=== PATIENT | female | born 1955 | race Caucasian/White ===

== ENCOUNTER 2020-11-20 15:38 | Inpatient (IN) ==
--- OUTSIDE RECORDS SUMMARY | 2020-11-20 15:40 | External Medical Summary | Continuity of Care Document ---
:1955 Author Name Waldemar Vega Address Unavailable Unavailable , Care Team Providers Name Role Phone Osbaldo Pitts III, M.D.. Unavailable 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 Refills: 0 traMADol HCl - 50 MG Oral Tablet; TAKE 1 TABLET EVERY 4 HOUR S NEEDED. Refills: 0 metFORMIN HCl - 500 MG Oral Tablet; TAKE 1 TABLET TWICE NATALEE Y WITH MEALS. Refills: 0 Lisinopril 10 MG Oral Tablet; TAKE 1 TABLET DAILY. Refills: 0 Glimepiride 2 MG Oral Tablet; TAKE 1 TABLET DAILY WITH BREAK FAST. Refills: 0 FLUoxetine HCl - 20 MG Oral Capsule; TAKE 1 CAPSULE DAILY. Refills: 0 Clopidogrel Bisulfate 75 MG Oral Tablet; TAKE 1 TABLET DAILY . Refills: 0 Atorvastatin Calcium 40 MG Oral Tablet; TAKE 1 TABLET DAILY. Refills: 0 ALPRAZolam 0.25 MG Oral Tablet; TAKE 0.5 MG BY MOUTH EVERY 8 HOURS NEEDED. Refills: 0 Procedures Procedures not documented Immunizations Immunizations not documented Social History - Smoking Status Ex-smoker Ex-smoker Plan of Treatment Planned Observations Planned Goals not documented Results No Known Results Results not documented
[2020-11-20] MEDS ORDERED: SODIUM CHLORIDE 0.9% 1000ML 1,000 ML IV ONE ×2 (16:04→16:28)
[2020-11-20] MEDS ORDERED: ONDANSETRON INJ 2 MG/ML 2 ML VIAL IV STA (16:07)
--- NOTE | 2020-11-20 16:07 | Emergency Department Note ---
Impression & Plan Sepsis, Pyelonephritis, SAURAV (acute kidney injury) ED Provider Note NAME: EYAL COULTER AGE: 65 SEX: F : 1955 ARRIVES VIA: Ambulance INFORMANT: Patient ED PROVIDER(S): Wilfredo Ruiz DO CHIEF COMPLAINT: vomiting HPI: Patient is a 65-year-old female with a past medical history of hyperlipidemia, hypertension, diabetes and cerebral hemorrhage that presents to the ER for left flank pain associate with nausea and vomiting. Symptoms started Wednesday. She has left mid abdominal pain. No other exacerbating or remitting factors. Patient has been unable to keep any of his medications down. Denies any cough or runny nose. Had dysuria last week along with blood in the urine but nothing since then. No other exacerbating or remitting factors. She has been unable to keep down any food. She has fallen twice as she having trouble walking intermittently when she feels lightheaded. ROS: See above HPI for pertinent positives & negatives. A total of 10 systems reviewed and were otherwise negative. PAST MEDICAL HISTORY:See Below PAST SURGICAL HISTORY:See Below FAMILY HISTORY:See Below SOCIAL HISTORY:See Below HOME MEDICATIONS:See Below ALLERGIES:See Below VITALS:See Below PHYSICAL EXAMINATION: GENERAL: Sitting up in bed, alert, ill-appearing, disheveled EYE EXAM: normal conjunctiva. OROPHARYNX: no exudate, no erythema, lips, buccal mucosa, and tongue normal and mucous membranes are dry NECK: supple, no nuchal rigidity, no adenopathy, non-tender LUNGS: Clear to auscultation. Normal chest wall mechanics HEART: Tachycardic, S1 normal and S2 normal ABDOMEN: abdomen soft, tender in left midabdomen, normo-active bowel sounds, no masses, no rebound or guarding. BACK: Back is symmetrical on inspection and there is no deformity, no midline tenderness, no CVA tenderness. SKIN: no rashes and no bruising UPPER EXTREMITIES: upper extremities are grossly normal. LOWER EXTREMITIES: No pitting edema. NEURO EXAM: Normal sensorium, cranial nerves II-XII intact, normal speech, no weakness of arms, no weakness of legs. No drift. Finger to nose intact. Gross sensation intact. MEDICAL DECISION MAKING: Patient is a 65-year-old female who presents to the ER for vomiting and flank pain. IV was established blood work was obtained. Labs show leukocytosis of 18,000. Heart rate was fairly tachycardic in the low 100s. VBG was unremarkable. BMP with a sodium of 121 and a chloride of 84 with a creatinine of 2.5 up from baseline of 1. Glucose was elevated at 500. LFTs bilirubin was unremarkable. Lipase was normal. Patient was started on insulin drip and given a bolus. Urine was nitrite positive with epithelial cells bacteria and white cells suggestive of contamination likely infection. Covid was negative. CT abdomen pelvis shows likely a pyelonephritis. Patient was given broad-spectrum antibiotics and 2 L IV fluids was updated bedside discussed with the hospitalist for further work-up. Triage Nursing notes reviewed. Limited review of prior medical records performed Vital Signs: reviewed and remarkable for tachy Differential diagnosis: Infection, dehydration, metabolic abnormality, hypo/hyperglycemia, electrolyte disturbance, anemia, hypoxia, cardiac sources, intracerebral event, toxicologic, neurologic, as well as other pathologies. ER treatment provided: See below Diagnostics interpreted by me: ECG: Sinus tachycardia rate of 106 Normal axis No PVCs QTC [address] wave changes throughout the inferior anterior and lateral Cardiac Monitoring: An order was placed for continuous cardiac monitoring. The monitor shows a rate of 104 with sinus rhythm. Laboratory studies: As stated above and show below. Imaging studies: CT the head shows no acute pathology CT abdomen pelvis shows likely pyelonephritis X-ray of the shoulder and chest x-ray showed no acute pathology Consultation(s): Discussed with the hospitalist for further evaluation Procedures: none Critical Care: I have personally spent 45 minutes of critical care time in the direct management of this patient. This includes bedside care, interpretation of diagnostic studies, and testing, discussion with consultants, patient, and [facility] members, and other required patient management activities. This 45 minutes is in excess of all separately billable procedures. Past Med/Surg History Medical History (Updated 11/20/20 @ 20:38 by Wilfredo Ruiz DO) Anxiety and depression CVA (cerebral vascular accident) Diabetes mellitus, type II Dyslipidemia HTN (hypertension) Surgical History (Updated 11/20/20 @ 18:02 by Manyd Torres PA-C) H/O cerebral aneurysm repair 1976 Family History (Updated 11/20/20 @ 18:52 by Mandy Torres PA-C) Other Cancer Hypertension Social History (Updated 11/20/20 @ 18:53 by Mandy Torres PA-C) Smoking Status: Former smoker Tobacco Type: Cigarettes Hx Alcohol Use: Yes Alcohol type: wine Alcohol Intake Frequency: Monthly or Less Hx Substance Use: No Preferred Language: [place] Beliefs That Will Affect Care: None Current Living Situation: Alone Feels Safe at Home: Yes Safety Concerns: Feels Safe At This Time Assistive Devices: None Allergies Allergies Allergy/AdvReac Type Severity Reaction Status Date / Time Penicillins Allergy Unknown Unknown Verified 11/20/20 17:30 phenytoin Allergy Unknown Hives Verified 11/20/20 17:30 Home Meds Home Medications Medication Instructions Recorded Confirmed bupropion HCl 150 mg PO BID 11/20/20 11/20/20 clopidogrel 75 mg PO DAILY 11/20/20 11/20/20 glimepiride 6 mg PO DAILYBB 11/20/20 11/20/20 hydroxyzine pamoate 25 mg PO HS PRN 11/20/20 11/20/20 lisinopril-hydrochlorothiazide 1 tab PO DAILY 11/20/20 11/20/20 metformin 1,000 mg PO BIDM 11/20/20 11/20/20 simvastatin 40 mg PO HS 11/20/20 11/20/20 Results & Data (ED) Vital Signs Vital Signs - 24 hr 11/20/20 15:58 11/20/20 17:30 Temperature 36.9 C Temperature Source Oral Pulse Rate 107 H Pulse Rate [Right Finger] 102 H Respiratory Rate 24 16 Respiratory Effort / Characteristics Non-Labored Spontaneous Respiratory Depth Normal Respiratory Pattern Regular Blood Pressure 124/101 H Blood Pressure [Right Arm] 133/88 Blood Pressure Mean 108 Blood Pressure Mean [Right Arm] 103 Blood Pressure Position Lying Pulse Oximetry 97 96 Oxygen Delivery Method Room Air Room Air Sepsis Recent Fever Within 48 Hours No Sepsis New/Unexplained Change in Mental Status N/A Sepsis Action Taken by Nursing No Action Required Laboratory Data Result diagrams: 11/20/20 15:53 11/20/20 15:53 Lab Results 11/20/20 11/20/20 11/20/20 Range/Units 15:50 15:53 15:53 WBC 18.95 H (4.8-10.8) K/uL RBC 4.82 (4.2-5.4) M/uL Hgb 13.0 (12.0-16.0) g/dL POC Hgb (12.0-16.0) g/dl Hct 37.7 (37-47) % POC Hct (37-47) % MCV 78.2 L (80-100) fL MCH 27.0 (25-34) pg MCHC 34.5 (32-36) g/dL RDW Std Deviation 40.0 (36.4-46.3) fL RDW Coeff of Jam 14.0 (11.5-14.5) % Plt Count 249 (130-400) K/uL MPV 11.7 H (7.4-10.4) fL Immature Gran % (Auto) 0.7 % Neut % (Auto) 86.3 % Lymph % (Auto) 6.2 % [place] % (Auto) 6.6 % Eos % (Auto) 0.1 % Baso % (Auto) 0.1 % Neut # (Auto) 16.37 H (1.4-6.5) K/uL Lymph # (Auto) 1.17 L (1.2-3.4) K/uL [place] # (Auto) 1.25 H (0.11-0.59) K/uL Eos # (Auto) 0.01 (0-0.5) K/uL Baso # (Auto) 0.02 (0-0.2) K/uL Immature Gran # (Auto) 0.13 H (0.00-0.02) K/uL VBG pH (7.36-7.41) VBG pCO2 (38-50) mmHg VBG pO2 mmHg VBG HCO3 mmol/L VBG O2 Saturation % VBG Base Excess mEq/L Barometric Pressure mm/Hg POC Sodium (135-144) mmol/L Sodium 121 L (136-145) mmol/L POC Potassium (3.3-5.0) mmol/L Potassium 3.8 (3.5-5.1) mmol/L POC Chloride (101-112) mmol/L Chloride 84 L (98-107) mmol/L Carbon Dioxide 24 (21-32) mmol/L POC Total CO2 (24-31) mmol/L Anion Gap 13.0 H (3-11) POC Anion Gap (16-25) mmol/L POC BUN (7-18) mg/dl BUN 56 H (7-18) mg/dl Creatinine 2.58 H (0.6-1.2) mg/dl POC Creatinine (0.6-1.3) mg/dl Est Cr Clr Drug Dosing 23.0 ml/min Est GFR ( Amer) 22.1 Est GFR (Non-Af Amer) 19.0 BUN/Creatinine Ratio 21.9 H (10-20) Glucose 480 H* (70-99) mg/dl POC Glucose 510 H* (70-99) mg/dl POC Glucose (other) (70-99) mg/dl Calcium 9.2 (8.5-10.1) mg/dl POC Ioniz Calcium Trixie (1.12-1.32) mmol/l Phosphorus (2.5-4.9) mg/dl Magnesium (1.8-2.4) mg/dl Total Bilirubin 0.5 (0.2-1) mg/dl AST 17 (15-37) U/L ALT 11 L (12-78) U/L Alkaline Phosphatase 175 H (45-117) U/L Troponin I < 0.015 (0-0.045) ng/ml Total Protein 8.3 H (6.4-8.2) gm/dl Albumin 2.3 L (3.4-5.0) gm/dl Globulin 6.0 H (2.5-4.0) gm/dl Albumin/Globulin Ratio 0.4 L (0.9-2) Lipase 127 (73-393) U/L Beta-Hydroxybutyric Acd (0.2-2.81) mg/dl Urine Color Urine Appearance (Clear) Urine pH (4.5-7.5) Ur Specific [place] (1.000-1.030) Urine Protein (Negative) Urine Glucose (UA) (Negative) Urine Ketones (Negative) Urine Blood (Negative) Urine Nitrite (Negative) Urine Bilirubin (Negative) Urine Urobilinogen (Negative) Ur Leukocyte Esterase (Negative) Urine WBC (Auto) (0-5) /hpf Urine RBC (Auto) (0-4) /hpf U Hyaline Cast (Auto) (0-5) /lpf U Epithel Cells (Auto) (0-5) /lpf Urine Bacteria (Auto) (Negative) Urine Yeast COVID-19 Eval Order SARS-CoV-2, RNA, NAAT (NEGATIVE) 11/20/20 11/20/20 11/20/20 Range/Units 15:53 16:19 16:20 WBC (4.8-10.8) K/uL RBC (4.2-5.4) M/uL Hgb (12.0-16.0) g/dL POC Hgb (12.0-16.0) g/dl Hct (37-47) % POC Hct (37-47) % MCV (80-100) fL MCH (25-34) pg MCHC (32-36) g/dL RDW Std Deviation (36.4-46.3) fL RDW Coeff of Jam (11.5-14.5) % Plt Count (130-400) K/uL MPV (7.4-10.4) fL Immature Gran % (Auto) % Neut % (Auto) % Lymph % (Auto) % [place] % (Auto) % Eos % (Auto) % Baso % (Auto) % Neut # (Auto) (1.4-6.5) K/uL Lymph # (Auto) (1.2-3.4) K/uL [place] # (Auto) (0.11-0.59) K/uL Eos # (Auto) (0-0.5) K/uL Baso # (Auto) (0-0.2) K/uL Immature Gran # (Auto) (0.00-0.02) K/uL VBG pH 7.38 (7.36-7.41) VBG pCO2 44 (38-50) mmHg VBG pO2 27 mmHg VBG HCO3 25 mmol/L VBG O2 Saturation < 60.0 % VBG Base Excess 0 mEq/L Barometric Pressure 724.9 mm/Hg POC Sodium (135-144) mmol/L Sodium (136-145) mmol/L POC Potassium (3.3-5.0) mmol/L Potassium (3.5-5.1) mmol/L POC Chloride (101-112) mmol/L Chloride (98-107) mmol/L Carbon Dioxide (21-32) mmol/L POC Total CO2 (24-31) mmol/L Anion Gap (3-11) POC Anion Gap (16-25) mmol/L POC BUN (7-18) mg/dl BUN (7-18) mg/dl Creatinine (0.6-1.2) mg/dl POC Creatinine (0.6-1.3) mg/dl Est Cr Clr Drug Dosing ml/min Est GFR ( Amer) Est GFR (Non-Af Amer) BUN/Creatinine Ratio (10-20) Glucose (70-99) mg/dl POC Glucose (70-99) mg/dl POC Glucose (other) (70-99) mg/dl Calcium (8.5-10.1) mg/dl POC Ioniz Calcium Trixie (1.12-1.32) mmol/l Phosphorus 3.2 (2.5-4.9) mg/dl Magnesium 2.4 (1.8-2.4) mg/dl Total Bilirubin (0.2-1) mg/dl AST (15-37) U/L ALT (12-78) U/L Alkaline Phosphatase (45-117) U/L Troponin I (0-0.045) ng/ml Total Protein (6.4-8.2) gm/dl Albumin (3.4-5.0) gm/dl Globulin (2.5-4.0) gm/dl Albumin/Globulin Ratio (0.9-2) Lipase (73-393) U/L Beta-Hydroxybutyric Acd (0.2-2.81) mg/dl Urine Color Urine Appearance (Clear) Urine pH (4.5-7.5) Ur Specific [place] (1.000-1.030) Urine Protein (Negative) Urine Glucose (UA) (Negative) Urine Ketones (Negative) Urine Blood (Negative) Urine Nitrite (Negative) Urine Bilirubin (Negative) Urine Urobilinogen (Negative) Ur Leukocyte Esterase (Negative) Urine WBC (Auto) (0-5) /hpf Urine RBC (Auto) (0-4) /hpf U Hyaline Cast (Auto) (0-5) /lpf U Epithel Cells (Auto) (0-5) /lpf Urine Bacteria (Auto) (Negative) Urine Yeast COVID-19 Eval Order Covid19 IDNow [facility] SARS-CoV-2, RNA, NAAT (NEGATIVE) 11/20/20 11/20/20 11/20/20 Range/Units 16:20 16:21 17:20 WBC (4.8-10.8) K/uL RBC (4.2-5.4) M/uL Hgb (12.0-16.0) g/dL POC Hgb 13.6 (12.0-16.0) g/dl Hct (37-47) % POC Hct 40 (37-47) % MCV (80-100) fL MCH (25-34) pg MCHC (32-36) g/dL RDW Std Deviation (36.4-46.3) fL RDW Coeff of Jam (11.5-14.5) % Plt Count (130-400) K/uL MPV (7.4-10.4) fL Immature Gran % (Auto) % Neut % (Auto) % Lymph % (Auto) % [place] % (Auto) % Eos % (Auto) % Baso % (Auto) % Neut # (Auto) (1.4-6.5) K/uL Lymph # (Auto) (1.2-3.4) K/uL [place] # (Auto) (0.11-0.59) K/uL Eos # (Auto) (0-0.5) K/uL Baso # (Auto) (0-0.2) K/uL Immature Gran # (Auto) (0.00-0.02) K/uL VBG pH (7.36-7.41) VBG pCO2 (38-50) mmHg VBG pO2 mmHg VBG HCO3 mmol/L VBG O2 Saturation % VBG Base Excess mEq/L Barometric Pressure mm/Hg POC Sodium 120 L (135-144) mmol/L Sodium (136-145) mmol/L POC Potassium 3.9 (3.3-5.0) mmol/L Potassium (3.5-5.1) mmol/L POC Chloride 86 L (101-112) mmol/L Chloride (98-107) mmol/L Carbon Dioxide (21-32) mmol/L POC Total CO2 26 (24-31) mmol/L Anion Gap (3-11) POC Anion Gap 13.0 L (16-25) mmol/L POC BUN 60 H (7-18) mg/dl BUN (7-18) mg/dl Creatinine (0.6-1.2) mg/dl POC Creatinine 2.5 H (0.6-1.3) mg/dl Est Cr Clr Drug Dosing ml/min Est GFR ( Amer) Est GFR (Non-Af Amer) BUN/Creatinine Ratio (10-20) Glucose (70-99) mg/dl POC Glucose (70-99) mg/dl POC Glucose (other) 501 H* (70-99) mg/dl Calcium (8.5-10.1) mg/dl POC Ioniz Calcium Trixie 1.02 L (1.12-1.32) mmol/l Phosphorus (2.5-4.9) mg/dl Magnesium (1.8-2.4) mg/dl Total Bilirubin (0.2-1) mg/dl AST (15-37) U/L ALT (12-78) U/L Alkaline Phosphatase (45-117) U/L Troponin I (0-0.045) ng/ml Total Protein (6.4-8.2) gm/dl Albumin (3.4-5.0) gm/dl Globulin (2.5-4.0) gm/dl Albumin/Globulin Ratio (0.9-2) Lipase (73-393) U/L Beta-Hydroxybutyric Acd (0.2-2.81) mg/dl Urine Color Yellow Urine Appearance Turbid A (Clear) Urine pH 5.5 (4.5-7.5) Ur Specific [place] 1.022 (1.000-1.030) Urine Protein 3+ H (Negative) Urine Glucose (UA) 3+ H (Negative) Urine Ketones 1+ H (Negative) Urine Blood 3+ H (Negative) Urine Nitrite Positive A (Negative) Urine Bilirubin Negative (Negative) Urine Urobilinogen Negative (Negative) Ur Leukocyte Esterase 2+ H (Negative) Urine WBC (Auto) >30 H (0-5) /hpf Urine RBC (Auto) 10-30 H (0-4) /hpf U Hyaline Cast (Auto) 1-5 (0-5) /lpf U Epithel Cells (Auto) >30 H (0-5) /lpf Urine Bacteria (Auto) 4+ H (Negative) Urine Yeast Not Reportable COVID-19 Eval Order SARS-CoV-2, RNA, NAAT NEGATIVE (NEGATIVE) 11/20/20 Range/Units 17:28 WBC (4.8-10.8) K/uL RBC (4.2-5.4) M/uL Hgb (12.0-16.0) g/dL POC Hgb (12.0-16.0) g/dl Hct (37-47) % POC Hct (37-47) % MCV (80-100) fL MCH (25-34) pg MCHC (32-36) g/dL RDW Std Deviation (36.4-46.3) fL RDW Coeff of Jam (11.5-14.5) % Plt Count (130-400) K/uL MPV (7.4-10.4) fL Immature Gran % (Auto) % Neut % (Auto) % Lymph % (Auto) % [place] % (Auto) % Eos % (Auto) % Baso % (Auto) % Neut # (Auto) (1.4-6.5) K/uL Lymph # (Auto) (1.2-3.4) K/uL [place] # (Auto) (0.11-0.59) K/uL Eos # (Auto) (0-0.5) K/uL Baso # (Auto) (0-0.2) K/uL Immature Gran # (Auto) (0.00-0.02) K/uL VBG pH (7.36-7.41) VBG pCO2 (38-50) mmHg VBG pO2 mmHg VBG HCO3 mmol/L VBG O2 Saturation % VBG Base Excess mEq/L Barometric Pressure mm/Hg POC Sodium (135-144) mmol/L Sodium (136-145) mmol/L POC Potassium (3.3-5.0) mmol/L Potassium (3.5-5.1) mmol/L POC Chloride (101-112) mmol/L Chloride (98-107) mmol/L Carbon Dioxide (21-32) mmol/L POC Total CO2 (24-31) mmol/L Anion Gap (3-11) POC Anion Gap (16-25) mmol/L POC BUN (7-18) mg/dl BUN (7-18) mg/dl Creatinine (0.6-1.2) mg/dl POC Creatinine (0.6-1.3) mg/dl Est Cr Clr Drug Dosing ml/min Est GFR ( Amer) Est GFR (Non-Af Amer) BUN/Creatinine Ratio (10-20) Glucose (70-99) mg/dl POC Glucose 452 H* (70-99) mg/dl POC Glucose (other) (70-99) mg/dl Calcium (8.5-10.1) mg/dl POC Ioniz Calcium Trixie (1.12-1.32) mmol/l Phosphorus (2.5-4.9) mg/dl Magnesium (1.8-2.4) mg/dl Total Bilirubin (0.2-1) mg/dl AST (15-37) U/L ALT (12-78) U/L Alkaline Phosphatase (45-117) U/L Troponin I (0-0.045) ng/ml Total Protein (6.4-8.2) gm/dl Albumin (3.4-5.0) gm/dl Globulin (2.5-4.0) gm/dl Albumin/Globulin Ratio (0.9-2) Lipase (73-393) U/L Beta-Hydroxybutyric Acd (0.2-2.81) mg/dl Urine Color Urine Appearance (Clear) Urine pH (4.5-7.5) Ur Specific [place] (1.000-1.030) Urine Protein (Negative) Urine Glucose (UA) (Negative) Urine Ketones (Negative) Urine Blood (Negative) Urine Nitrite (Negative) Urine Bilirubin (Negative) Urine Urobilinogen (Negative) Ur Leukocyte Esterase (Negative) Urine WBC (Auto) (0-5) /hpf Urine RBC (Auto) (0-4) /hpf U Hyaline Cast (Auto) (0-5) /lpf U Epithel Cells (Auto) (0-5) /lpf Urine Bacteria (Auto) (Negative) Urine Yeast COVID-19 Eval Order SARS-CoV-2, RNA, NAAT (NEGATIVE) Administered Medications Insulin Human Regular 250 (units/ Sodium Chloride) 250 mls @ 3.3 mls/hr IV .Q24H [facility]; Protocol Stop: 12/20/20 17:14 Last Titration: 11/20/20 19:48 Dose: 4 units/hr, 4 mls/hr Documented by: [id number] Cosigned by: [id number] Admin: 11/20/20 18:38 Dose: 3.3 units/hr, 3.3 mls/hr Documented by: [id number] Cosigned by: [id number] Discontinued Medications Sodium Chloride (Nss 1000ml) 1,000 mls @ 999 mls/hr IV .Q1H1M ONE Stop: 11/20/20 17:04 Last Infusion: 11/20/20 17:23 Dose: 0 mls/hr Documented by: [id number] Admin: 11/20/20 16:27 Dose: 999 mls/hr Documented by: [id number] Potassium Chloride (K Shahram / Wtr) 10 meq in 100 mls @ 100 mls/hr IV Q1H DAVID Stop: 11/20/20 18:29 Last Admin: 11/20/20 18:46 Dose: 100 mls/hr Documented by: [id number] Infusion: 11/20/20 18:09 Dose: 0 mls/hr Documented by: [id number] Admin: 11/20/20 17:02 Dose: 100 mls/hr Documented by: [id number] Sodium Chloride (Nss 1000ml) 1,000 mls @ 999 mls/hr IV .Q1H1M ONE Stop: 11/20/20 17:28 Last Infusion: 11/20/20 19:15 Dose: 0 mls/hr Documented by: [id number] Admin: 11/20/20 18:09 Dose: 999 mls/hr Documented by: [id number] Cefepime HCl (Maxipime) 2,000 mg in 20 mls @ 5 mls/min IV NOW STA; Protocol Stop: 11/20/20 17:18 Last Admin: 11/20/20 18:37 Dose: 5 mls/min Documented by: [id number] Insulin Human Regular (Novolin-R Bolus From Bag) 3.5 units IV ONE ONE Stop: 11/20/20 17:46 Last Admin: 11/20/20 18:40 Dose: 3.5 units Documented by: [id number] Cosigned by: [id number] Miscellaneous (Insulin Protocol Goal Range ) 1 ea N/A ONE ONE Stop: 11/20/20 17:16 Last Admin: 11/20/20 18:46 Dose: Not Given Documented by: [id number] Ondansetron HCl (Ondansetron Inj 2 Mg/Ml 2 Ml Vial) 4 mg IV NOW STA Stop: 11/20/20 16:08 Last Admin: 11/20/20 16:27 Dose: 4 mg Documented by: [id number] Discharge Plan Visit Data Chief Complaint: Vomiting Stated Complaint: VOMITING, WEAKNESS, HYPERGLYCEMIA ED Provider: Wilfredo Ruiz Discharge Problem: Sepsis, Pyelonephritis, SAURAV (acute kidney injury) Patient Disposition: Admitted As Inpatient Discharge Instructions Interventions: ED Discharge Assessment Last Done: 11/20/20 19:17 Discharge Problem: Sepsis Qualifiers: Sepsis type: sepsis due to unspecified organism Sepsis acute organ dysfunction status: unspecified Qualified Code(s): A41.9 - Sepsis, unspecified organism
[2020-11-20 16:14] LABS: Basophils # (auto) 0.02 K/uL (0-0.2); Basophils % (auto) 0.1 %; Eosinophils # (auto) 0.01 K/uL (0-0.5); Eosinophils % (auto) 0.1 %; Hematocrit (blood only) 37.7 % (37-47); Immature Granulocytes # (auto) 0.13 K/uL (0.00-0.02); Immature Granulocytes % (auto) 0.7 %; Lymphocytes # (auto) 1.17 K/uL (1.2-3.4); Lymphocytes % (auto) 6.2 %; Mean Corpuscular Hgb Conc 34.5 g/dL (32-36); Mean Corpuscular Volume 78.2 fL (80-100); Mean Platelet Volume 11.7 fL (7.4-10.4); Monocytes # (auto) 1.25 K/uL (0.11-0.59); Monocytes % (auto) 6.6 %; Neutrophils # (auto) 16.37 K/uL (1.4-6.5); Neutrophils % (auto) 86.3 %; Platelet Count 249 K/uL (130-400); Red Blood Count 4.82 M/uL (4.2-5.4); White Blood Count 18.95 K/uL (4.8-10.8)
--- NOTE | 2020-11-20 16:22 | Electrocardiogram Report ---
Test Reason : Blood Pressure : / mmHG Vent. Rate : 106 BPM Atrial Rate : 106 BPM P-R Int : 164 ms QRS Dur : 078 ms QT Int : 320 ms P-R-T Axes : 071 003 047 degrees QTc Int : 425 ms Sinus tachycardia Otherwise normal ECG When compared with ECG of 06-MAY-2016 12:08, Criteria for Septal infarct are no longer Present Nonspecific T wave abnormality no longer evident in Inferior leads Confirmed by Mitchell Alarcon ([id number]) on 11/20/2020 4:21:54 PM Referred By: REFERRED SELF Confirmed By:Mitchell Alarcon
--- NOTE | 2020-11-20 16:29 | XRay Report ---
SINGLE VIEW CHEST CLINICAL HISTORY: Atypical chest pain. FINDINGS: An AP, portable, upright chest radiograph is compared to study dated 05/06/2016. The cardiom ediastinal silhouette is unremarkable. There is bibasilar scarring/atelectasis. No airspace consolida tion or large pleural effusion is identified. No pneumothorax is seen. The skeletal structures are os teopenic. The bony thorax is grossly intact. IMPRESSION: No acute cardiopulmonary abnormality. ACT 112: Negative or not required by law. Electronically signed by: Carl Costello M.D. 11/20/2020 4:27 PM
--- NOTE | 2020-11-20 16:30 | XRay Report ---
LEFT SHOULDER 3 VIEWS CLINICAL HISTORY: Left shoulder pain. FINDINGS: 3 views of the left shoulder are obtained. No prior studies are available for comparison at the time of dictation. The skeletal structures are osteopenic. There is no radiographic evidence of fracture or dislocation. The glenohumeral and acromioclavicular joints are maintained. There is evide nce of calcific tendinopathy. The overlying soft tissues are otherwise normal in appearance. The left lung parenchyma is clear as visualized. IMPRESSION: 1. No acute bony abnormality is identified. 2. Calcific tendinopathy. Electronically signed by: Carl Costello M.D. 11/20/2020 4:28 PM
[2020-11-20 16:31] LABS: Base Excess VBG 0 mEq/L; HCO3 VBG 25 mmol/L; PCO2 VBG 44 mmHg (38-50); PO2 VBG 27 mmHg; pH VBG 7.38 (7.36-7.41)
[2020-11-20 16:36] LABS: iSTAT Creatinine 2.5 mg/dl (0.6-1.3); iSTAT Hemoglobin 13.6 g/dl (12.0-16.0); iSTAT Ionized Calcium 1.02 mmol/l (1.12-1.32); iSTAT Potassium 3.9 mmol/L (3.3-5.0)
[2020-11-20 16:52] LABS: Alanine Aminotransferase 11 U/L (12-78); Albumin Globulin Ratio 0.4 (0.9-2); Albumin Level 2.3 gm/dl (3.4-5.0); Alkaline Phosphatase 175 U/L (45-117); BUN Creatinine Ratio 21.9 (10-20); Bilirubin,Total 0.5 mg/dl (0.2-1); Blood Urea Nitrogen 56 mg/dl (7-18); Calcium 9.2 mg/dl (8.5-10.1); Carbon Dioxide 24 mmol/L (21-32); Chloride 84 mmol/L (98-107); Est GFR (African American) 22.1; Glucose 480 mg/dl (70-99); Lipase 127 U/L (73-393); Sodium 121 mmol/L (136-145); Total Protein 8.3 gm/dl (6.4-8.2); Troponin I < 0.015 ng/ml (0-0.045)
--- NOTE | 2020-11-20 16:55 | CT Scan Report ---
CT SCAN OF THE BRAIN WITHOUT IV CONTRAST CLINICAL HISTORY: Fall. COMPARISON STUDY: CT of the brain dated 05/06/2016. TECHNIQUE: Unenhanced axial CT scan of the brain is performed from the vertex to the skull base. A d ose lowering technique was utilized adhering to the principles of ALARA. The examination is degraded by streak artifact from aneurysm coils. 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 There is ex vacuo dilatation of the right lateral ventricle. There is no hemorrhage, mass effect, or evidence of acute territorial ischemia by CT criteria. Hamilton-white matter differentiation is preserved. No extra-axial fluid collection is seen. Ventricles, sulci, cisterns: Normal in configuration. Intracranial vasculature: There is atherosclerotic calcification of the cavernous carotid arteries. A neurysm coils are noted in the right aspect of the suprasellar region. Calvarium: The skeletal structures are osteopenic. There is postoperative change along the right conv exity. No depressed calvarial fracture is identified. Sinuses and mastoids: The visualized paranasal sinuses are clear. The mastoid air cells are well pneu matized. Orbits: The bony orbits are grossly intact. IMPRESSION: 1. There is no hemorrhage, mass effect, or evidence of acute territorial ischemia by CT criteria. 2. Chronic and postoperative changes as above. ACT 112: Negative or not required by law. Electronically signed by: Carl Costello M.D. 11/20/2020 4:53 PM
[2020-11-20 16:56] LABS: Oxygen Saturation VBG < 60.0 %
[2020-11-20] MEDS: POTASSIUM CHLORIDE / WTR 10 MEQ/100 ML PLCT IV SCH ×2 (17:02→18:46)
--- NOTE | 2020-11-20 17:02 | CT Scan Report ---
CT OF THE ABDOMEN AND PELVIS WITHOUT CONTRAST CLINICAL HISTORY: Left-sided abdominal pain. COMPARISON STUDY: No previous studies for comparison. TECHNIQUE: Axial images of the abdomen and pelvis were obtained without IV contrast. Images were revi ewed in the axial, sagittal, and coronal planes. Automated exposure control was utilized for the cain dy. A dose lowering technique was utilized adhering to the principles of ALARA. FINDINGS: Lung bases are unremarkable. No pneumatosis, free air or portal venous gas is present. Ther e is a sebaceous cyst of the right lower back. No renal, ureteral or bladder calculi are present. The re is no hydronephrosis or hydroureter. There is asymmetric mild left perinephric infiltration. The l eft kidney may be enlarged. There is possible wall thickening of the left ureter. No renal fluid leno ection is identified on this unenhanced examination. Evaluation of the abdomen and pelvis is suboptim al on this unenhanced examination. A 2.1 cm low-attenuation left adrenal nodule favors an adenoma. Th e liver, spleen, right adrenal gland and pancreas are unremarkable. There is no biliary or pancreatic ductal dilatation. There is no evidence for a bowel obstruction. Left colon diverticulosis is noted without evidence for acute diverticulitis. Left periureteral infiltration is present. There is mild r ight perinephric infiltration. No acute fracture or suspicious lesion is identified within visualized skeletal structures. IMPRESSION: 1. Asymmetric left perinephric and periureteral infiltration with possible urothelial thickening. The findings favor an infectious process such as left pyelonephritis/pyelitis. A recently passed calculu s could appear similar although is considered less likely. 2. No bowel obstruction. 3. Left colon diverticulosis without evidence for acute diverticulitis. ACT 112: Negative or not required by law. Electronically signed by: Aguila Butler M.D. 11/20/2020 5:00 PM
[2020-11-20 17:13] LABS: Aspartate Aminotransferase 17 U/L (15-37); Potassium 3.8 mmol/L (3.5-5.1)
[2020-11-20] MEDS ORDERED: INSULIN PROTOCOL GOAL RANGE ONE (17:15)
[2020-11-20] MEDS ORDERED: INSULIN REGULAR 250 UNITS in SODIUM CHLORIDE 0.9% 247.5 ML IV SCH ×2 (17:15→20:35)
[2020-11-20] MEDS ORDERED: CEFEPIME 2,000 MG/20 ML VIAL IV STA (17:15)
[2020-11-20] MEDS ORDERED: SEVERE STRESS LEVEL ONE (17:15)
[2020-11-20 17:36] LABS: Appearance Urine Turbid (Clear); Bacteria Urine Automated 4+ (Negative); Bilirubin Urine Negative (Negative); Blood Urine 3+ (Negative); Color Urine Yellow; Epithelial Cell Urine Auto >30 /lpf (0-5); Glucose Urine UA 3+ (Negative); Ketones Urine 1+ (Negative); Leukocyte Esterase Urine 2+ (Negative); Nitrite Urine Positive (Negative); Protein Urine 3+ (Negative); Specific Gravity Urine 1.022 (1.000-1.030); Urobilinogen Urine Negative (Negative); WBC Urine Automated >30 /hpf (0-5); pH Urine 5.5 (4.5-7.5)
[2020-11-20] MEDS ORDERED: NovoLIN-R BOLUS FROM BAG IV ONE (17:45)
[2020-11-20 18:57] LABS: Magnesium 2.4 mg/dl (1.8-2.4); Phosphorus 3.2 mg/dl (2.5-4.9)
--- NOTE | 2020-11-20 18:57 | History & Physical Report ---
Date of Service November 20, 2020 Assessment & Plan (1) Sepsis: (2) Pyelonephritis: Possible developing Sepsis Pt is 65y/o F with PMH DM II, HTN, HLD, CVA, anxiety, depression presented to ER with C/O dysuria, hematuria x 4-5 days and nausea & vomiting x 3 days with left flank pain. Afebrile, tachycardic in ER 107, WBC: 18.9, UA consistent with infection CT abdomen/pelvis: 1. Asymmetric left perinephric and periureteral infiltration with possible urothelial thickening. The findings favor an infectious process such as left pyelonephritis/pyelitis. A recently passed calculus could appear similar although is considered less likely. 2. No bowel obstruction. 3. Left colon diverticulosis without evidence for acute diverticulitis. Blood culture, urine culture pending In ER given cefepime, 2L NSS Continue cefepime, renal dosed Pending lactate Clear liquid diet for now IVF AM labs (3) Stress hyperglycemia: Glucose 510. Normal pH. Anion gap:13, + ketones urine, beta hydroxybutyric acid unavailable secondary to hemolysis Patient not taking oral diabetes medicines for several days secondary to vomiting In ER received insulin R3 0.5 units IV, insulin drip started. Potassium total 20 MEQ IV, 2 L NSS Continue with IV insulin, glycemic pharmacist on board to assist in glycemic management BMP in a.m. A1c in a.m. (last A1c 7.8 in 06/2019) Hold home oral meds (4) Diabetes mellitus, type II: (5) SAURAV (acute kidney injury): BUN: 56, creatinine: 2.5, BUN/creatinine ratio: 22. Baseline creatinine 0.9 with GFR>60 Hold oral diabetes medication Hold lisinopril/HCTZ IVF Monitor renal functions, avoid other nephrotoxic agents and possible If no improvement consider nephrology consult (6) Fall: Generalized weakness Patient with reported generalized weakness and unsteadiness. Reports fall. Likely secondary to underlying infection, hyperglycemia Left shoulder x-ray no acute fracture. No acute findings on CT head PT OT eval (7) Hyponatremia: Corrected Na: 128 for glucose of 510 Received 2L NSS in ER Monitor BMP (8) HTN (hypertension): In ER initial was 124/101 down to 133/88 Hold lisinopril/HCTZ secondary to SAURAV Monitor BP, may need to add additional BP agent (9) CVA (cerebral vascular accident): Continue Plavix, simvastatin (10) Anxiety and depression: Hold bupropion for now secondary to SAURAV. Decrease dose Vistaril secondary to SAURAV DVT Prophylaxis -SCDs DNR/DNI as per discussion with pt Follows with Dr Pimentel for routine care Pt was seen and care coordinated with Dr Ventura. See addendum History of Present Illness Chief Complaint: N/V Primary Care Provider: Dr Pimentel Pt is 65y/o F with PMH DM II, HTN, HLD, CVA, anxiety, depression presented to ER with complaint of nausea vomiting x 3 days. Patient states 4 to 5 days ago started with dysuria and hematuria. 3 days ago started with nausea and vom iting. Reports unable to retain fluids/food or her medications past couple of days. Complains of left flank pain and left lower quadrant pain. Also complains of chills. Denies any known fever. Patient states tried taking vinegar water to treat urinary symptoms without relief. She states past couple days has been feeling off balance and generalized weakness and reports that she fell. Complains of discomfort to left shoulder. Denies any other injury. Denies diaphoresis, N/V/D/C, JONES, syncope, vision changes, neck pain, CP, SOB, orthopnea, palpitations, cough, sore throat, choking, otalgia, rhinorrhea, paresthesias, extremity edema, rashes. Allergies Allergy/AdvReac Type Severity Reaction Status Date / Time Penicillins Allergy Unknown Unknown Verified 11/20/20 17:30 phenytoin Allergy Unknown Hives Verified 11/20/20 17:30 Home Medications Medication Instructions Recorded Confirmed Type bupropion HCl 150 mg PO BID 11/20/20 11/20/20 History clopidogrel 75 mg PO DAILY 11/20/20 11/20/20 History glimepiride 6 mg PO DAILYBB 11/20/20 11/20/20 History hydroxyzine pamoate 25 mg PO HS PRN 11/20/20 11/20/20 History lisinopril-hydrochlorothiazide 1 tab PO DAILY 11/20/20 11/20/20 History metformin 1,000 mg PO BIDM 11/20/20 11/20/20 History simvastatin 40 mg PO HS 11/20/20 11/20/20 History Past Med/Surg History Medical History (Updated 11/20/20 @ 22:40 by Alma Ventura, DO) Anxiety and depression CVA (cerebral vascular accident) Diabetes mellitus, type II Dyslipidemia HTN (hypertension) Surgical History (Updated 11/20/20 @ 18:02 by Mandy Torres PA-C) H/O cerebral aneurysm repair 1976 Family History (Updated 11/20/20 @ 18:52 by Mandy Torres PA-C) Other Cancer Hypertension Social History (Updated 11/20/20 @ 18:53 by Mandy Torres PA-C) Smoking Status: Former smoker Tobacco Type: Cigarettes Hx Alcohol Use: Yes Alcohol type: wine Alcohol Intake Frequency: Monthly or Less Hx Substance Use: No Preferred Language: Tajik Beliefs That Will Affect Care: None Current Living Situation: Alone Feels Safe at Home: Yes Safety Concerns: Feels Safe At This Time Assistive Devices: None Review of Systems Review of Systems: All systems reviewed & are unremarkable except as noted in HPI & below Physical Exam Physical Exam: General: no distress, obese Head: normocephalic, atraumatic Eyes: hard of hearing, PERRL, EOM's intact, conjunctiva non-injected, anicteric ENT: normal inspection external ears, nose, mucous membranes dry Neck: supple, trachea midline, non-tender to palpation Lungs: clear, no respiratory distress, no wheezing/rhonchi/rales CV: tachycardia at 110, regular rhythm, no murmur, no pretibial edema Abd: normal BS, soft, + tenderness to palpation left flank and Left CVA Ext: no cyanosis or erythema, no calf tenderness; left anterior shoulder with tenderness to palpation with active ROM; distal pulses palpable Neuro: A&O x 3, no focal deficits noted, somewhat flat affect Skin: warm, dry Results & Data Results & Data ([facility]) Vital Signs (Past 12 Hours) Vital Signs Temp Pulse Pulse Resp BP BP Pulse Ox 11/20/20 18:41 109 H 24 137/99 11/20/20 17:30 102 H 16 133/88 96 11/20/20 15:58 36.9 C 107 H 24 124/101 H 97 Laboratory Results Short CBC 11/20/20 11/20/20 11/20/20 Range/Units 15:50 15:53 15:53 WBC 18.95 H (4.8-10.8) K/uL RBC 4.82 (4.2-5.4) M/uL Hgb 13.0 (12.0-16.0) g/dL POC Hgb (12.0-16.0) g/dl Hct 37.7 (37-47) % POC Hct (37-47) % MCV 78.2 L (80-100) fL MCH 27.0 (25-34) pg MCHC 34.5 (32-36) g/dL RDW Std Deviation 40.0 (36.4-46.3) fL RDW Coeff of Jam 14.0 (11.5-14.5) % Plt Count 249 (130-400) K/uL MPV 11.7 H (7.4-10.4) fL Immature Gran % (Auto) 0.7 % Neut % (Auto) 86.3 % Lymph % (Auto) 6.2 % Ross % (Auto) 6.6 % Eos % (Auto) 0.1 % Baso % (Auto) 0.1 % Neut # (Auto) 16.37 H (1.4-6.5) K/uL Lymph # (Auto) 1.17 L (1.2-3.4) K/uL Ross # (Auto) 1.25 H (0.11-0.59) K/uL Eos # (Auto) 0.01 (0-0.5) K/uL Baso # (Auto) 0.02 (0-0.2) K/uL Immature Gran # (Auto) 0.13 H (0.00-0.02) K/uL VBG pH (7.36-7.41) VBG pCO2 (38-50) mmHg VBG pO2 mmHg VBG HCO3 mmol/L VBG O2 Saturation % VBG Base Excess mEq/L Barometric Pressure mm/Hg POC Sodium (135-144) mmol/L Sodium 121 L (136-145) mmol/L POC Potassium (3.3-5.0) mmol/L Potassium 3.8 (3.5-5.1) mmol/L POC Chloride (101-112) mmol/L Chloride 84 L (98-107) mmol/L Carbon Dioxide 24 (21-32) mmol/L POC Total CO2 (24-31) mmol/L Anion Gap 13.0 H (3-11) POC Anion Gap (16-25) mmol/L POC BUN (7-18) mg/dl BUN 56 H (7-18) mg/dl Creatinine 2.58 H (0.6-1.2) mg/dl POC Creatinine (0.6-1.3) mg/dl Est Cr Clr Drug Dosing 23.0 ml/min Est GFR ( Amer) 22.1 Est GFR (Non-Af Amer) 19.0 BUN/Creatinine Ratio 21.9 H (10-20) Glucose 480 H* (70-99) mg/dl POC Glucose 510 H* (70-99) mg/dl POC Glucose (other) (70-99) mg/dl Calcium 9.2 (8.5-10.1) mg/dl POC Ioniz Calcium Trixie (1.12-1.32) mmol/l Total Bilirubin 0.5 (0.2-1) mg/dl AST 17 (15-37) U/L ALT 11 L (12-78) U/L Alkaline Phosphatase 175 H (45-117) U/L Troponin I < 0.015 (0-0.045) ng/ml Total Protein 8.3 H (6.4-8.2) gm/dl Albumin 2.3 L (3.4-5.0) gm/dl Globulin 6.0 H (2.5-4.0) gm/dl Albumin/Globulin Ratio 0.4 L (0.9-2) Lipase 127 (73-393) U/L Beta-Hydroxybutyric Acd (0.2-2.81) mg/dl Urine Color Urine Appearance (Clear) Urine pH (4.5-7.5) Ur Specific [place] (1.000-1.030) Urine Protein (Negative) Urine Glucose (UA) (Negative) Urine Ketones (Negative) Urine Blood (Negative) Urine Nitrite (Negative) Urine Bilirubin (Negative) Urine Urobilinogen (Negative) Ur Leukocyte Esterase (Negative) Urine WBC (Auto) (0-5) /hpf Urine RBC (Auto) (0-4) /hpf U Hyaline Cast (Auto) (0-5) /lpf U Epithel Cells (Auto) (0-5) /lpf Urine Bacteria (Auto) (Negative) Urine Yeast COVID-19 Eval Order SARS-CoV-2, RNA, NAAT (NEGATIVE) 11/20/20 11/20/20 11/20/20 Range/Units 16:19 16:20 16:20 WBC (4.8-10.8) K/uL RBC (4.2-5.4) M/uL Hgb (12.0-16.0) g/dL POC Hgb (12.0-16.0) g/dl Hct (37-47) % POC Hct (37-47) % MCV (80-100) fL MCH (25-34) pg MCHC (32-36) g/dL RDW Std Deviation (36.4-46.3) fL RDW Coeff of Jam (11.5-14.5) % Plt Count (130-400) K/uL MPV (7.4-10.4) fL Immature Gran % (Auto) % Neut % (Auto) % Lymph % (Auto) % Ross % (Auto) % Eos % (Auto) % Baso % (Auto) % Neut # (Auto) (1.4-6.5) K/uL Lymph # (Auto) (1.2-3.4) K/uL Ross # (Auto) (0.11-0.59) K/uL Eos # (Auto) (0-0.5) K/uL Baso # (Auto) (0-0.2) K/uL Immature Gran # (Auto) (0.00-0.02) K/uL VBG pH 7.38 (7.36-7.41) VBG pCO2 44 (38-50) mmHg VBG pO2 27 mmHg VBG HCO3 25 mmol/L VBG O2 Saturation < 60.0 % VBG Base Excess 0 mEq/L Barometric Pressure 724.9 mm/Hg POC Sodium (135-144) mmol/L Sodium (136-145) mmol/L POC Potassium (3.3-5.0) mmol/L Potassium (3.5-5.1) mmol/L POC Chloride (101-112) mmol/L Chloride (98-107) mmol/L Carbon Dioxide (21-32) mmol/L POC Total CO2 (24-31) mmol/L Anion Gap (3-11) POC Anion Gap (16-25) mmol/L POC BUN (7-18) mg/dl BUN (7-18) mg/dl Creatinine (0.6-1.2) mg/dl POC Creatinine (0.6-1.3) mg/dl Est Cr Clr Drug Dosing ml/min Est GFR ( Amer) Est GFR (Non-Af Amer) BUN/Creatinine Ratio (10-20) Glucose (70-99) mg/dl POC Glucose (70-99) mg/dl POC Glucose (other) (70-99) mg/dl Calcium (8.5-10.1) mg/dl POC Ioniz Calcium Trixie (1.12-1.32) mmol/l Total Bilirubin (0.2-1) mg/dl AST (15-37) U/L ALT (12-78) U/L Alkaline Phosphatase (45-117) U/L Troponin I (0-0.045) ng/ml Total Protein (6.4-8.2) gm/dl Albumin (3.4-5.0) gm/dl Globulin (2.5-4.0) gm/dl Albumin/Globulin Ratio (0.9-2) Lipase (73-393) U/L Beta-Hydroxybutyric Acd (0.2-2.81) mg/dl Urine Color Urine Appearance (Clear) Urine pH (4.5-7.5) Ur Specific [place] (1.000-1.030) Urine Protein (Negative) Urine Glucose (UA) (Negative) Urine Ketones (Negative) Urine Blood (Negative) Urine Nitrite (Negative) Urine Bilirubin (Negative) Urine Urobilinogen (Negative) Ur Leukocyte Esterase (Negative) Urine WBC (Auto) (0-5) /hpf Urine RBC (Auto) (0-4) /hpf U Hyaline Cast (Auto) (0-5) /lpf U Epithel Cells (Auto) (0-5) /lpf Urine Bacteria (Auto) (Negative) Urine Yeast COVID-19 Eval Order Covid19 IDNow [facility] SARS-CoV-2, RNA, NAAT NEGATIVE (NEGATIVE) 11/20/20 11/20/20 11/20/20 Range/Units 16:21 17:20 17:28 WBC (4.8-10.8) K/uL RBC (4.2-5.4) M/uL Hgb (12.0-16.0) g/dL POC Hgb 13.6 (12.0-16.0) g/dl Hct (37-47) % POC Hct 40 (37-47) % MCV (80-100) fL MCH (25-34) pg MCHC (32-36) g/dL RDW Std Deviation (36.4-46.3) fL RDW Coeff of Jam (11.5-14.5) % Plt Count (130-400) K/uL MPV (7.4-10.4) fL Immature Gran % (Auto) % Neut % (Auto) % Lymph % (Auto) % Ross % (Auto) % Eos % (Auto) % Baso % (Auto) % Neut # (Auto) (1.4-6.5) K/uL Lymph # (Auto) (1.2-3.4) K/uL Ross # (Auto) (0.11-0.59) K/uL Eos # (Auto) (0-0.5) K/uL Baso # (Auto) (0-0.2) K/uL Immature Gran # (Auto) (0.00-0.02) K/uL VBG pH (7.36-7.41) VBG pCO2 (38-50) mmHg VBG pO2 mmHg VBG HCO3 mmol/L VBG O2 Saturation % VBG Base Excess mEq/L Barometric Pressure mm/Hg POC Sodium 120 L (135-144) mmol/L Sodium (136-145) mmol/L POC Potassium 3.9 (3.3-5.0) mmol/L Potassium (3.5-5.1) mmol/L POC Chloride 86 L (101-112) mmol/L Chloride (98-107) mmol/L Carbon Dioxide (21-32) mmol/L POC Total CO2 26 (24-31) mmol/L Anion Gap (3-11) POC Anion Gap 13.0 L (16-25) mmol/L POC BUN 60 H (7-18) mg/dl BUN (7-18) mg/dl Creatinine (0.6-1.2) mg/dl POC Creatinine 2.5 H (0.6-1.3) mg/dl Est Cr Clr Drug Dosing ml/min Est GFR ( Amer) Est GFR (Non-Af Amer) BUN/Creatinine Ratio (10-20) Glucose (70-99) mg/dl POC Glucose 452 H* (70-99) mg/dl POC Glucose (other) 501 H* (70-99) mg/dl Calcium (8.5-10.1) mg/dl POC Ioniz Calcium Trixie 1.02 L (1.12-1.32) mmol/l Total Bilirubin (0.2-1) mg/dl AST (15-37) U/L ALT (12-78) U/L Alkaline Phosphatase (45-117) U/L Troponin I (0-0.045) ng/ml Total Protein (6.4-8.2) gm/dl Albumin (3.4-5.0) gm/dl Globulin (2.5-4.0) gm/dl Albumin/Globulin Ratio (0.9-2) Lipase (73-393) U/L Beta-Hydroxybutyric Acd (0.2-2.81) mg/dl Urine Color Yellow Urine Appearance Turbid A (Clear) Urine pH 5.5 (4.5-7.5) Ur Specific [place] 1.022 (1.000-1.030) Urine Protein 3+ H (Negative) Urine Glucose (UA) 3+ H (Negative) Urine Ketones 1+ H (Negative) Urine Blood 3+ H (Negative) Urine Nitrite Positive A (Negative) Urine Bilirubin Negative (Negative) Urine Urobilinogen Negative (Negative) Ur Leukocyte Esterase 2+ H (Negative) Urine WBC (Auto) >30 H (0-5) /hpf Urine RBC (Auto) 10-30 H (0-4) /hpf U Hyaline Cast (Auto) 1-5 (0-5) /lpf U Epithel Cells (Auto) >30 H (0-5) /lpf Urine Bacteria (Auto) 4+ H (Negative) Urine Yeast Not Reportable COVID-19 Eval Order SARS-CoV-2, RNA, NAAT (NEGATIVE) BMP 11/20/20 15:53 Sodium 121 L Potassium 3.8 Chloride 84 L Carbon Dioxide 24 BUN 56 H Creatinine 2.58 H Glucose 480 H* Calcium 9.2 Cardiac Enzymes 11/20/20 Range/Units 15:53 Troponin I < 0.015 (0-0.045) ng/ml Liver Function 11/20/20 Range/Units 15:53 Total Bilirubin 0.5 (0.2-1) mg/dl AST 17 (15-37) U/L ALT 11 L (12-78) U/L Alkaline Phosphatase 175 H (45-117) U/L Albumin 2.3 L (3.4-5.0) gm/dl Urine 11/20/20 Range/Units 17:20 Urine Color Yellow Urine Appearance Turbid A (Clear) Urine pH 5.5 (4.5-7.5) Ur Specific [place] 1.022 (1.000-1.030) Urine Protein 3+ H (Negative) Urine Glucose (UA) 3+ H (Negative) Diagnostic Findings CT ABD/PELVIS: IMPRESSION: 1. Asymmetric left perinephric and periureteral infiltration with possible urothelial thickening. The findings favor an infectious process such as left pyelonephritis/pyelitis. A recently passed calculus could appear similar although is considered less likely. 2. No bowel obstruction. 3. Left colon diverticulosis without evidence for acute diverticulitis. CT HEAD: IMPRESSION: 1. There is no hemorrhage, mass effect, or evidence of acute territorial ischemia by CT criteria. 2. Chronic and postoperative changes as above. CXR: IMPRESSION: No acute cardiopulmonary abnormality. LEFT SHOULDER XRAY: IMPRESSION: 1. No acute bony abnormality is identified. 2. Calcific tendinopathy. Code Status & VTE Plan VTE Prophylaxis Plan VTE Prophylaxis will be ordered: Yes Supervising Physician Co-Signing Physician Notes I have seen and examined the patient and have discussed the case with the provider above. I agree with the assessment and plan as stated. The patient is a 65 yo diabetic female who presents with sepsis and weakness secondary to acute left sided pyelonephritis. Symptoms began for her around Wednesday (approximately 4 days ago) including vomiting, confusion and weakness. She is having some difficulty recalling details of events and timelines for me tonight stating that she has been somewhat confused over the past couple of days. She did report "peeing blood" at one point. She reported having her first COVID vaccine today which was brought to her living community by [facility] pharmacists, and then states she went back to her apartment to rest afterward. At some point she felt so weak she fell onto her floor and couldn't get up again. She reports chills that were ongoing prior to the vaccine and she has them now. This doesn't appear to be a vaccine reaction. She currently reports feeling better since admission after IVF hydration and starting antibiotics. Insulin has brought her blood sugar more into the normal range. She is not acidotic and doesn't have DKA. She appears to have stress hyperglycemia from critical illness with diabetic medication noncompliance also contributing as she has been vomiting at home and not able to keep anything down for a couple of days. She should be able to transition quickly to basal bolus insulin therapy and off the insulin drip overnight, and hopefully start eating again in the morning. Exam reveals a slightly confused but oriented patient who is obese and in NAD. She is cooperative with exam. Skin is warm and dry. Cardiac exam reveals a regular rhythm with slightly tachycardic rate and no murmurs, gallops or rubs. She has no edema and extremities are warm and well perfused. Lungs are clear to auscultation throughout without increased respiratory effort. Abdomen is soft , protuberant, nondistended and nontender. There is L CVA tenderness present. All imaging reviewed and clinical picture consistent with sepsis 2/2 acute pyelonephritis. Agree with plan to continue IVF hydration in setting of persistent lactic acidosis with repeat lactate pending, continue broad spectrum antibiotics pending culture results and clinical improvement. Add CK to rule out nontraumatic rhabdo. Although we are giving IVF, we may increase the rate if this is elevated. Hyponatremia is likely related to dehydration from sepsis and poor PO intake. Goal will be to hydrate and resuscitate her without overcorrecting sodium beyond a corrected Na of 135. Cont to monitor closely in PCU. Discussed the case with the identity management consultant. Heparin added for DVT prophylaxis. DO Lorenzo (1) Sepsis Sepsis acute organ dysfunction status: unspecified Sepsis type: sepsis due to unspecified organism Qualified Code(s): A41.9 - Sepsis, unspecified organism
[2020-11-20] MEDS ORDERED: hydrOXYzine HCl 10 MG TAB PO PRN (20:35)
[2020-11-20] MEDS ORDERED: HHS GOAL RANGE 250-350 mg/dl ONE (20:35)
[2020-11-20] MEDS ORDERED: ONDANSETRON INJ 2 MG/ML 2 ML VIAL IV PRN (20:35)
[2020-11-20] MEDS ORDERED: PHARMACY GLYCEMIC MGMT CONSULT PRN (20:58)
[2020-11-20] MEDS ORDERED: INSULIN ASPART 100 UNITS/ML 3 ML PEN SC SCH ×2 (21:00)
[2020-11-20] MEDS: NSS + 20MEQ KCL 20 MEQ/1,000 ML BAG IV SCH (21:17)
[2020-11-20] MEDS ORDERED: DEXTROSE 50% 50 ML SYRINGE IV PRN (23:00)
[2020-11-20] MEDS ORDERED: GLUCAGON FOR INJ 1 MG VIAL SQ PRN (23:00)
[2020-11-20] MEDS ORDERED: GLUCOSE 40% GEL 15 GM TUBE PO PRN (23:00)
[2020-11-20] MEDS ORDERED: CARBOHYDRATES FOR HYPOGLYCEMIA PO PRN (23:00)
[2020-11-20] MEDS ORDERED: GLUCOSE 10 TABS/TUBE PO PRN (23:00)
[2020-11-20] MEDS: HEPARIN SOD 5,000 UNIT/0.5 ML VIAL SQ SCH (23:17)
[2020-11-20] MEDS: SIMVASTATIN 40 MG TAB PO SCH (23:17)
[2020-11-20 23:23] LABS: BUN Creatinine Ratio 23.9 (10-20); Calcium 8.4 mg/dl (8.5-10.1); Creatinine Clr Calc Pharmacy 28.2 ml/min; Est GFR (Non-African American) 24.2; Potassium 3.8 mmol/L (3.5-5.1)
[2020-11-21 02:54] LABS: Hematocrit (blood only) 33.2 % (37-47); Hemoglobin 11.4 g/dL (12.0-16.0); Mean Corpuscular Hemoglobin 27.1 pg (25-34); Mean Corpuscular Hgb Conc 34.3 g/dL (32-36); Mean Platelet Volume 11.2 fL (7.4-10.4); Nucleated RBC # (auto) 0.03 K/uL (0-0); Nucleated RBC % (auto) 0.2 %; Platelet Count 216 K/uL (130-400); RDW Coefficient of Variation 13.9 % (11.5-14.5); RDW Standard Deviation 39.7 fL (36.4-46.3); White Blood Count 18.31 K/uL (4.8-10.8)
[2020-11-21 03:12] LABS: BUN Creatinine Ratio 25.1 (10-20); Calcium 8.5 mg/dl (8.5-10.1); Creatinine Clr Calc Pharmacy 28.1 ml/min; Est GFR (African American) 27.8; Potassium 3.3 mmol/L (3.5-5.1)
[2020-11-21 05:06] LABS: Estimated Average Glucose 258 mg/dl; Hemoglobin A1C 10.6 % (4.5-5.6)
[2020-11-21] MEDS: NSS + 20MEQ KCL 20 MEQ/1,000 ML BAG IV SCH (06:14)
[2020-11-21] MEDS: HEPARIN SOD 5,000 UNIT/0.5 ML VIAL SQ SCH ×3 (06:20→21:24)
[2020-11-21] MEDS ORDERED: INSULIN GLARGINE SOLOSTAR 100 UNITS/ML 3 ML PEN SC STA (07:22)
[2020-11-21] MEDS: INSULIN ASPART 100 UNITS/ML 3 ML PEN SC SCH ×4 (07:50→21:24)
[2020-11-21] MEDS: CLOPIDOGREL BISULFATE 75 MG TAB PO SCH (07:53)
--- NOTE | 2020-11-21 08:08 | Hospitalist Progress Note ---
Date of Service November 21, 2020 Assessment & Plan (1) Sepsis: (2) Pyelonephritis: Gram negative bacteremia Pt is 65y/o F with PMH DM II, HTN, HLD, CVA, anxiety, depression presented to ER with C/O dysuria, hematuria x 4-5 days and nausea & vomiting x 3 days with left flank pain. Afebrile, tachycardic in ER 107, WBC: 18.9, UA consistent with infection CT abdomen/pelvis: 1. Asymmetric left perinephric and periureteral infiltration with possible urothelial thickening. The findings favor an infectious process such as left pyelonephritis/pyelitis. A recently passed calculus could appear similar although is considered less likely. 2. No bowel obstruction. 3. Left colon diverticulosis without evidence for acute diverticulitis. Blood culture (11/20/2020) x2 - positive for Gram negat. bacilli Urine culture - positive for E. coli In ER given cefepime, 2L NSS Continue cefepime Clear liquid diet for now IVF Repeat blood cultx AM labs (3) Stress hyperglycemia: Glucose 510. Normal pH. Anion gap:13, + ketones urine, beta hydroxybutyric acid unavailable secondary to hemolysis Patient not taking oral diabetes medicines for several days secondary to vomiting In ER received insulin and IV insulin drip started. Potassium total 20 MEQ IV, 2 L NSS Continued with IV insulin, glycemic pharmacist on board to assist in glycemic management last A1c 7.8 in 06/2019, current A1c above 10%, health educator consulted Hold home oral meds (4) Diabetes mellitus, type II: (5) SAURAV (acute kidney injury): BUN: 56, creatinine: 2.5, BUN/creatinine ratio: 22. Baseline creatinine 0.9 with GFR>60 Hold oral diabetes medication Hold lisinopril/HCTZ IVF Monitor renal functions, avoid other nephrotoxic agents and possible If no improvement consider nephrology consult (6) Fall: Generalized weakness Patient with reported generalized weakness and unsteadiness. Reports fall. Likely secondary to underlying infection, hyperglycemia Left shoulder x-ray no acute fracture. No acute findings on CT head PT OT eval (7) Hyponatremia: Pseudohyponatremia in the setting of elevated blood glucose Na: 120, glucose of 501, Corrected Na: 128 Received 2L NSS in ER Na this AM (11/21/2020) 128 Monitor BMP (8) HTN (hypertension): In ER initial was 124/101 down to 133/88 Hold lisinopril/HCTZ secondary to SAURAV Monitor BP Current BP 112/80 (9) CVA (cerebral vascular accident): Continue Plavix, simvastatin (10) Anxiety and depression: Hold bupropion for now secondary to SAURAV. Decrease dose Vistaril secondary to SAURAV DVT Prophylaxis -SCDs DNR/DNI as per discussion with pt Follows with Dr Pimentel for routine care Admission and Anticipated Discharge Date Admission Date: November 20, 2020 Subjective Pt seen in follow up of gram negative bacteremia, pyelonephritis, uncontrolled DM type 2, hyponatremia Pt feels very fatigued Left flank pain improved/ resolved, nausea/ vom. improved/ resolved as well Currently on IV insulin Review of Systems Review of Systems: All systems reviewed & are unremarkable except as noted in HPI & below Constitutional: + chills and + fatigue; no fever Respiratory: no cough and no dyspnea Cardiovascular: no chest pain and no palpitations Gastrointestinal: + nausea (resolved) and + vomiting (resolved); no abdominal pain Genitourinary: + flank pain (resolved/improved) Physical Exam Physical Exam: General: obese female, +ill-appearing, fatigued Head: normocephalic, atraumatic Eyes: PERRL, EOM's intact, conjunctiva non-injected, anicteric ENT: normal inspection external ears, nose, mucous membranes dry Neck: supple, trachea midline, non-tender to palpation Lungs: clear, no respiratory distress, no wheezing/rhonchi/rales CV: RRR no murmur, no pretibial edema Abd: normal BS, soft, - Left CVA (improved/resolved) Ext: no calf tenderness; left anterior shoulder with tenderness to palpation with active ROM; distal pulses palpable Neuro: A&O x 3, no focal deficits noted, somewhat flat affect Skin: warm, dry Results & Data Results & Data ([facility]) Vital Signs (Past 12 Hours) Vital Signs Temp Pulse Pulse Resp BP Pulse Ox 11/21/20 07:59 36.8 C 98 H 22 134/90 96 11/21/20 07:12 101 H 11/21/20 04:00 37.1 C 96 H 19 126/83 93 11/20/20 23:31 37.1 C 107 H 20 134/84 94 11/20/20 20:31 37.4 C 103 H 18 136/83 95 Laboratory Results 11/21/20 11/21/20 11/21/20 Range/Units 07:01 06:09 03:59 WBC (4.8-10.8) K/uL RBC (4.2-5.4) M/uL Hgb (12.0-16.0) g/dL POC Hgb (12.0-16.0) g/dl Hct (37-47) % POC Hct (37-47) % MCV (80-100) fL MCH (25-34) pg MCHC (32-36) g/dL RDW Std Deviation (36.4-46.3) fL RDW Coeff of Jam (11.5-14.5) % Plt Count (130-400) K/uL MPV (7.4-10.4) fL Immature Gran % (Auto) % Neut % (Auto) % Lymph % (Auto) % Treasure % (Auto) % Eos % (Auto) % Baso % (Auto) % Neut # (Auto) (1.4-6.5) K/uL Lymph # (Auto) (1.2-3.4) K/uL Treasure # (Auto) (0.11-0.59) K/uL Eos # (Auto) (0-0.5) K/uL Baso # (Auto) (0-0.2) K/uL Immature Gran # (Auto) (0.00-0.02) K/uL Absolute Nucleated RBC (0-0) K/uL Nucleated RBC % (auto) % VBG pH (7.36-7.41) VBG pCO2 (38-50) mmHg VBG pO2 mmHg VBG HCO3 mmol/L VBG O2 Saturation % VBG Base Excess mEq/L Barometric Pressure mm/Hg POC Sodium (135-144) mmol/L Sodium (136-145) mmol/L POC Potassium (3.3-5.0) mmol/L Potassium (3.5-5.1) mmol/L POC Chloride (101-112) mmol/L Chloride (98-107) mmol/L Carbon Dioxide (21-32) mmol/L POC Total CO2 (24-31) mmol/L Anion Gap (3-11) POC Anion Gap (16-25) mmol/L POC BUN (7-18) mg/dl BUN (7-18) mg/dl Creatinine (0.6-1.2) mg/dl POC Creatinine (0.6-1.3) mg/dl Est Cr Clr Drug Dosing ml/min Est GFR ( Amer) Est GFR (Non-Af Amer) BUN/Creatinine Ratio (10-20) Glucose (70-99) mg/dl POC Glucose 128 H 133 H 188 H (70-99) mg/dl POC Glucose (other) (70-99) mg/dl Estimat Average Glucose mg/dl Hemoglobin A1c (4.5-5.6) % Lactate (0.4-2.0) mmol/L Calcium (8.5-10.1) mg/dl POC Ioniz Calcium Trixie (1.12-1.32) mmol/l Phosphorus (2.5-4.9) mg/dl Magnesium (1.8-2.4) mg/dl Total Bilirubin (0.2-1) mg/dl AST (15-37) U/L ALT (12-78) U/L Alkaline Phosphatase (45-117) U/L Total Creatine Kinase (26-192) U/L Troponin I (0-0.045) ng/ml Total Protein (6.4-8.2) gm/dl Albumin (3.4-5.0) gm/dl Globulin (2.5-4.0) gm/dl Albumin/Globulin Ratio (0.9-2) Lipase (73-393) U/L Beta-Hydroxybutyric Acd (0.2-2.81) mg/dl Urine Color Urine Appearance (Clear) Urine pH (4.5-7.5) Ur Specific [place] (1.000-1.030) Urine Protein (Negative) Urine Glucose (UA) (Negative) Urine Ketones (Negative) Urine Blood (Negative) Urine Nitrite (Negative) Urine Bilirubin (Negative) Urine Urobilinogen (Negative) Ur Leukocyte Esterase (Negative) Urine WBC (Auto) (0-5) /hpf Urine RBC (Auto) (0-4) /hpf U Hyaline Cast (Auto) (0-5) /lpf U Epithel Cells (Auto) (0-5) /lpf Urine Bacteria (Auto) (Negative) Urine Yeast COVID-19 Eval Order SARS-CoV-2, RNA, NAAT (NEGATIVE) 11/21/20 11/21/20 11/21/20 Range/Units 02:30 02:30 02:30 WBC (4.8-10.8) K/uL RBC (4.2-5.4) M/uL Hgb (12.0-16.0) g/dL POC Hgb (12.0-16.0) g/dl Hct (37-47) % POC Hct (37-47) % MCV (80-100) fL MCH (25-34) pg MCHC (32-36) g/dL RDW Std Deviation (36.4-46.3) fL RDW Coeff of Jam (11.5-14.5) % Plt Count (130-400) K/uL MPV (7.4-10.4) fL Immature Gran % (Auto) % Neut % (Auto) % Lymph % (Auto) % Treasure % (Auto) % Eos % (Auto) % Baso % (Auto) % Neut # (Auto) (1.4-6.5) K/uL Lymph # (Auto) (1.2-3.4) K/uL Treasure # (Auto) (0.11-0.59) K/uL Eos # (Auto) (0-0.5) K/uL Baso # (Auto) (0-0.2) K/uL Immature Gran # (Auto) (0.00-0.02) K/uL Absolute Nucleated RBC (0-0) K/uL Nucleated RBC % (auto) % VBG pH (7.36-7.41) VBG pCO2 (38-50) mmHg VBG pO2 mmHg VBG HCO3 mmol/L VBG O2 Saturation % VBG Base Excess mEq/L Barometric Pressure mm/Hg POC Sodium (135-144) mmol/L Sodium 128 L (136-145) mmol/L POC Potassium (3.3-5.0) mmol/L Potassium 3.3 L (3.5-5.1) mmol/L POC Chloride (101-112) mmol/L Chloride 95 L (98-107) mmol/L Carbon Dioxide 24 (21-32) mmol/L POC Total CO2 (24-31) mmol/L Anion Gap 9.0 (3-11) POC Anion Gap (16-25) mmol/L POC BUN (7-18) mg/dl BUN 54 H (7-18) mg/dl Creatinine 2.13 H (0.6-1.2) mg/dl POC Creatinine (0.6-1.3) mg/dl Est Cr Clr Drug Dosing 28.1 ml/min Est GFR ( Amer) 27.8 Est GFR (Non-Af Amer) 24.0 BUN/Creatinine Ratio 25.1 H (10-20) Glucose 228 H (70-99) mg/dl POC Glucose (70-99) mg/dl POC Glucose (other) (70-99) mg/dl Estimat Average Glucose 258 mg/dl Hemoglobin A1c 10.6 H (4.5-5.6) % Lactate 1.5 (0.4-2.0) mmol/L Calcium 8.5 (8.5-10.1) mg/dl POC Ioniz Calcium Trixie (1.12-1.32) mmol/l Phosphorus (2.5-4.9) mg/dl Magnesium (1.8-2.4) mg/dl Total Bilirubin (0.2-1) mg/dl AST (15-37) U/L ALT (12-78) U/L Alkaline Phosphatase (45-117) U/L Total Creatine Kinase (26-192) U/L Troponin I (0-0.045) ng/ml Total Protein (6.4-8.2) gm/dl Albumin (3.4-5.0) gm/dl Globulin (2.5-4.0) gm/dl Albumin/Globulin Ratio (0.9-2) Lipase (73-393) U/L Beta-Hydroxybutyric Acd (0.2-2.81) mg/dl Urine Color Urine Appearance (Clear) Urine pH (4.5-7.5) Ur Specific [place] (1.000-1.030) Urine Protein (Negative) Urine Glucose (UA) (Negative) Urine Ketones (Negative) Urine Blood (Negative) Urine Nitrite (Negative) Urine Bilirubin (Negative) Urine Urobilinogen (Negative) Ur Leukocyte Esterase (Negative) Urine WBC (Auto) (0-5) /hpf Urine RBC (Auto) (0-4) /hpf U Hyaline Cast (Auto) (0-5) /lpf U Epithel Cells (Auto) (0-5) /lpf Urine Bacteria (Auto) (Negative) Urine Yeast COVID-19 Eval Order SARS-CoV-2, RNA, NAAT (NEGATIVE) 11/21/20 11/21/20 11/21/20 Range/Units 02:30 02:01 00:58 WBC 18.31 H (4.8-10.8) K/uL RBC 4.20 (4.2-5.4) M/uL Hgb 11.4 L (12.0-16.0) g/dL POC Hgb (12.0-16.0) g/dl Hct 33.2 L (37-47) % POC Hct (37-47) % MCV 79.0 L (80-100) fL MCH 27.1 (25-34) pg MCHC 34.3 (32-36) g/dL RDW Std Deviation 39.7 (36.4-46.3) fL RDW Coeff of Jam 13.9 (11.5-14.5) % Plt Count 216 (130-400) K/uL MPV 11.2 H (7.4-10.4) fL Immature Gran % (Auto) % Neut % (Auto) % Lymph % (Auto) % Treasure % (Auto) % Eos % (Auto) % Baso % (Auto) % Neut # (Auto) (1.4-6.5) K/uL Lymph # (Auto) (1.2-3.4) K/uL Treasure # (Auto) (0.11-0.59) K/uL Eos # (Auto) (0-0.5) K/uL Baso # (Auto) (0-0.2) K/uL Immature Gran # (Auto) (0.00-0.02) K/uL Absolute Nucleated RBC 0.03 H (0-0) K/uL Nucleated RBC % (auto) 0.2 % VBG pH (7.36-7.41) VBG pCO2 (38-50) mmHg VBG pO2 mmHg VBG HCO3 mmol/L VBG O2 Saturation % VBG Base Excess mEq/L Barometric Pressure mm/Hg POC Sodium (135-144) mmol/L Sodium (136-145) mmol/L POC Potassium (3.3-5.0) mmol/L Potassium (3.5-5.1) mmol/L POC Chloride (101-112) mmol/L Chloride (98-107) mmol/L Carbon Dioxide (21-32) mmol/L POC Total CO2 (24-31) mmol/L Anion Gap (3-11) POC Anion Gap (16-25) mmol/L POC BUN (7-18) mg/dl BUN (7-18) mg/dl Creatinine (0.6-1.2) mg/dl POC Creatinine (0.6-1.3) mg/dl Est Cr Clr Drug Dosing ml/min Est GFR ( Amer) Est GFR (Non-Af Amer) BUN/Creatinine Ratio (10-20) Glucose (70-99) mg/dl POC Glucose 259 H 273 H (70-99) mg/dl POC Glucose (other) (70-99) mg/dl Estimat Average Glucose mg/dl Hemoglobin A1c (4.5-5.6) % Lactate (0.4-2.0) mmol/L Calcium (8.5-10.1) mg/dl POC Ioniz Calcium Trixie (1.12-1.32) mmol/l Phosphorus (2.5-4.9) mg/dl Magnesium (1.8-2.4) mg/dl Total Bilirubin (0.2-1) mg/dl AST (15-37) U/L ALT (12-78) U/L Alkaline Phosphatase (45-117) U/L Total Creatine Kinase (26-192) U/L Troponin I (0-0.045) ng/ml Total Protein (6.4-8.2) gm/dl Albumin (3.4-5.0) gm/dl Globulin (2.5-4.0) gm/dl Albumin/Globulin Ratio (0.9-2) Lipase (73-393) U/L Beta-Hydroxybutyric Acd (0.2-2.81) mg/dl Urine Color Urine Appearance (Clear) Urine pH (4.5-7.5) Ur Specific [place] (1.000-1.030) Urine Protein (Negative) Urine Glucose (UA) (Negative) Urine Ketones (Negative) Urine Blood (Negative) Urine Nitrite (Negative) Urine Bilirubin (Negative) Urine Urobilinogen (Negative) Ur Leukocyte Esterase (Negative) Urine WBC (Auto) (0-5) /hpf Urine RBC (Auto) (0-4) /hpf U Hyaline Cast (Auto) (0-5) /lpf U Epithel Cells (Auto) (0-5) /lpf Urine Bacteria (Auto) (Negative) Urine Yeast COVID-19 Eval Order SARS-CoV-2, RNA, NAAT (NEGATIVE) 11/20/20 11/20/20 11/20/20 Range/Units 23:59 23:06 22:31 WBC (4.8-10.8) K/uL RBC (4.2-5.4) M/uL Hgb (12.0-16.0) g/dL POC Hgb (12.0-16.0) g/dl Hct (37-47) % POC Hct (37-47) % MCV (80-100) fL MCH (25-34) pg MCHC (32-36) g/dL RDW Std Deviation (36.4-46.3) fL RDW Coeff of Jam (11.5-14.5) % Plt Count (130-400) K/uL MPV (7.4-10.4) fL Immature Gran % (Auto) % Neut % (Auto) % Lymph % (Auto) % Treasure % (Auto) % Eos % (Auto) % Baso % (Auto) % Neut # (Auto) (1.4-6.5) K/uL Lymph # (Auto) (1.2-3.4) K/uL [place] # (Auto) (0.11-0.59) K/uL Eos # (Auto) (0-0.5) K/uL Baso # (Auto) (0-0.2) K/uL Immature Gran # (Auto) (0.00-0.02) K/uL Absolute Nucleated RBC (0-0) K/uL Nucleated RBC % (auto) % VBG pH (7.36-7.41) VBG pCO2 (38-50) mmHg VBG pO2 mmHg VBG HCO3 mmol/L VBG O2 Saturation % VBG Base Excess mEq/L Barometric Pressure mm/Hg POC Sodium (135-144) mmol/L Sodium 127 L (136-145) mmol/L POC Potassium (3.3-5.0) mmol/L Potassium 3.8 (3.5-5.1) mmol/L POC Chloride (101-112) mmol/L Chloride 92 L (98-107) mmol/L Carbon Dioxide 25 (21-32) mmol/L POC Total CO2 (24-31) mmol/L Anion Gap 10.0 (3-11) POC Anion Gap (16-25) mmol/L POC BUN (7-18) mg/dl BUN 51 H (7-18) mg/dl Creatinine 2.12 H D (0.6-1.2) mg/dl POC Creatinine (0.6-1.3) mg/dl Est Cr Clr Drug Dosing 28.2 ml/min Est GFR ( Amer) 28.0 Est GFR (Non-Af Amer) 24.2 BUN/Creatinine Ratio 23.9 H (10-20) Glucose 289 H (70-99) mg/dl POC Glucose 319 H* 313 H* (70-99) mg/dl POC Glucose (other) (70-99) mg/dl Estimat Average Glucose mg/dl Hemoglobin A1c (4.5-5.6) % Lactate (0.4-2.0) mmol/L Calcium 8.4 L (8.5-10.1) mg/dl POC Ioniz Calcium Trixie (1.12-1.32) mmol/l Phosphorus (2.5-4.9) mg/dl Magnesium (1.8-2.4) mg/dl Total Bilirubin (0.2-1) mg/dl AST (15-37) U/L ALT (12-78) U/L Alkaline Phosphatase (45-117) U/L Total Creatine Kinase (26-192) U/L Troponin I (0-0.045) ng/ml Total Protein (6.4-8.2) gm/dl Albumin (3.4-5.0) gm/dl Globulin (2.5-4.0) gm/dl Albumin/Globulin Ratio (0.9-2) Lipase (73-393) U/L Beta-Hydroxybutyric Acd (0.2-2.81) mg/dl Urine Color Urine Appearance (Clear) Urine pH (4.5-7.5) Ur Specific [place] (1.000-1.030) Urine Protein (Negative) Urine Glucose (UA) (Negative) Urine Ketones (Negative) Urine Blood (Negative) Urine Nitrite (Negative) Urine Bilirubin (Negative) Urine Urobilinogen (Negative) Ur Leukocyte Esterase (Negative) Urine WBC (Auto) (0-5) /hpf Urine RBC (Auto) (0-4) /hpf U Hyaline Cast (Auto) (0-5) /lpf U Epithel Cells (Auto) (0-5) /lpf Urine Bacteria (Auto) (Negative) Urine Yeast COVID-19 Eval Order SARS-CoV-2, RNA, NAAT (NEGATIVE) 11/20/20 11/20/20 11/20/20 Range/Units 21:32 21:04 20:30 WBC (4.8-10.8) K/uL RBC (4.2-5.4) M/uL Hgb (12.0-16.0) g/dL POC Hgb (12.0-16.0) g/dl Hct (37-47) % POC Hct (37-47) % MCV (80-100) fL MCH (25-34) pg MCHC (32-36) g/dL RDW Std Deviation (36.4-46.3) fL RDW Coeff of Jam (11.5-14.5) % Plt Count (130-400) K/uL MPV (7.4-10.4) fL Immature Gran % (Auto) % Neut % (Auto) % Lymph % (Auto) % Treasure % (Auto) % Eos % (Auto) % Baso % (Auto) % Neut # (Auto) (1.4-6.5) K/uL Lymph # (Auto) (1.2-3.4) K/uL [place] # (Auto) (0.11-0.59) K/uL Eos # (Auto) (0-0.5) K/uL Baso # (Auto) (0-0.2) K/uL Immature Gran # (Auto) (0.00-0.02) K/uL Absolute Nucleated RBC (0-0) K/uL Nucleated RBC % (auto) % VBG pH (7.36-7.41) VBG pCO2 (38-50) mmHg VBG pO2 mmHg VBG HCO3 mmol/L VBG O2 Saturation % VBG Base Excess mEq/L Barometric Pressure mm/Hg POC Sodium (135-144) mmol/L Sodium (136-145) mmol/L POC Potassium (3.3-5.0) mmol/L Potassium (3.5-5.1) mmol/L POC Chloride (101-112) mmol/L Chloride (98-107) mmol/L Carbon Dioxide (21-32) mmol/L POC Total CO2 (24-31) mmol/L Anion Gap (3-11) POC Anion Gap (16-25) mmol/L POC BUN (7-18) mg/dl BUN (7-18) mg/dl Creatinine (0.6-1.2) mg/dl POC Creatinine (0.6-1.3) mg/dl Est Cr Clr Drug Dosing ml/min Est GFR ( Amer) Est GFR (Non-Af Amer) BUN/Creatinine Ratio (10-20) Glucose (70-99) mg/dl POC Glucose 286 H 382 H* (70-99) mg/dl POC Glucose (other) (70-99) mg/dl Estimat Average Glucose mg/dl Hemoglobin A1c (4.5-5.6) % Lactate 2.6 H* (0.4-2.0) mmol/L Calcium (8.5-10.1) mg/dl POC Ioniz Calcium Trixie (1.12-1.32) mmol/l Phosphorus (2.5-4.9) mg/dl Magnesium (1.8-2.4) mg/dl Total Bilirubin (0.2-1) mg/dl AST (15-37) U/L ALT (12-78) U/L Alkaline Phosphatase (45-117) U/L Total Creatine Kinase (26-192) U/L Troponin I (0-0.045) ng/ml Total Protein (6.4-8.2) gm/dl Albumin (3.4-5.0) gm/dl Globulin (2.5-4.0) gm/dl Albumin/Globulin Ratio (0.9-2) Lipase (73-393) U/L Beta-Hydroxybutyric Acd (0.2-2.81) mg/dl Urine Color Urine Appearance (Clear) Urine pH (4.5-7.5) Ur Specific [place] (1.000-1.030) Urine Protein (Negative) Urine Glucose (UA) (Negative) Urine Ketones (Negative) Urine Blood (Negative) Urine Nitrite (Negative) Urine Bilirubin (Negative) Urine Urobilinogen (Negative) Ur Leukocyte Esterase (Negative) Urine WBC (Auto) (0-5) /hpf Urine RBC (Auto) (0-4) /hpf U Hyaline Cast (Auto) (0-5) /lpf U Epithel Cells (Auto) (0-5) /lpf Urine Bacteria (Auto) (Negative) Urine Yeast COVID-19 Eval Order SARS-CoV-2, RNA, NAAT (NEGATIVE) 11/20/20 11/20/20 11/20/20 Range/Units 19:41 17:28 17:20 WBC (4.8-10.8) K/uL RBC (4.2-5.4) M/uL Hgb (12.0-16.0) g/dL POC Hgb (12.0-16.0) g/dl Hct (37-47) % POC Hct (37-47) % MCV (80-100) fL MCH (25-34) pg MCHC (32-36) g/dL RDW Std Deviation (36.4-46.3) fL RDW Coeff of Jam (11.5-14.5) % Plt Count (130-400) K/uL MPV (7.4-10.4) fL Immature Gran % (Auto) % Neut % (Auto) % Lymph % (Auto) % [place] % (Auto) % Eos % (Auto) % Baso % (Auto) % Neut # (Auto) (1.4-6.5) K/uL Lymph # (Auto) (1.2-3.4) K/uL [place] # (Auto) (0.11-0.59) K/uL Eos # (Auto) (0-0.5) K/uL Baso # (Auto) (0-0.2) K/uL Immature Gran # (Auto) (0.00-0.02) K/uL Absolute Nucleated RBC (0-0) K/uL Nucleated RBC % (auto) % VBG pH (7.36-7.41) VBG pCO2 (38-50) mmHg VBG pO2 mmHg VBG HCO3 mmol/L VBG O2 Saturation % VBG Base Excess mEq/L Barometric Pressure mm/Hg POC Sodium (135-144) mmol/L Sodium (136-145) mmol/L POC Potassium (3.3-5.0) mmol/L Potassium (3.5-5.1) mmol/L POC Chloride (101-112) mmol/L Chloride (98-107) mmol/L Carbon Dioxide (21-32) mmol/L POC Total CO2 (24-31) mmol/L Anion Gap (3-11) POC Anion Gap (16-25) mmol/L POC BUN (7-18) mg/dl BUN (7-18) mg/dl Creatinine (0.6-1.2) mg/dl POC Creatinine (0.6-1.3) mg/dl Est Cr Clr Drug Dosing ml/min Est GFR ( Amer) Est GFR (Non-Af Amer) BUN/Creatinine Ratio (10-20) Glucose (70-99) mg/dl POC Glucose 413 H* 452 H* (70-99) mg/dl POC Glucose (other) (70-99) mg/dl Estimat Average Glucose mg/dl Hemoglobin A1c (4.5-5.6) % Lactate (0.4-2.0) mmol/L Calcium (8.5-10.1) mg/dl POC Ioniz Calcium [place]rixie (1.12-1.32) mmol/l Phosphorus (2.5-4.9) mg/dl Magnesium (1.8-2.4) mg/dl Total Bilirubin (0.2-1) mg/dl AST (15-37) U/L ALT (12-78) U/L Alkaline Phosphatase (45-117) U/L Total Creatine Kinase (26-192) U/L Troponin I (0-0.045) ng/ml Total Protein (6.4-8.2) gm/dl Albumin (3.4-5.0) gm/dl Globulin (2.5-4.0) gm/dl Albumin/Globulin Ratio (0.9-2) Lipase (73-393) U/L Beta-Hydroxybutyric Acd (0.2-2.81) mg/dl Urine Color Yellow Urine Appearance Turbid A (Clear) Urine pH 5.5 (4.5-7.5) Ur Specific [place] 1.022 (1.000-1.030) Urine Protein 3+ H (Negative) Urine Glucose (UA) 3+ H (Negative) Urine Ketones 1+ H (Negative) Urine Blood 3+ H (Negative) Urine Nitrite Positive A (Negative) Urine Bilirubin Negative (Negative) Urine Urobilinogen Negative (Negative) Ur Leukocyte Esterase 2+ H (Negative) Urine WBC (Auto) >30 H (0-5) /hpf Urine RBC (Auto) 10-30 H (0-4) /hpf U Hyaline Cast (Auto) 1-5 (0-5) /lpf U Epithel Cells (Auto) >30 H (0-5) /lpf Urine Bacteria (Auto) 4+ H (Negative) Urine Yeast Not Reportable COVID-19 Eval Order SARS-CoV-2, RNA, NAAT (NEGATIVE) 11/20/20 11/20/20 11/20/20 Range/Units 16:21 16:20 16:20 WBC (4.8-10.8) K/uL RBC (4.2-5.4) M/uL Hgb (12.0-16.0) g/dL POC Hgb 13.6 (12.0-16.0) g/dl Hct (37-47) % POC Hct 40 (37-47) % MCV (80-100) fL MCH (25-34) pg MCHC (32-36) g/dL RDW Std Deviation (36.4-46.3) fL RDW Coeff of Jam (11.5-14.5) % Plt Count (130-400) K/uL MPV (7.4-10.4) fL Immature Gran % (Auto) % Neut % (Auto) % Lymph % (Auto) % Treasure % (Auto) % Eos % (Auto) % Baso % (Auto) % Neut # (Auto) (1.4-6.5) K/uL Lymph # (Auto) (1.2-3.4) K/uL Treasure # (Auto) (0.11-0.59) K/uL Eos # (Auto) (0-0.5) K/uL Baso # (Auto) (0-0.2) K/uL Immature Gran # (Auto) (0.00-0.02) K/uL Absolute Nucleated RBC (0-0) K/uL Nucleated RBC % (auto) % VBG pH (7.36-7.41) VBG pCO2 (38-50) mmHg VBG pO2 mmHg VBG HCO3 mmol/L VBG O2 Saturation % VBG Base Excess mEq/L Barometric Pressure mm/Hg POC Sodium 120 L (135-144) mmol/L Sodium (136-145) mmol/L POC Potassium 3.9 (3.3-5.0) mmol/L Potassium (3.5-5.1) mmol/L POC Chloride 86 L (101-112) mmol/L Chloride (98-107) mmol/L Carbon Dioxide (21-32) mmol/L POC Total CO2 26 (24-31) mmol/L Anion Gap (3-11) POC Anion Gap 13.0 L (16-25) mmol/L POC BUN 60 H (7-18) mg/dl BUN (7-18) mg/dl Creatinine (0.6-1.2) mg/dl POC Creatinine 2.5 H (0.6-1.3) mg/dl Est Cr Clr Drug Dosing ml/min Est GFR ( Amer) Est GFR (Non-Af Amer) BUN/Creatinine Ratio (10-20) Glucose (70-99) mg/dl POC Glucose (70-99) mg/dl POC Glucose (other) 501 H* (70-99) mg/dl Estimat Average Glucose mg/dl Hemoglobin A1c (4.5-5.6) % Lactate (0.4-2.0) mmol/L Calcium (8.5-10.1) mg/dl POC Ioniz Calcium Trixie 1.02 L (1.12-1.32) mmol/l Phosphorus (2.5-4.9) mg/dl Magnesium (1.8-2.4) mg/dl Total Bilirubin (0.2-1) mg/dl AST (15-37) U/L ALT (12-78) U/L Alkaline Phosphatase (45-117) U/L Total Creatine Kinase (26-192) U/L Troponin I (0-0.045) ng/ml Total Protein (6.4-8.2) gm/dl Albumin (3.4-5.0) gm/dl Globulin (2.5-4.0) gm/dl Albumin/Globulin Ratio (0.9-2) Lipase (73-393) U/L Beta-Hydroxybutyric Acd (0.2-2.81) mg/dl Urine Color Urine Appearance (Clear) Urine pH (4.5-7.5) Ur Specific [place] (1.000-1.030) Urine Protein (Negative) Urine Glucose (UA) (Negative) Urine Ketones (Negative) Urine Blood (Negative) Urine Nitrite (Negative) Urine Bilirubin (Negative) Urine Urobilinogen (Negative) Ur Leukocyte Esterase (Negative) Urine WBC (Auto) (0-5) /hpf Urine RBC (Auto) (0-4) /hpf U Hyaline Cast (Auto) (0-5) /lpf U Epithel Cells (Auto) (0-5) /lpf Urine Bacteria (Auto) (Negative) Urine Yeast COVID-19 Eval Order Covid19 [facility], 1928–1983 SARS-CoV-2, RNA, NAAT NEGATIVE (NEGATIVE) 11/20/20 11/20/20 11/20/20 Range/Units 16:19 15:53 15:53 WBC (4.8-10.8) K/uL RBC (4.2-5.4) M/uL Hgb (12.0-16.0) g/dL POC Hgb (12.0-16.0) g/dl Hct (37-47) % POC Hct (37-47) % MCV (80-100) fL MCH (25-34) pg MCHC (32-36) g/dL RDW Std Deviation (36.4-46.3) fL RDW Coeff of Jam (11.5-14.5) % Plt Count (130-400) K/uL MPV (7.4-10.4) fL Immature Gran % (Auto) % Neut % (Auto) % Lymph % (Auto) % Treasure % (Auto) % Eos % (Auto) % Baso % (Auto) % Neut # (Auto) (1.4-6.5) K/uL Lymph # (Auto) (1.2-3.4) K/uL Treasure # (Auto) (0.11-0.59) K/uL Eos # (Auto) (0-0.5) K/uL Baso # (Auto) (0-0.2) K/uL Immature Gran # (Auto) (0.00-0.02) K/uL Absolute Nucleated RBC (0-0) K/uL Nucleated RBC % (auto) % VBG pH 7.38 (7.36-7.41) VBG pCO2 44 (38-50) mmHg VBG pO2 27 mmHg VBG HCO3 25 mmol/L VBG O2 Saturation < 60.0 % VBG Base Excess 0 mEq/L Barometric Pressure 724.9 mm/Hg POC Sodium (135-144) mmol/L Sodium 121 L (136-145) mmol/L POC Potassium (3.3-5.0) mmol/L Potassium 3.8 (3.5-5.1) mmol/L POC Chloride (101-112) mmol/L Chloride 84 L (98-107) mmol/L Carbon Dioxide 24 (21-32) mmol/L POC Total CO2 (24-31) mmol/L Anion Gap 13.0 H (3-11) POC Anion Gap (16-25) mmol/L POC BUN (7-18) mg/dl BUN 56 H (7-18) mg/dl Creatinine 2.58 H (0.6-1.2) mg/dl POC Creatinine (0.6-1.3) mg/dl Est Cr Clr Drug Dosing 23.0 ml/min Est GFR ( Amer) 22.1 Est GFR (Non-Af Amer) 19.0 BUN/Creatinine Ratio 21.9 H (10-20) Glucose 480 H* (70-99) mg/dl POC Glucose (70-99) mg/dl POC Glucose (other) (70-99) mg/dl Estimat Average Glucose mg/dl Hemoglobin A1c (4.5-5.6) % Lactate (0.4-2.0) mmol/L Calcium 9.2 (8.5-10.1) mg/dl POC Ioniz Calcium Trixie (1.12-1.32) mmol/l Phosphorus 3.2 (2.5-4.9) mg/dl Magnesium 2.4 (1.8-2.4) mg/dl Total Bilirubin 0.5 (0.2-1) mg/dl AST 17 (15-37) U/L ALT 11 L (12-78) U/L Alkaline Phosphatase 175 H (45-117) U/L Total Creatine Kinase 160 (26-192) U/L Troponin I < 0.015 (0-0.045) ng/ml Total Protein 8.3 H (6.4-8.2) gm/dl Albumin 2.3 L (3.4-5.0) gm/dl Globulin 6.0 H (2.5-4.0) gm/dl Albumin/Globulin Ratio 0.4 L (0.9-2) Lipase 127 (73-393) U/L Beta-Hydroxybutyric Acd (0.2-2.81) mg/dl Urine Color Urine Appearance (Clear) Urine pH (4.5-7.5) Ur Specific [place] (1.000-1.030) Urine Protein (Negative) Urine Glucose (UA) (Negative) Urine Ketones (Negative) Urine Blood (Negative) Urine Nitrite (Negative) Urine Bilirubin (Negative) Urine Urobilinogen (Negative) Ur Leukocyte Esterase (Negative) Urine WBC (Auto) (0-5) /hpf Urine RBC (Auto) (0-4) /hpf U Hyaline Cast (Auto) (0-5) /lpf U Epithel Cells (Auto) (0-5) /lpf Urine Bacteria (Auto) (Negative) Urine Yeast COVID-19 Eval Order SARS-CoV-2, RNA, NAAT (NEGATIVE) 11/20/20 11/20/20 Range/Units 15:53 15:50 WBC 18.95 H (4.8-10.8) K/uL RBC 4.82 (4.2-5.4) M/uL Hgb 13.0 (12.0-16.0) g/dL POC Hgb (12.0-16.0) g/dl Hct 37.7 (37-47) % POC Hct (37-47) % MCV 78.2 L (80-100) fL MCH 27.0 (25-34) pg MCHC 34.5 (32-36) g/dL RDW Std Deviation 40.0 (36.4-46.3) fL RDW Coeff of Jam 14.0 (11.5-14.5) % Plt Count 249 (130-400) K/uL MPV 11.7 H (7.4-10.4) fL Immature Gran % (Auto) 0.7 % Neut % (Auto) 86.3 % Lymph % (Auto) 6.2 % [place] % (Auto) 6.6 % Eos % (Auto) 0.1 % Baso % (Auto) 0.1 % Neut # (Auto) 16.37 H (1.4-6.5) K/uL Lymph # (Auto) 1.17 L (1.2-3.4) K/uL [place] # (Auto) 1.25 H (0.11-0.59) K/uL Eos # (Auto) 0.01 (0-0.5) K/uL Baso # (Auto) 0.02 (0-0.2) K/uL Immature Gran # (Auto) 0.13 H (0.00-0.02) K/uL Absolute Nucleated RBC (0-0) K/uL Nucleated RBC % (auto) % VBG pH (7.36-7.41) VBG pCO2 (38-50) mmHg VBG pO2 mmHg VBG HCO3 mmol/L VBG O2 Saturation % VBG Base Excess mEq/L Barometric Pressure mm/Hg POC Sodium (135-144) mmol/L Sodium (136-145) mmol/L POC Potassium (3.3-5.0) mmol/L Potassium (3.5-5.1) mmol/L POC Chloride (101-112) mmol/L Chloride (98-107) mmol/L Carbon Dioxide (21-32) mmol/L POC Total CO2 (24-31) mmol/L Anion Gap (3-11) POC Anion Gap (16-25) mmol/L POC BUN (7-18) mg/dl BUN (7-18) mg/dl Creatinine (0.6-1.2) mg/dl POC Creatinine (0.6-1.3) mg/dl Est Cr Clr Drug Dosing ml/min Est GFR ( Amer) Est GFR (Non-Af Amer) BUN/Creatinine Ratio (10-20) Glucose (70-99) mg/dl POC Glucose 510 H* (70-99) mg/dl POC Glucose (other) (70-99) mg/dl Estimat Average Glucose mg/dl Hemoglobin A1c (4.5-5.6) % Lactate (0.4-2.0) mmol/L Calcium (8.5-10.1) mg/dl POC Ioniz Calcium [place] (1.12-1.32) mmol/l Phosphorus (2.5-4.9) mg/dl Magnesium (1.8-2.4) mg/dl Total Bilirubin (0.2-1) mg/dl AST (15-37) U/L ALT (12-78) U/L Alkaline Phosphatase (45-117) U/L Total Creatine Kinase (26-192) U/L Troponin I (0-0.045) ng/ml Total Protein (6.4-8.2) gm/dl Albumin (3.4-5.0) gm/dl Globulin (2.5-4.0) gm/dl Albumin/Globulin Ratio (0.9-2) Lipase (73-393) U/L Beta-Hydroxybutyric Acd (0.2-2.81) mg/dl Urine Color Urine Appearance (Clear) Urine pH (4.5-7.5) Ur Specific [place] (1.000-1.030) Urine Protein (Negative) Urine Glucose (UA) (Negative) Urine Ketones (Negative) Urine Blood (Negative) Urine Nitrite (Negative) Urine Bilirubin (Negative) Urine Urobilinogen (Negative) Ur Leukocyte Esterase (Negative) Urine WBC (Auto) (0-5) /hpf Urine RBC (Auto) (0-4) /hpf U Hyaline Cast (Auto) (0-5) /lpf U Epithel Cells (Auto) (0-5) /lpf Urine Bacteria (Auto) (Negative) Urine Yeast COVID-19 Eval Order SARS-CoV-2, RNA, NAAT (NEGATIVE) Medications Administered Current Inpatient Medications Acetaminophen (Acetaminophen 325 Mg Tab) 650 mg PO Q4H PRN PRN Reason: Pain or Fever Stop: 12/20/20 20:34 Clopidogrel Bisulfate (Clopidogrel Bisulfate 75 Mg Tab) 75 mg PO DAILY DAVID Stop: 12/21/20 08:59 Last Admin: 11/21/20 07:53 Dose: 75 mg Documented by: Dextrose (Dextrose 50% 50 Ml Syringe) 25 - 50 ml IV UD PRN; Protocol PRN Reason: Hypoglycemia Protocol Stop: 12/20/20 22:59 Glucagon (Glucagon For Inj 1 Mg Vial) 1 mg SQ UD PRN; Protocol PRN Reason: Hypoglycemia Protocol Stop: 12/20/20 22:59 Glucose (Glucose 40% Gel 15 Gm Tube) 15 - 30 gm PO UD PRN; Protocol PRN Reason: Hypoglycemia Protocol Stop: 12/20/20 22:59 Glucose (Glucose 10 Tabs/Tube) 4 - 8 tabs PO UD PRN; Protocol PRN Reason: Hypoglycemia Protocol Stop: 12/20/20 22:59 Heparin Sodium (Porcine) (Heparin Sod 5,000 Unit/0.5 Ml Vial) 5,000 units SQ Q8 DAVID Stop: 12/20/20 22:44 Last Admin: 11/21/20 06:20 Dose: Not Given Documented by: Hydroxyzine HCl (Hydroxyzine Hcl 10 Mg Tab) 10 mg PO HS PRN PRN Reason: anxiety or itching Stop: 12/20/20 20:34 Insulin Human Regular 250 (units/ Sodium Chloride) 250 mls @ 1.5 mls/hr IV .Q24H DAVID; Protocol Stop: 11/21/20 09:00 Last Titration: 11/21/20 07:06 Dose: 1.5 units/hr, 1.5 mls/hr Documented by: Cefepime HCl 1,000 mg/ Syringe 11.3 mls @ 5.5 mls/min IV Q24H DAVID; Protocol Stop: 12/01/20 17:59 Potassium Chloride/Sodium Chloride (Normal Saline W/20 Meq Kcl) 20 meq in 1,000 mls @ 125 mls/hr IV .Q8H DAVID Stop: 11/21/20 12:59 Last Admin: 11/21/20 06:14 Dose: 125 mls/hr Documented by: Insulin Aspart (Insulin Aspart 100 Units/Ml 3 Ml Pen) 0 units SC ACHS DAVID Stop: 12/21/20 07:29 Last Admin: 11/21/20 07:50 Dose: 4 units Documented by: Miscellaneous (Carbohydrates For Hypoglycemia ) 15 - 30 gm PO UD PRN PRN Reason: Hypoglycemia Treatment Stop: 12/20/20 22:59 Miscellaneous Information (Pharmacy Glycemic Mgmt Consult) 1 ea N/A UD PRN PRN Reason: Consult Stop: 12/20/20 20:57 Ondansetron HCl (Ondansetron Inj 2 Mg/Ml 2 Ml Vial) 4 mg IV Q6H PRN PRN Reason: Nausea Stop: 12/20/20 20:34 Simvastatin (Simvastatin 40 Mg Tab) 40 mg PO HS DAVID Stop: 12/20/20 20:59 Last Admin: 11/20/20 23:17 Dose: 40 mg Documented by: (1) Sepsis Sepsis acute organ dysfunction status: unspecified Sepsis type: sepsis due to unspecified organism Qualified Code(s): A41.9 - Sepsis, unspecified organism
[2020-11-21] MEDS: POTASSIUM CHLORIDE / WTR 10 MEQ/100 ML PLCT IV SCH ×2 (09:02→11:07)
[2020-11-21] MEDS: ACETAMINOPHEN 325 MG TAB PO PRN ×3 (09:24→21:47)
--- NOTE | 2020-11-21 10:10 | Pharmacy Report ---
Pharmacy Glycemic Short Note 2 - Date of Service November 21, 2020 - Glycemic Short BSG Results (Last 24 hours): 11/20/20 11/20/20 11/20/20 15:50 15:53 16:21 Glucose 480 H* POC Glucose 510 H* POC Glucose (other) 501 H* 11/20/20 11/20/20 11/20/20 17:28 19:41 20:30 Glucose POC Glucose 452 H* 413 H* 382 H* POC Glucose (other) 11/20/20 11/20/20 11/20/20 21:32 22:31 23:06 Glucose 289 H POC Glucose 286 H 313 H* POC Glucose (other) 11/20/20 11/21/20 11/21/20 23:59 00:58 02:01 Glucose POC Glucose 319 H* 273 H 259 H POC Glucose (other) 11/21/20 11/21/20 11/21/20 02:30 03:59 06:09 Glucose 228 H POC Glucose 188 H 133 H POC Glucose (other) 11/21/20 07:01 Glucose POC Glucose 128 H POC Glucose (other) OUTPATIENT ANTIDIABETIC REGIMEN: * Glimepiride 6 mg PO daily * Metformin 1000 mg PO BIDM * A1c = 10.6% (11/21/20) RISK FACTORS FOR INSULIN RESISTANCE: * Infection: Gram Negative Bacteremia secondary to Pyelonephritis on Cefepime * Diet: Clear Liquids ASSESSMENT: * 65 yo F admitted secondary to Pyelonephritis. History of Type 2 Diabetes Mellitus on Glimepiride and Metformin at home. Previous A1c was 7.8% in June 2019 according to H&P. A1c this morning up to 10.6%. Patient reports not taking home oral medications for several days secondary to nausea and vomiting. Pharmacy was consulted last evening for Glycemic Management Assistance. * BSG upon admission was 510 mg/dL. She had a normal pH with anion gap of 13 and ketonuria. Beta hydroxybutyric acid was unavailable secondary to hemolysis. She was given a 3.5 unit IV insulin bolus followed by starting an insulin drip at 3.3 units/hr with a goal range of 150-250 mg/dL. * BSGs were as follows on drip: [phone] mg/dL * Insulin drip initially increased to 4 units/hr but stayed mostly steady at 2.4 units/hr overnight * Estimating patient's daily insulin requirements to be ~ 50-60 units/day based on drip rates over the final 8 hours * Gave a full weight and stress of 2 dose of Lantus this AM and transitioned patient off the insulin drip. Novolog was started based on a weight and stress of 3. * Given patient's SAURAV, clear liquid diet ordered, and being insulin-naive, I erred on the side of caution with initial loading dose of Lantus as well as Novolog parameters. May require tightening throughout the day. PLAN FOR INPATIENT GLYCEMIC CONTROL: * Hold outpatient oral diabetes medications * Stop Insulin drip 2 hours after Lantus dose was given this morning * Basal insulin * Lantus 30 units SQ x 1 * Lantus 20-30 units SQ BID (see eMAR for further details) * Bolus insulin * NovoLog per scale ACHS or Q6hrs while NPO * Goal Range: Low 110 mg/dL - High 140 mg/dL * Correction Factor: 20 mg/dL/unit * Nutritional / Prandial insulin per carb ratio of 1 unit per 6 grams CHO consumed PLAN FOR DISCHARGE: * HbA1c = 10.6% which demonstrates poor outpatient control of Type 2 Diabetes Mellitus. Given patient's age and comorbidities, I would recommend a goal HbA1c of < 7.5%. * Patient will require insulin upon discharge from hospital. Doses to be determined.
[2020-11-21 14:27] LABS: BUN Creatinine Ratio 22.5 (10-20); Calcium 8.4 mg/dl (8.5-10.1); Est GFR (African American) 26.5; Est GFR (Non-African American) 22.8; Magnesium 2.2 mg/dl (1.8-2.4); Potassium 3.6 mmol/L (3.5-5.1)
[2020-11-21 14:45] LABS: Phosphorus 1.4 mg/dl (2.5-4.9)
[2020-11-21] MEDS ORDERED: SODIUM PHOSPHATE 3 MMOL/1 ML INFUSION IV STA (14:59)
[2020-11-21] MEDS: SODIUM CHLORIDE 0.9% 1000ML 1,000 ML IV SCH (15:26)
[2020-11-21] MEDS ORDERED: SODIUM PHOSPHATE 9 MMOL in SODIUM CHLORIDE 0.9% 250 ML IV ONE (15:30)
[2020-11-21] MEDS ORDERED: POTASSIUM CHLORIDE CRTAB 20 MEQ TABCR PO ONE (15:30)
[2020-11-21] MEDS ORDERED: CEFEPIME 1,000 MG in SYRINGE 0 ML IV SCH (18:00)
[2020-11-21] MEDS ORDERED: CEFEPIME 2,000 MG in SYRINGE 0 ML IV SCH (18:00)
[2020-11-21] MEDS ORDERED: INSULIN GLARGINE SOLOSTAR 100 UNITS/ML 3 ML PEN SC SCH (21:00)
[2020-11-21] MEDS: SIMVASTATIN 40 MG TAB PO SCH (21:23)
[2020-11-22] MEDS: INSULIN ASPART 100 UNITS/ML 3 ML PEN SC SCH ×6 (00:14→20:19)
[2020-11-22] MEDS: SODIUM CHLORIDE 0.9% 1000ML 1,000 ML IV SCH ×2 (04:13→17:24)
[2020-11-22] MEDS: HEPARIN SOD 5,000 UNIT/0.5 ML VIAL SQ SCH ×3 (05:04→20:36)
--- NOTE | 2020-11-22 07:30 | Hospitalist Progress Note ---
Date of Service November 22, 2020 Assessment & Plan (1) Sepsis: (2) Pyelonephritis: Gram negative bacteremia Pt is 65y/o F with PMH DM II, HTN, HLD, CVA, anxiety, depression presented to ER with C/O dysuria, hematuria x 4-5 days and nausea & vomiting x 3 days with left flank pain. Afebrile, tachycardic in ER 107, WBC: 18.9, UA consistent with infection CT abdomen/pelvis: 1. Asymmetric left perinephric and periureteral infiltration with possible urothelial thickening. The findings favor an infectious process such as left pyelonephritis/pyelitis. A recently passed calculus could appear similar although is considered less likely. 2. No bowel obstruction. 3. Left colon diverticulosis without evidence for acute diverticulitis. Blood culture (11/20/2020) x2 - positive for Gram negat. bacilli Urine culture - positive for E. coli (marin-sensitive) In ER given cefepime, 2L NSS Continue cefepime Clear liquid diet on admission, will advance now IVF Repeat blood cultx Monitor labs (3) Stress hyperglycemia: Glucose 510. Normal pH. Anion gap:13, + ketones urine, beta hydroxybutyric acid unavailable secondary to hemolysis Patient not taking oral diabetes medicines for several days secondary to vomiting In ER received insulin and IV insulin drip started. 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 Baseline creatinine 0.9 with GFR>60 Hold oral diabetes medication Hold lisinopril/HCTZ IVF Monitor renal functions, avoid other nephrotoxic agents and possible Nephrology consulted (6) Fall: Generalized weakness Patient with reported generalized weakness and unsteadiness. Reports fall. Likely secondary to underlying infection, hyperglycemia Left shoulder x-ray no acute fracture. No acute findings on CT head PT OT eval (7) Hyponatremia: Pseudohyponatremia in the setting of elevated blood glucose Na: 120, glucose of 501, Corrected Na: 128 Received 2L NSS in ER Na AM (11/21/2020) 128, now improved 132 - secondary to hypovolemia, improving w/ IV NS Monitor BMP (8) HTN (hypertension): In ER initial was 124/101 down to 133/88 Hold lisinopril/HCTZ secondary to SAURAV Monitor BP Current BP 112/80 (9) CVA (cerebral vascular accident): Continue Plavix, simvastatin (10) Anxiety and depression: Hold bupropion for now secondary to SAURAV. Decrease dose Vistaril secondary to SAURAV DVT Prophylaxis -SCDs DNR/DNI as per discussion with pt Follows with Dr Pimentel for routine care Admission and Anticipated Discharge Date Admission Date: November 20, 2020 Subjective Pt seen in follow up of gram negative bacteremia, pyelonephritis, uncontrolled DM type 2, hyponatremia Pt feels fatigued but better than yesterday Left flank pain improved but still somewhat bothersome, nausea/ vom. improved will advance diet She is OFF IV insulin, recommend insulin on DC, pt hesitant - also mentions insurance issues - will discuss w/ CM Review of Systems Review of Systems: All systems reviewed & are unremarkable except as noted in HPI & below Constitutional: + chills and + fatigue; no fever Respiratory: no cough and no dyspnea Cardiovascular: no chest pain and no palpitations Gastrointestinal: no abdominal pain, no nausea and no vomiting Genitourinary: + flank pain Physical Exam Physical Exam: General: obese female, +ill-appearing, fatigued Head: normocephalic, atraumatic Eyes: PERRL, EOM's intact, conjunctiva non-injected, anicteric ENT: normal inspection external ears, nose, mucous membranes dry Neck: supple, trachea midline, non-tender to palpation Lungs: clear, no respiratory distress, no wheezing/rhonchi/rales CV: RRR no murmur, no pretibial edema Abd: normal BS, soft, + Left CVA (improved) Ext: no calf tenderness; no LE edema, moves extremities Neuro: A&O x 3, no focal deficits noted, somewhat flat affect Skin: warm, dry Results & Data Results & Data ([facility]) Vital Signs (Past 12 Hours) Vital Signs Temp Pulse Pulse Resp BP BP Pulse Ox 11/22/20 07:13 36.6 C 92 H 20 146/94 H 92 11/22/20 02:50 36.6 C 88 20 141/78 H 98 11/22/20 00:49 88 11/22/20 00:30 36.4 C L 83 17 115/74 94 11/21/20 19:54 37.4 C 92 H 20 140/83 97 Laboratory Results 11/22/20 11/22/20 11/22/20 Range/Units 11:41 10:55 09:07 WBC 21.93 H RBC 3.95 L Hgb 10.8 L Hct 31.3 L MCV 79.2 L MCH 27.3 MCHC 34.5 RDW Std Deviation 41.1 RDW Coeff of Jam 14.2 Plt Count 232 MPV 10.8 H Absolute Nucleated RBC Nucleated RBC % (auto) Platelet Estimate Sodium 132 L (136-145) mmol/L Potassium 3.4 L (3.5-5.1) mmol/L Chloride 104 (98-107) mmol/L Carbon Dioxide 21 (21-32) mmol/L Anion Gap 8.0 (3-11) BUN 42 H (7-18) mg/dl Creatinine 1.77 H D (0.6-1.2) mg/dl Est Cr Clr Drug Dosing 34.0 ml/min Est GFR ( Amer) 34.8 Est GFR (Non-Af Amer) 30.0 BUN/Creatinine Ratio 23.9 H (10-20) Glucose 207 H (70-99) mg/dl POC Glucose 187 H (70-99) mg/dl Calcium 8.5 (8.5-10.1) mg/dl Phosphorus 1.7 L (2.5-4.9) mg/dl Magnesium 2.0 (1.8-2.4) mg/dl 11/22/20 11/22/20 11/22/20 Range/Units 07:37 05:40 04:12 WBC Cancelled RBC Cancelled Hgb Cancelled Hct Cancelled MCV Cancelled MCH Cancelled MCHC Cancelled RDW Std Deviation Cancelled RDW Coeff of Jam Cancelled Plt Count Cancelled MPV Cancelled Absolute Nucleated RBC Cancelled Nucleated RBC % (auto) Cancelled Platelet Estimate Cancelled Sodium (136-145) mmol/L Potassium (3.5-5.1) mmol/L Chloride (98-107) mmol/L Carbon Dioxide (21-32) mmol/L Anion Gap (3-11) BUN (7-18) mg/dl Creatinine (0.6-1.2) mg/dl Est Cr Clr Drug Dosing ml/min Est GFR ( Amer) Est GFR (Non-Af Amer) BUN/Creatinine Ratio (10-20) Glucose (70-99) mg/dl POC Glucose 132 H 137 H (70-99) mg/dl Calcium (8.5-10.1) mg/dl Phosphorus (2.5-4.9) mg/dl Magnesium (1.8-2.4) mg/dl 11/22/20 11/21/20 11/21/20 Range/Units 00:09 20:52 16:18 WBC RBC Hgb Hct MCV MCH MCHC RDW Std Deviation RDW Coeff of Jam Plt Count MPV Absolute Nucleated RBC Nucleated RBC % (auto) Platelet Estimate Sodium (136-145) mmol/L Potassium (3.5-5.1) mmol/L Chloride (98-107) mmol/L Carbon Dioxide (21-32) mmol/L Anion Gap (3-11) BUN (7-18) mg/dl Creatinine (0.6-1.2) mg/dl Est Cr Clr Drug Dosing ml/min Est GFR ( Amer) Est GFR (Non-Af Amer) BUN/Creatinine Ratio (10-20) Glucose (70-99) mg/dl POC Glucose 130 H 138 H 170 H (70-99) mg/dl Calcium (8.5-10.1) mg/dl Phosphorus (2.5-4.9) mg/dl Magnesium (1.8-2.4) mg/dl 11/21/20 Range/Units 13:42 WBC RBC Hgb Hct MCV MCH MCHC RDW Std Deviation RDW Coeff of Jam Plt Count MPV Absolute Nucleated RBC Nucleated RBC % (auto) Platelet Estimate Sodium 129 L (136-145) mmol/L Potassium 3.6 (3.5-5.1) mmol/L Chloride 98 (98-107) mmol/L Carbon Dioxide 21 (21-32) mmol/L Anion Gap 10.0 (3-11) BUN 50 H (7-18) mg/dl Creatinine 2.22 H (0.6-1.2) mg/dl Est Cr Clr Drug Dosing 27.0 ml/min Est GFR ( Amer) 26.5 Est GFR (Non-Af Amer) 22.8 BUN/Creatinine Ratio 22.5 H (10-20) Glucose 200 H (70-99) mg/dl POC Glucose (70-99) mg/dl Calcium 8.4 L (8.5-10.1) mg/dl Phosphorus 1.4 L* D (2.5-4.9) mg/dl Magnesium 2.2 (1.8-2.4) mg/dl Medications Administered Current Inpatient Medications Acetaminophen (Acetaminophen 325 Mg Tab) 650 mg PO Q4H PRN PRN Reason: Pain or Fever Stop: 12/20/20 20:34 Last Admin: 11/22/20 07:37 Dose: 650 mg Documented by: Clopidogrel Bisulfate (Clopidogrel Bisulfate 75 Mg Tab) 75 mg PO DAILY [facility] Stop: 12/21/20 08:59 Last Admin: 11/22/20 08:32 Dose: 75 mg Documented by: Dextrose (Dextrose 50% 50 Ml Syringe) 25 - 50 ml IV UD PRN; Protocol PRN Reason: Hypoglycemia Protocol Stop: 12/20/20 22:59 Glucagon (Glucagon For Inj 1 Mg Vial) 1 mg SQ UD PRN; Protocol PRN Reason: Hypoglycemia Protocol Stop: 12/20/20 22:59 Glucose (Glucose 40% Gel 15 Gm Tube) 15 - 30 gm PO UD PRN; Protocol PRN Reason: Hypoglycemia Protocol Stop: 12/20/20 22:59 Glucose (Glucose 10 Tabs/Tube) 4 - 8 tabs PO UD PRN; Protocol PRN Reason: Hypoglycemia Protocol Stop: 12/20/20 22:59 Heparin Sodium (Porcine) (Heparin Sod 5,000 Unit/0.5 Ml Vial) 5,000 units SQ Q8 DAVID Stop: 12/20/20 22:44 Last Admin: 11/22/20 05:04 Dose: 5,000 units Documented by: Hydroxyzine HCl (Hydroxyzine Hcl 10 Mg Tab) 10 mg PO HS PRN PRN Reason: anxiety or itching Stop: 12/20/20 20:34 Cefepime HCl 2,000 mg/ Syringe 20 mls @ 5 mls/min IV Q24H DAVID; Protocol Stop: 12/01/20 17:59 Last Admin: 11/21/20 17:37 Dose: 5 mls/min Documented by: Sodium Chloride (Nss 1000ml) 1,000 mls @ 80 mls/hr IV .[id number] [facility] Stop: 12/21/20 14:59 Last Admin: 11/22/20 04:13 Dose: 80 mls/hr Documented by: Insulin Aspart (Insulin Aspart 100 Units/Ml 3 Ml Pen) 0 units SC ACHS DAVID Stop: 12/21/20 07:29 Last Admin: 11/22/20 08:26 Dose: 4 units Documented by: Insulin Human NPH (Insulin Human Nph) 20 units SC QDB [facility]; Protocol Stop: 12/22/20 08:29 Last Admin: 11/22/20 08:28 Dose: 20 units Documented by: Lidocaine (Lidocaine 5% 1 Patch) 1 patch TD QAM [facility] Stop: 12/22/20 09:29 Last Admin: 11/22/20 10:05 Dose: 1 patch Documented by: Miscellaneous (Carbohydrates For Hypoglycemia ) 15 - 30 gm PO UD PRN PRN Reason: Hypoglycemia Treatment Stop: 12/20/20 22:59 Miscellaneous (Remove Lidoderm Patch) 1 ea N/A DAILY@2100 [facility] Stop: 12/22/20 20:59 Miscellaneous Information (Pharmacy Glycemic Mgmt Consult) 1 ea N/A UD PRN PRN Reason: Consult Stop: 12/20/20 20:57 Ondansetron HCl (Ondansetron Inj 2 Mg/Ml 2 Ml Vial) 4 mg IV Q6H PRN PRN Reason: Nausea Stop: 12/20/20 20:34 Potassium Chloride (Potassium Chloride Crtab 20 Meq Tabcr) 20 meq PO NOW STA Stop: 11/22/20 11:45 Saccharomyces Boulardii (Saccharomyces Boulardii 250 Mg Cap) 250 mg PO DAILY [facility] Stop: 12/22/20 09:29 Last Admin: 11/22/20 10:08 Dose: 250 mg Documented by: Simvastatin (Simvastatin 40 Mg Tab) 40 mg PO HS [facility] Stop: 12/20/20 20:59 Last Admin: 11/21/20 21:23 Dose: 40 mg Documented by: Sodium Phosphate (Sodium Phosphate 3 Mmol/1 Ml Infusion) 9 mmol IV NOW STA Stop: 11/22/20 11:44 (1) Sepsis Sepsis acute organ dysfunction status: unspecified Sepsis type: sepsis due to unspecified organism Qualified Code(s): A41.9 - Sepsis, unspecified organism
[2020-11-22] MEDS: ACETAMINOPHEN 325 MG TAB PO PRN ×2 (07:37→22:41)
[2020-11-22] MEDS: INSULIN HUMAN NPH SC SCH (08:28)
[2020-11-22] MEDS: CLOPIDOGREL BISULFATE 75 MG TAB PO SCH (08:32)
[2020-11-22 09:20] LABS: Hematocrit (blood only) 31.3 % (37-47); Hemoglobin 10.8 g/dL (12.0-16.0); Mean Corpuscular Hemoglobin 27.3 pg (25-34); Mean Corpuscular Hgb Conc 34.5 g/dL (32-36); Mean Corpuscular Volume 79.2 fL (80-100); Mean Platelet Volume 10.8 fL (7.4-10.4); Platelet Count 232 K/uL (130-400); RDW Coefficient of Variation 14.2 % (11.5-14.5); RDW Standard Deviation 41.1 fL (36.4-46.3); Red Blood Count 3.95 M/uL (4.2-5.4); White Blood Count 21.93 K/uL (4.8-10.8)
--- NOTE | 2020-11-22 09:21 | Pharmacy Report ---
Pharmacy Glycemic Short Note 2 - Date of Service November 22, 2020 - Glycemic Short BSG Results (Last 24 hours): OUTPATIENT ANTIDIABETIC REGIMEN: * Glimepiride 6 mg PO daily * Metformin 1000 mg PO BIDM * A1c = 10.6% (11/21/20) RISK FACTORS FOR INSULIN RESISTANCE: * Infection: Gram Negative Bacteremia secondary to Pyelonephritis on Cefepime * Diet: Clear Liquids ASSESSMENT: 11/22: * Kelly received a total of 49 units of insulin yesterday * 30 units basal + 19 units bolus * BSGs were [phone] mg/dL * Fasting BSG this AM was 132 mg/dL - controlled * Unsure of exact basal requirements at this time. 30 units seemed to be adequate yesterday. * Patient does not have health insurance so if she is to be discharged on insulin, it will have to be OTC Relion/Novolin from [facility]. Therefore, will transition patient to NPH insulin today rather than Lantus in hopes of zeroing in on discharge doses. * Postprandial BSGs trended downward yesterday * Therefore, loosened CF and CR this morning. 11/21: * 65 yo F admitted secondary to Pyelonephritis. History of Type 2 Diabetes Mellitus on Glimepiride and Metformin at home. Previous A1c was 7.8% in June 2019 according to H&P. A1c this morning up to 10.6%. Patient reports not taking home oral medications for several days secondary to nausea and vomiting. Pharmacy was consulted last evening for Glycemic Management Assistance. * BSG upon admission was 510 mg/dL. She had a normal pH with anion gap of 13 and ketonuria. Beta hydroxybutyric acid was unavailable secondary to hemolysis. She was given a 3.5 unit IV insulin bolus followed by starting an insulin drip at 3.3 units/hr with a goal range of 150-250 mg/dL. * BSGs were as follows on drip: [phone] mg/dL * Insulin drip initially increased to 4 units/hr but stayed mostly steady at 2.4 units/hr overnight * Estimating patient's daily insulin requirements to be ~ 50-60 units/day based on drip rates over the final 8 hours * Gave a full weight and stress of 2 dose of Lantus this AM and transitioned patient off the insulin drip. Novolog was started based on a weight and stress of 3. * Given patient's SAURAV, clear liquid diet ordered, and being insulin-naive, I erred on the side of caution with initial loading dose of Lantus as well as Novolog parameters. May require tightening throughout the day. PLAN FOR INPATIENT GLYCEMIC CONTROL: * Hold outpatient oral diabetes medications * Basal insulin - transition to NPH * NPH 20 units SQ with breakfast * NPH 10 units SQ with dinner * Bolus insulin - loosened * NovoLog per scale ACHS or Q6hrs while NPO * Goal Range: Low 110 mg/dL - High 140 mg/dL * Correction Factor: 25 mg/dL/unit * Nutritional / Prandial insulin per carb ratio of 1 unit per 8 grams CHO consumed PLAN FOR DISCHARGE: * HbA1c = 10.6% which demonstrates poor outpatient control of Type 2 Diabetes Mellitus. Given patient's age and comorbidities, I would recommend a goal HbA1c of < 7.5%. * Patient will likely require insulin upon discharge from hospital unless she has not been taking oral medications as an outpatient. She does not have healthcare insurance, and therefore, will require OTC Relion/Novolin insulin at discharge. Made decision to transition patient from Lantus to NPH today in hopes of determining an accurate dose prior to discharge. * Doses TBD at this time
[2020-11-22] MEDS: LIDOCAINE 5% 1 PATCH TD SCH (10:05)
[2020-11-22] MEDS: SACCHAROMYCES BOULARDII 250 MG CAP PO SCH (10:08)
--- NOTE | 2020-11-22 11:13 | Consultation Report ---
DATE OF CONSULTATION: 11/22/2020 REASON FOR CONSULT: Acute renal failure and hyponatremia. HISTORY OF PRESENT ILLNESS: The patient was admitted 2 days ago with nausea, vomiting, dysuria and hematuria for 3 days. She was not able to eat and drink for many days prior to hospitalization. She was also complaining of left flank pain and left lower quadrant pain. She was found to have urinary tract infection as well as bacteremia with Gram-negative bacteria. CT scan showed possible left pyelonephritis. She is getting IV fluid as well as IV antibiotics and with that serum sodium has improved from 121 on admission to 129 yesterday. Today's labs are still pending. The patient is making urine. The patient does not recall having kidney failure or anything related with kidney prior to hospitalization. She was on lisinopril and hydrochlorothiazide prior to admission, which is currently on hold. REVIEW OF SYSTEMS: At this time, the patient feels better. She feels more hungry and overall has more energy. PAST MEDICAL AND SURGICAL HISTORY: Includes anxiety and depression, history of stroke few years ago, type 2 diabetes, dyslipidemia, hypertension, history of cerebral aneurysm repair in 1975. FAMILY HISTORY: Negative for renal disease or dialysis. SOCIAL HISTORY: Former smoker, no alcohol. She lives in her home by herself. REVIEW OF SYSTEMS: Positive for nausea, vomiting, poor appetite, left flank pain and left lower quadrant abdominal pain prior to hospitalization, prior to that everything else was normal. Total systems reviewed 12 and otherwise negative. ALLERGY LIST: Reviewed and is as per the reconciliation list. HOME MEDICATIONS: Include bupropion, Plavix, glimepiride, hydroxyzine, lisinopril, hydrochlorothiazide, metformin, simvastatin. PHYSICAL EXAMINATION: GENERAL: Middle-aged white female who is obese. She is awake, alert, oriented x3. HEENT: Mucous membrane moist. NECK: Supple. No jugular venous distention. VITAL SIGNS: Blood pressure is 146/94, pulse rate 91, temperature 36.6, 92% on room air. Mucous membranes moist. NECK: Supple. CHEST: Bilateral decreased breath sounds, but very poor inspiratory effort. CARDIOVASCULAR: S1 and S2, regular. ABDOMEN: Soft, nontender, obese, some tenderness in the left lower quadrant and left flank. EXTREMITIES: Shows no edema. LABORATORY TESTS: Was reviewed. On admission, she had a serum sodium of 121, creatinine was 2.58, yesterday it was down to 2.22. Today's lab is pending at this time. Phosphorus was low at 1.4 yesterday and it appears she did give the phosphorous supplement. ASSESSMENT AND PLAN: A 65-year-old female with previously normal kidney function, admitted with sepsis, bacteremia with gram-negative bacteria, most likely of urinary source with urinary tract infection as well as left pyelonephritis. I have been consulted for acute renal failure and hyponatremia. 1. Acute renal failure, this is secondary to acute tubular necrosis and not a case of simple volume depletion. Urinary findings as well as clinical setting of sepsis with bacteremia is pointing towards acute tubular necrosis. However, she is making urine in increasing amount and creatinine is not very high at this time and I expect the creatinine to trend downwards in the coming days. No further workup is needed. She already had a CT scan done which did not show any hydronephrosis, but showed possible left-sided pyelonephritis. 2. Hyponatremia. This was secondary to volume depletion and it is improving quite nicely with the use of normal saline. Today's lab is pending and I will be reviewing the labs later today and making adjustment as needed.
[2020-11-22 11:34] LABS: BUN Creatinine Ratio 23.9 (10-20); Calcium 8.5 mg/dl (8.5-10.1); Est GFR (African American) 34.8; Potassium 3.4 mmol/L (3.5-5.1)
[2020-11-22 11:35] LABS: Phosphorus 1.7 mg/dl (2.5-4.9)
[2020-11-22] MEDS ORDERED: SODIUM PHOSPHATE 3 MMOL/1 ML INFUSION IV STA (11:43)
[2020-11-22] MEDS ORDERED: POTASSIUM CHLORIDE CRTAB 20 MEQ TABCR PO ONE (12:30)
[2020-11-22] MEDS ORDERED: SODIUM PHOSPHATE 9 MMOL in SODIUM CHLORIDE 0.9% 250 ML IV ONE (12:30)
[2020-11-22] MEDS: CEFEPIME 2,000 MG in SYRINGE 0 ML IV SCH (15:14)
[2020-11-22] MEDS ORDERED: INSULIN HUMAN NPH SC SCH (16:30)
[2020-11-22] MEDS: hydrOXYzine HCl 25 MG TAB PO PRN (17:16)
[2020-11-22] MEDS: SIMVASTATIN 40 MG TAB PO SCH (20:36)
[2020-11-23] MEDS: CEFEPIME 2,000 MG in SYRINGE 0 ML IV SCH (02:09)
[2020-11-23] MEDS: HEPARIN SOD 5,000 UNIT/0.5 ML VIAL SQ SCH ×3 (06:02→20:24)
[2020-11-23 06:56] LABS: Hematocrit (blood only) 32.4 % (37-47); Hemoglobin 11.2 g/dL (12.0-16.0); Mean Corpuscular Hemoglobin 27.3 pg (25-34); Mean Corpuscular Hgb Conc 34.6 g/dL (32-36); Mean Platelet Volume 10.5 fL (7.4-10.4); Platelet Count 282 K/uL (130-400); RDW Coefficient of Variation 14.6 % (11.5-14.5); RDW Standard Deviation 42.3 fL (36.4-46.3); White Blood Count 20.38 K/uL (4.8-10.8)
--- NOTE | 2020-11-23 07:35 | Hospitalist Progress Note ---
Date of Service November 23, 2020 Assessment & Plan (1) Sepsis: (2) Pyelonephritis: Gram negative bacteremia Pt is 65y/o F with PMH DM II, HTN, HLD, CVA, anxiety, depression presented to ER with C/O dysuria, hematuria x 4-5 days and nausea & vomiting x 3 days with left flank pain. Afebrile, tachycardic in ER 107, WBC: 18.9, UA consistent with infection CT abdomen/pelvis: 1. Asymmetric left perinephric and periureteral infiltration with possible urothelial thickening. The findings favor an infectious process such as left pyelonephritis/pyelitis. A recently passed calculus could appear similar although is considered less likely. 2. No bowel obstruction. 3. Left colon diverticulosis without evidence for acute diverticulitis. In ER given cefepime, 2L NSS Continued cefepime IVF Blood culture (11/20/2020) x2 - positive for Gram negat. bacilli - E.coli - will switch Abx to Cipro Urine culture - positive for E. coli (marin-sensitive) Repeat blood cultx - NGTD Monitor labs (3) Stress hyperglycemia: Glucose 510. Normal pH. Anion gap:13, + ketones urine, beta hydroxybutyric acid unavailable secondary to hemolysis Patient not taking oral diabetes medicines for several days secondary to vomiting In ER received insulin and IV insulin drip started. Potassium total 20 MEQ IV, 2 L NSS Continued with IV insulin, glycemic pharmacist on board to assist in glycemic management Pt OFF IV insulin last A1c 7.8 in 06/2019, current A1c above 10%, community educator consulted Hold home oral meds while inpt Would benefit from insulin on DC (4) Diabetes mellitus, type II: (5) SAURAV (acute kidney injury): BUN: 56, creatinine: 2.5, BUN/creatinine ratio: 22. Baseline creatinine 0.9 with GFR>60 Hold oral diabetes medication Hold lisinopril/HCTZ IVF Monitor renal functions, avoid other nephrotoxic agents and possible Nephrology consulted Cr improved (6) Fall: Generalized weakness Patient with reported generalized weakness and unsteadiness. Reports fall. Likely secondary to underlying infection, hyperglycemia Left shoulder x-ray no acute fracture. No acute findings on CT head PT OT eval (7) Hyponatremia: Pseudohyponatremia in the setting of elevated blood glucose Na: 120, glucose of 501, Corrected Na: 128 Received 2L NSS in ER Na AM (11/21/2020) 128, now improved 132 - secondary to hypovolemia, improving w/ IV NS Monitor BMP Na normalized now (8) HTN (hypertension): In ER initial was 124/101 down to 133/88 Hold lisinopril/HCTZ secondary to SAURAV Monitor BP (9) CVA (cerebral vascular accident): Continue Plavix, simvastatin (10) Anxiety and depression: Hold bupropion for now secondary to SAURAV. Decrease dose Vistaril secondary to SAURAV DVT Prophylaxis -SCDs DNR/DNI as per discussion with pt Follows with Dr Pimentel for routine care Admission and Anticipated Discharge Date Admission Date: November 20, 2020 Subjective Pt seen in follow up of gram negative bacteremia, pyelonephritis, uncontrolled DM type 2, hyponatremia, SAURAV Pt feels fatigued but improved Left flank pain improved but still somewhat bothersome No fever, nausea or vomiting Pt feels now that she ok w/ insulin on DC Review of Systems Review of Systems: All systems reviewed & are unremarkable except as noted in HPI & below Constitutional: + fatigue; no fever and no chills Respiratory: no cough and no dyspnea Cardiovascular: no chest pain and no palpitations Gastrointestinal: no abdominal pain, no nausea and no vomiting Genitourinary: + flank pain (improved) Physical Exam Physical Exam: General: obese female, +ill-appearing, fatigued Head: normocephalic, atraumatic Eyes: PERRL, EOM's intact, conjunctiva non-injected, anicteric ENT: normal inspection external ears, nose, mucous membranes dry Neck: supple, trachea midline, non-tender to palpation Lungs: clear, no respiratory distress, no wheezing/rhonchi/rales CV: RRR no murmur, no pretibial edema Abd: normal BS, soft, + Left CVA (improved) Ext: no calf tenderness; no LE edema, moves extremities Neuro: A&O x 3, no focal deficits noted, somewhat flat affect Skin: warm, dry Results & Data Results & Data ([facility]) Vital Signs (Past 12 Hours) Vital Signs Temp Pulse Pulse Resp BP BP Pulse Ox 11/23/20 07:23 36.7 C 92 H 9 L 170/95 H 91 11/23/20 05:08 36.5 C 84 18 135/85 96 11/23/20 01:00 91 H 11/23/20 00:22 37 C 92 H 20 121/73 96 Laboratory Results 11/23/20 11/23/20 11/23/20 Range/Units 07:26 07:25 06:34 WBC 20.38 H (4.8-10.8) K/uL RBC 4.10 L (4.2-5.4) M/uL Hgb 11.2 L (12.0-16.0) g/dL Hct 32.4 L (37-47) % MCV 79.0 L (80-100) fL MCH 27.3 (25-34) pg MCHC 34.6 (32-36) g/dL RDW Std Deviation 42.3 (36.4-46.3) fL RDW Coeff of Jam 14.6 H (11.5-14.5) % Plt Count 282 (130-400) K/uL MPV 10.5 H (7.4-10.4) fL Sodium (136-145) mmol/L Potassium (3.5-5.1) mmol/L Chloride (98-107) mmol/L Carbon Dioxide (21-32) mmol/L Anion Gap (3-11) BUN (7-18) mg/dl Creatinine (0.6-1.2) mg/dl Est Cr Clr Drug Dosing ml/min Est GFR ( Amer) Est GFR (Non-Af Amer) BUN/Creatinine Ratio (10-20) Glucose (70-99) mg/dl POC Glucose 77 68 L* (70-99) mg/dl Calcium (8.5-10.1) mg/dl Phosphorus (2.5-4.9) mg/dl Magnesium (1.8-2.4) mg/dl 11/23/20 11/23/20 11/22/20 Range/Units 06:34 01:31 20:12 WBC (4.8-10.8) K/uL RBC (4.2-5.4) M/uL Hgb (12.0-16.0) g/dL Hct (37-47) % MCV (80-100) fL MCH (25-34) pg MCHC (32-36) g/dL RDW Std Deviation (36.4-46.3) fL RDW Coeff of Jam (11.5-14.5) % Plt Count (130-400) K/uL MPV (7.4-10.4) fL Sodium 140 D (136-145) mmol/L Potassium 3.3 L (3.5-5.1) mmol/L Chloride 110 H (98-107) mmol/L Carbon Dioxide 21 (21-32) mmol/L Anion Gap 9.0 (3-11) BUN 35 H (7-18) mg/dl Creatinine 1.60 H (0.6-1.2) mg/dl Est Cr Clr Drug Dosing 37.7 ml/min Est GFR ( Amer) 39.3 Est GFR (Non-Af Amer) 33.9 BUN/Creatinine Ratio 21.7 H (10-20) Glucose 74 (70-99) mg/dl POC Glucose 74 120 H (70-99) mg/dl Calcium 8.6 (8.5-10.1) mg/dl Phosphorus 1.9 L (2.5-4.9) mg/dl Magnesium 1.9 (1.8-2.4) mg/dl 11/22/20 11/22/20 11/22/20 Range/Units 16:19 11:41 10:55 WBC (4.8-10.8) K/uL RBC (4.2-5.4) M/uL Hgb (12.0-16.0) g/dL Hct (37-47) % MCV (80-100) fL MCH (25-34) pg MCHC (32-36) g/dL RDW Std Deviation (36.4-46.3) fL RDW Coeff of Jam (11.5-14.5) % Plt Count (130-400) K/uL MPV (7.4-10.4) fL Sodium 132 L (136-145) mmol/L Potassium 3.4 L (3.5-5.1) mmol/L Chloride 104 (98-107) mmol/L Carbon Dioxide 21 (21-32) mmol/L Anion Gap 8.0 (3-11) BUN 42 H (7-18) mg/dl Creatinine 1.77 H D (0.6-1.2) mg/dl Est Cr Clr Drug Dosing 34.0 ml/min Est GFR ( Amer) 34.8 Est GFR (Non-Af Amer) 30.0 BUN/Creatinine Ratio 23.9 H (10-20) Glucose 207 H (70-99) mg/dl POC Glucose 119 H 187 H (70-99) mg/dl Calcium 8.5 (8.5-10.1) mg/dl Phosphorus 1.7 L (2.5-4.9) mg/dl Magnesium 2.0 (1.8-2.4) mg/dl 11/22/20 Range/Units 09:07 WBC 21.93 H (4.8-10.8) K/uL RBC 3.95 L (4.2-5.4) M/uL Hgb 10.8 L (12.0-16.0) g/dL Hct 31.3 L (37-47) % MCV 79.2 L (80-100) fL MCH 27.3 (25-34) pg MCHC 34.5 (32-36) g/dL RDW Std Deviation 41.1 (36.4-46.3) fL RDW Coeff of Jam 14.2 (11.5-14.5) % Plt Count 232 (130-400) K/uL MPV 10.8 H (7.4-10.4) fL Sodium (136-145) mmol/L Potassium (3.5-5.1) mmol/L Chloride (98-107) mmol/L Carbon Dioxide (21-32) mmol/L Anion Gap (3-11) BUN (7-18) mg/dl Creatinine (0.6-1.2) mg/dl Est Cr Clr Drug Dosing ml/min Est GFR ( Amer) Est GFR (Non-Af Amer) BUN/Creatinine Ratio (10-20) Glucose (70-99) mg/dl POC Glucose (70-99) mg/dl Calcium (8.5-10.1) mg/dl Phosphorus (2.5-4.9) mg/dl Magnesium (1.8-2.4) mg/dl Medications Administered Current Inpatient Medications Acetaminophen (Acetaminophen 325 Mg Tab) 650 mg PO Q4H PRN PRN Reason: Pain or Fever Stop: 12/20/20 20:34 Last Admin: 11/22/20 22:41 Dose: 650 mg Documented by: Clopidogrel Bisulfate (Clopidogrel Bisulfate 75 Mg Tab) 75 mg PO DAILY [facility] Stop: 12/21/20 08:59 Last Admin: 11/23/20 07:52 Dose: 75 mg Documented by: Dextrose (Dextrose 50% 50 Ml Syringe) 25 - 50 ml IV UD PRN; Protocol PRN Reason: Hypoglycemia Protocol Stop: 12/20/20 22:59 Glucagon (Glucagon For Inj 1 Mg Vial) 1 mg SQ UD PRN; Protocol PRN Reason: Hypoglycemia Protocol Stop: 12/20/20 22:59 Glucose (Glucose 40% Gel 15 Gm Tube) 15 - 30 gm PO UD PRN; Protocol PRN Reason: Hypoglycemia Protocol Stop: 12/20/20 22:59 Glucose (Glucose 10 Tabs/Tube) 4 - 8 tabs PO UD PRN; Protocol PRN Reason: Hypoglycemia Protocol Stop: 12/20/20 22:59 Heparin Sodium (Porcine) (Heparin Sod 5,000 Unit/0.5 Ml Vial) 5,000 units SQ Q8 [facility] Stop: 12/20/20 22:44 Last Admin: 11/23/20 06:02 Dose: 5,000 units Documented by: Hydroxyzine HCl (Hydroxyzine Hcl 25 Mg Tab) 25 mg PO HS PRN PRN Reason: Anxiety or Itching Stop: 12/22/20 16:55 Last Admin: 11/22/20 17:16 Dose: 25 mg Documented by: Ciprofloxacin (Cipro / D5w) 400 mg in 200 mls @ 100 mls/hr IV Q12H [facility]; Protocol Stop: 12/07/20 08:59 Insulin Aspart (Insulin Aspart 100 Units/Ml 3 Ml Pen) 0 units SC ACHS [facility]; Protocol Stop: 12/21/20 07:29 Last Admin: 11/23/20 07:49 Dose: Not Given Documented by: Insulin Glargine (Insulin Glargine Solostar 100 Units/Ml 3 Ml Pen) 20 units SC DAILY [facility] Stop: 12/23/20 08:59 Lidocaine (Lidocaine 5% 1 Patch) 1 patch TD QAM [facility] Stop: 12/22/20 09:29 Last Admin: 11/23/20 07:50 Dose: 1 patch Documented by: Miscellaneous (Carbohydrates For Hypoglycemia ) 15 - 30 gm PO UD PRN PRN Reason: Hypoglycemia Treatment Stop: 12/20/20 22:59 Miscellaneous (Remove Lidoderm Patch) 1 ea N/A DAILY@2100 [facility] Stop: 12/22/20 20:59 Last Admin: 11/22/20 20:36 Dose: 1 ea Documented by: Miscellaneous Information (Pharmacy Glycemic Mgmt Consult) 1 ea N/A UD PRN PRN Reason: Consult Stop: 12/20/20 20:57 Ondansetron HCl (Ondansetron Inj 2 Mg/Ml 2 Ml Vial) 4 mg IV Q6H PRN PRN Reason: Nausea Stop: 12/20/20 20:34 Last Admin: 11/22/20 17:24 Dose: 4 mg Documented by: Potassium Chloride (Potassium Chloride Crtab 20 Meq Tabcr) 40 meq PO NOW STA Stop: 11/23/20 08:18 Saccharomyces Boulardii (Saccharomyces Boulardii 250 Mg Cap) 250 mg PO DAILY [facility] Stop: 12/22/20 09:29 Last Admin: 11/23/20 07:47 Dose: 250 mg Documented by: Simvastatin (Simvastatin 40 Mg Tab) 40 mg PO HS [facility] Stop: 12/20/20 20:59 Last Admin: 11/22/20 20:36 Dose: 40 mg Documented by: (1) Sepsis Sepsis acute organ dysfunction status: unspecified Sepsis type: sepsis due to unspecified organism Qualified Code(s): A41.9 - Sepsis, unspecified organism
[2020-11-23 07:38] LABS: BUN Creatinine Ratio 21.7 (10-20); Calcium 8.6 mg/dl (8.5-10.1); Creatinine Clr Calc Pharmacy 37.7 ml/min; Est GFR (African American) 39.3; Est GFR (Non-African American) 33.9; Magnesium 1.9 mg/dl (1.8-2.4); Phosphorus 1.9 mg/dl (2.5-4.9); Potassium 3.3 mmol/L (3.5-5.1)
[2020-11-23] MEDS: SACCHAROMYCES BOULARDII 250 MG CAP PO SCH (07:47)
[2020-11-23] MEDS: INSULIN ASPART 100 UNITS/ML 3 ML PEN SC SCH ×4 (07:49→20:49)
[2020-11-23] MEDS: LIDOCAINE 5% 1 PATCH TD SCH (07:50)
[2020-11-23] MEDS: CLOPIDOGREL BISULFATE 75 MG TAB PO SCH (07:52)
[2020-11-23] MEDS ORDERED: POTASSIUM CHLORIDE CRTAB 20 MEQ TABCR PO STA (08:17)
[2020-11-23] MEDS: CIPROFLOXACIN / D5W 400 MG/200 ML BAG IV SCH ×3 (08:54→20:24)
[2020-11-23] MEDS: INSULIN GLARGINE SOLOSTAR 100 UNITS/ML 3 ML PEN SC SCH (08:55)
[2020-11-23] MEDS ORDERED: POTASSIUM CHLORIDE CRTAB 20 MEQ TABCR PO ONE (09:00)
--- NOTE | 2020-11-23 10:06 | Nephrology Progress Note ---
Date of Service November 23, 2020 Assessment & Plan (1) SAURAV (acute kidney injury): Patient with acute kidney injury due to ischemic ATN in setting of pyelonephritis and bacteremia. Creatinine is downtrending to 1.6 today from 1.77 yesterday. She has hypokalemia but other electrolytes are stable. -Potassium chloride 40 mEq once today -High potassium diet -Daily BMP -Avoid nephrotoxins (2) Pyelonephritis: Patient is receiving ciprofloxacin. Renally dose antibiotics for current GFR. (3) HTN (hypertension): Blood pressure has been fluctuating. No need to aggressively lower blood pressure in setting of acute infection. Will consider BP meds if systolic is consistently above 170 Admission and Anticipated Discharge Date Admission Date: November 20, 2020 Subjective Patient seen in follow-up of gram-negative bacteremia and pyonephritis. She still has left flank pain. No shortness of breath. She is eating better. Blood pressure is on the high side today Review of Systems Review of Systems: All systems reviewed & are unremarkable except as noted in HPI & below Physical Exam Physical Exam: General exam: Appears comfortable, no acute distress HEENT: Pupils are equal and reactive to light Neck: No JVD, neck is supple trachea is midline Respiratory system: Clear breath sounds bilaterally. Gastrointestinal: Abdomen is soft, non distended, non tender, bowel sounds are present CVS: Regular rate and rhythm. No murmurs, rubs or gallops Musculoskeletal: No joint or muscle tenderness Extremities: Non tender, no edema, peripheral pulses are present Neuro: Oriented, no tremors, no focal neurological deficits Skin: No rashes Results & Data ([facility]) Vital Signs (Past 12 Hours) Vital Signs Temp Pulse Pulse Resp BP BP Pulse Ox 11/23/20 07:23 36.7 C 92 H 9 L 170/95 H 91 11/23/20 05:08 36.5 C 84 18 135/85 96 11/23/20 01:00 91 H 11/23/20 00:22 37 C 92 H 20 121/73 96 Laboratory Results 11/23/20 06:34 11/22/20 11/23/20 11/23/20 10:55 06:34 06:34 WBC 20.38 H RBC 4.10 L MCV 79.0 L MCH 27.3 MCHC 34.6 RDW Std Deviation 42.3 RDW Coeff of Jam 14.6 H Plt Count 282 MPV 10.5 H Phosphorus 1.7 L 1.9 L
--- NOTE | 2020-11-23 10:18 | Pharmacy Report ---
Glycemic Control Progress Note - Date of Service November 23, 2020 - Scope Glycemic Pharmacist consulted for glycemic control to write orders per [facility] inpatient glycemic control protocol. - Objective Accuchecks BSG(last 24 hours):: 11/22/20 11/22/20 11/22/20 10:55 11:41 16:19 Glucose 207 H POC Glucose 187 H 119 H 11/22/20 11/23/20 11/23/20 20:12 01:31 06:34 Glucose 74 POC Glucose 120 H 74 11/23/20 11/23/20 07:25 07:26 Glucose POC Glucose 68 L* 77 HbA1c:: Hemoglobin A1c 10.6 % (4.5-5.6) H 11/21/20 02:30 - Recent Pertinent Medications The patient is currently receiving: * Basal insulin: NPH 20 units in the morning and 10 units in the evening * Correctional Insulin: Novolog Correction per scale ACHS Goal Range: Low 110 mg/dL - High 140 mg/dL Correction Factor: 25 mg/dL/unit * Prandial insulin: Per carb ratio of 1 unit per 8 grams CHO consumed - Outpatient Anti-Diabetic Meds Amaryl 6 mg daily metformin 1 gm BIDM - Assessment & Plan ASSESSMENT: * See progress note from 11/21/20 for more background info, in short: * Pt receiving SQ basal bolus insulin regimen for hyperglycemia secondary to baseline DM (outpatient regimen on hold). Patient with bacteremia now receiving ciprofloxacin. * Patient is currently receiving an average of 45 units of insulin per day * 30 units of basal insulin * 15 units of prandial/correctional insulin * BSGs ranging 119 - 187 mg/dl over the past 24hrs * Changes needed to insulin regimen: * AM Fasting BSG = 77 mg/dl. This is below goal range for patient based on inpatient targets and co-morbidities. Per in service educator, patient's cheapest insulin option would be Lantus. Change back to this today. Since 30 units of basal insulin is too aggressive, reduce dose by 33% to Lantus 20 units daily. This may require further dose reductions. * Post-prandial BSGs are in range therefore no changes needed to CF/CR. * Total daily dose = ~35 units. Reduced insulin appropriately. PLAN FOR INPATIENT GLYCEMIC CONTROL: * Decreasing Lantus to 20 units SQ daily * Continuing correction factor of 25 mg/dl/unit * Continuing carb ratio of 1 unit per 8 grams CHO consumed * Continuing goal range of Low 110 mg/dL - High 140 mg/dL RECOMMENDATIONS FOR DISCHARGE: * Recommended goal HbA1C for patient with above comorbidities is <7.5% * Lantus 20 units SQ daily * Metformin 1 gm PO BIDM * d/c Amaryl with initiation of Lantus Thank you.
[2020-11-23] MEDS ORDERED: POTASSIUM CHLORIDE / WTR 10 MEQ/100 ML PLCT IV ONE (13:00)
[2020-11-23] MEDS: SIMVASTATIN 40 MG TAB PO SCH (20:23)
[2020-11-23] MEDS: hydrOXYzine HCl 25 MG TAB PO PRN (21:05)
[2020-11-24 01:45] LABS: Hematocrit (blood only) 31.7 % (37-47); Hemoglobin 10.5 g/dL (12.0-16.0); Mean Corpuscular Hemoglobin 26.4 pg (25-34); Mean Corpuscular Hgb Conc 33.1 g/dL (32-36); Mean Corpuscular Volume 79.6 fL (80-100); Mean Platelet Volume 10.2 fL (7.4-10.4); Platelet Count 344 K/uL (130-400); RDW Coefficient of Variation 14.6 % (11.5-14.5); RDW Standard Deviation 42.5 fL (36.4-46.3); Red Blood Count 3.98 M/uL (4.2-5.4); White Blood Count 20.77 K/uL (4.8-10.8)
[2020-11-24 02:09] LABS: BUN Creatinine Ratio 19.5 (10-20); Calcium 8.1 mg/dl (8.5-10.1); Creatinine Clr Calc Pharmacy 39.7 ml/min; Est GFR (African American) 41.9; Est GFR (Non-African American) 36.1; Magnesium 1.7 mg/dl (1.8-2.4); Potassium 3.4 mmol/L (3.5-5.1)
[2020-11-24 02:10] LABS: Phosphorus 1.6 mg/dl (2.5-4.9)
[2020-11-24] MEDS: ACETAMINOPHEN 325 MG TAB PO PRN ×2 (02:34→16:32)
[2020-11-24] MEDS: HEPARIN SOD 5,000 UNIT/0.5 ML VIAL SQ SCH ×3 (06:15→20:49)
[2020-11-24] MEDS: INSULIN HUMAN NPH SC SCH (07:18)
[2020-11-24] MEDS ORDERED: POTASSIUM PHOS 3 MMOL/1 ML INFUSION IV STA (07:49)
--- NOTE | 2020-11-24 07:53 | Hospitalist Progress Note ---
Date of Service November 24, 2020 Assessment & Plan (1) Sepsis: (2) Pyelonephritis: Gram negative bacteremia Pt is a 65y/o F with PMH DM II, HTN, HLD, CVA, anxiety, depression presented to ER with C/O dysuria, hematuria x 4-5 days and nausea & vomiting x 3 days with left flank pain. Afebrile, tachycardic in ER 107, WBC: 18.9, UA consistent with infection CT abdomen/pelvis: 1. Asymmetric left perinephric and periureteral infiltration with possible urothelial thickening. The findings favor an infectious process such as left pyelonephritis/pyelitis. A recently passed calculus could appear similar although is considered less likely. 2. No bowel obstruction. 3. Left colon diverticulosis without evidence for acute diverticulitis. In ER given cefepime, 2L NSS Continued cefepime initially IVF Blood culture (11/20/2020) x2 - E.coli - switched Abx to Cipro Urine culture - positive for E. coli (marin-sensitive) Repeat blood cultx - NGTD Monitor labs (3) Stress hyperglycemia: Glucose 510. Normal pH. Anion gap:13, + ketones urine, beta hydroxybutyric acid unavailable secondary to hemolysis Patient not taking oral diabetes medicines for several days secondary to vomiting In ER received insulin and IV insulin drip started. Potassium total 20 MEQ IV, 2 L NSS Continued with IV insulin, glycemic pharmacist on board to assist in glycemic management Pt OFF IV insulin last A1c 7.8 in 06/2019, current A1c above 10%, consumer educator consulted Hold home oral meds while inpt Would benefit from insulin on DC (4) Diabetes mellitus, type II: (5) SAURAV (acute kidney injury): BUN: 56, creatinine: 2.5, BUN/creatinine ratio: 22. Baseline creatinine 0.9 with GFR>60 Hold oral diabetes medication Hold lisinopril/HCTZ IVF Monitor renal functions, avoid other nephrotoxic agents Nephrology consulted Cr improved, now 1.5 (6) Fall: Generalized weakness Patient with reported generalized weakness and unsteadiness. Reports fall. Likely secondary to underlying infection, hyperglycemia Left shoulder x-ray no acute fracture. No acute findings on CT head PT OT eval (7) Hyponatremia: Pseudohyponatremia in the setting of elevated blood glucose Na: 120, glucose of 501, Corrected Na: 128 Received 2L NSS in ER Na AM (11/21/2020) 128, now improved 132 - secondary to hypovolemia, improving w/ IV NS Monitor BMP Na normalized, currently 139 (8) HTN (hypertension): In ER initial was 124/101 down to 133/88 Hold lisinopril/HCTZ secondary to SAURAV Monitor BP (9) CVA (cerebral vascular accident): Continue Plavix, simvastatin (10) Anxiety and depression: Hold bupropion for now secondary to SAURAV. Decrease dose Vistaril secondary to SAURAV DVT Prophylaxis -SCDs DNR/DNI as per discussion with pt Follows with Dr Pimentel for routine care Admission and Anticipated Discharge Date Admission Date: November 20, 2020 Subjective Pt seen in follow up of gram negative bacteremia, pyelonephritis, uncontrolled DM type 2, hyponatremia, SAURAV Pt feels fatigued but improved Left flank pain improved but still somewhat bothersome No fever, nausea or vomiting Pt feels now that she ok w/ insulin on DC Review of Systems Review of Systems: All systems reviewed & are unremarkable except as noted in HPI & below Constitutional: + chills and + fatigue; no fever Respiratory: no cough and no dyspnea Cardiovascular: no chest pain and no palpitations Gastrointestinal: no abdominal pain, no nausea and no vomiting Genitourinary: + flank pain (improved) Physical Exam Physical Exam: General: obese female, +ill-appearing, fatigued Head: normocephalic, atraumatic Eyes: PERRL, EOM's intact, conjunctiva non-injected, anicteric ENT: normal inspection external ears, nose Neck: supple, trachea midline, non-tender to palpation Lungs: CTAB, no respiratory distress, no wheezing/rhonchi/rales CV: RRR no murmur, no pretibial edema Abd: normal BS, soft, + Left CVA (improved) Ext: no calf tenderness; no LE edema, moves extremities Neuro: A&O x 3, no focal deficits noted, somewhat flat affect Skin: warm, dry Results & Data Results & Data ([facility]) Vital Signs (Past 12 Hours) Vital Signs Temp Pulse Pulse Resp BP Pulse Ox 11/24/20 02:41 36.5 C 85 18 164/80 H 97 11/24/20 00:00 85 11/23/20 23:26 37.4 C 88 18 154/82 H 97 Laboratory Results 11/24/20 11/24/20 11/24/20 Range/Units 07:15 01:34 01:34 WBC 20.77 H (4.8-10.8) K/uL RBC 3.98 L (4.2-5.4) M/uL Hgb 10.5 L (12.0-16.0) g/dL Hct 31.7 L (37-47) % MCV 79.6 L (80-100) fL MCH 26.4 (25-34) pg MCHC 33.1 (32-36) g/dL RDW Std Deviation 42.5 (36.4-46.3) fL RDW Coeff of Jam 14.6 H (11.5-14.5) % Plt Count 344 (130-400) K/uL MPV 10.2 (7.4-10.4) fL Sodium 139 (136-145) mmol/L Potassium 3.4 L (3.5-5.1) mmol/L Chloride 110 H (98-107) mmol/L Carbon Dioxide 24 (21-32) mmol/L Anion Gap 5.0 (3-11) BUN 30 H (7-18) mg/dl Creatinine 1.52 H (0.6-1.2) mg/dl Est Cr Clr Drug Dosing 39.7 ml/min Est GFR ( Amer) 41.9 Est GFR (Non-Af Amer) 36.1 BUN/Creatinine Ratio 19.5 (10-20) Glucose 125 H (70-99) mg/dl POC Glucose 144 H (70-99) mg/dl Calcium 8.1 L (8.5-10.1) mg/dl Phosphorus 1.6 L (2.5-4.9) mg/dl Magnesium 1.7 L (1.8-2.4) mg/dl 11/23/20 11/23/20 11/23/20 Range/Units 20:22 16:35 11:19 WBC (4.8-10.8) K/uL RBC (4.2-5.4) M/uL Hgb (12.0-16.0) g/dL Hct (37-47) % MCV (80-100) fL MCH (25-34) pg MCHC (32-36) g/dL RDW Std Deviation (36.4-46.3) fL RDW Coeff of Jam (11.5-14.5) % Plt Count (130-400) K/uL MPV (7.4-10.4) fL Sodium (136-145) mmol/L Potassium (3.5-5.1) mmol/L Chloride (98-107) mmol/L Carbon Dioxide (21-32) mmol/L Anion Gap (3-11) BUN (7-18) mg/dl Creatinine (0.6-1.2) mg/dl Est Cr Clr Drug Dosing ml/min Est GFR ( Amer) Est GFR (Non-Af Amer) BUN/Creatinine Ratio (10-20) Glucose (70-99) mg/dl POC Glucose 126 H 125 H 126 H (70-99) mg/dl Calcium (8.5-10.1) mg/dl Phosphorus (2.5-4.9) mg/dl Magnesium (1.8-2.4) mg/dl 11/23/20 11/23/20 Range/Units 07:26 07:25 WBC (4.8-10.8) K/uL RBC (4.2-5.4) M/uL Hgb (12.0-16.0) g/dL Hct (37-47) % MCV (80-100) fL MCH (25-34) pg MCHC (32-36) g/dL RDW Std Deviation (36.4-46.3) fL RDW Coeff of Jam (11.5-14.5) % Plt Count (130-400) K/uL MPV (7.4-10.4) fL Sodium (136-145) mmol/L Potassium (3.5-5.1) mmol/L Chloride (98-107) mmol/L Carbon Dioxide (21-32) mmol/L Anion Gap (3-11) BUN (7-18) mg/dl Creatinine (0.6-1.2) mg/dl Est Cr Clr Drug Dosing ml/min Est GFR ( Amer) Est GFR (Non-Af Amer) BUN/Creatinine Ratio (10-20) Glucose (70-99) mg/dl POC Glucose 77 68 L* (70-99) mg/dl Calcium (8.5-10.1) mg/dl Phosphorus (2.5-4.9) mg/dl Magnesium (1.8-2.4) mg/dl Medications Administered Current Inpatient Medications Acetaminophen (Acetaminophen 325 Mg Tab) 650 mg PO Q4H PRN PRN Reason: Pain or Fever Stop: 12/20/20 20:34 Last Admin: 11/24/20 02:34 Dose: 650 mg Documented by: Clopidogrel Bisulfate (Clopidogrel Bisulfate 75 Mg Tab) 75 mg PO DAILY [facility]ID Stop: 12/21/20 08:59 Last Admin: 11/23/20 07:52 Dose: 75 mg Documented by: Dextrose (Dextrose 50% 50 Ml Syringe) 25 - 50 ml IV UD PRN; Protocol PRN Reason: Hypoglycemia Protocol Stop: 12/20/20 22:59 Glucagon (Glucagon For Inj 1 Mg Vial) 1 mg SQ UD PRN; Protocol PRN Reason: Hypoglycemia Protocol Stop: 12/20/20 22:59 Glucose (Glucose 40% Gel 15 Gm Tube) 15 - 30 gm PO UD PRN; Protocol PRN Reason: Hypoglycemia Protocol Stop: 12/20/20 22:59 Glucose (Glucose 10 Tabs/Tube) 4 - 8 tabs PO UD PRN; Protocol PRN Reason: Hypoglycemia Protocol Stop: 12/20/20 22:59 Heparin Sodium (Porcine) (Heparin Sod 5,000 Unit/0.5 Ml Vial) 5,000 units SQ Q8 DAVID Stop: 12/20/20 22:44 Last Admin: 11/24/20 06:15 Dose: 5,000 units Documented by: Hydroxyzine HCl (Hydroxyzine Hcl 25 Mg Tab) 25 mg PO HS PRN PRN Reason: Anxiety or Itching Stop: 12/22/20 16:55 Last Admin: 11/23/20 21:05 Dose: 25 mg Documented by: Ciprofloxacin (Cipro / D5w) 400 mg in 200 mls @ 100 mls/hr IV Q12H DAVID; Protocol Stop: 12/07/20 08:59 Last Infusion: 11/23/20 22:24 Dose: Infused Documented by: Magnesium Sulfate/Dextrose (Magnesium Sulfate / D5w) 1 gm in 100 mls @ 50 mls/hr IV ONE ONE Stop: 11/24/20 10:14 Insulin Aspart (Insulin Aspart 100 Units/Ml 3 Ml Pen) 0 units SC ACHS [facility]; Protocol Stop: 12/21/20 07:29 Last Admin: 11/23/20 20:49 Dose: Not Given Documented by: Insulin Glargine (Insulin Glargine Solostar 100 Units/Ml 3 Ml Pen) 20 units SC DAILY [facility] Stop: 12/23/20 08:59 Last Admin: 11/23/20 08:55 Dose: 20 units Documented by: Lidocaine (Lidocaine 5% 1 Patch) 1 patch TD QAM DAVID Stop: 12/22/20 09:29 Last Admin: 11/23/20 07:50 Dose: 1 patch Documented by: Miscellaneous (Carbohydrates For Hypoglycemia ) 15 - 30 gm PO UD PRN PRN Reason: Hypoglycemia Treatment Stop: 12/20/20 22:59 Miscellaneous (Remove Lidoderm Patch) 1 ea N/A DAILY@2100 [facility] Stop: 12/22/20 20:59 Last Admin: 11/23/20 20:25 Dose: 1 ea Documented by: Miscellaneous Information (Pharmacy Glycemic Mgmt Consult) 1 ea N/A UD PRN PRN Reason: Consult Stop: 12/20/20 20:57 Ondansetron HCl (Ondansetron Inj 2 Mg/Ml 2 Ml Vial) 4 mg IV Q6H PRN PRN Reason: Nausea Stop: 12/20/20 20:34 Last Admin: 11/22/20 17:24 Dose: 4 mg Documented by: Potassium Phosphate (Potassium Phos 3 Mmol/1 Ml Infusion) 21 mmol IV NOW STA Stop: 11/24/20 07:50 Saccharomyces Boulardii (Saccharomyces Boulardii 250 Mg Cap) 250 mg PO DAILY DAVID Stop: 12/22/20 09:29 Last Admin: 11/23/20 07:47 Dose: 250 mg Documented by: Simvastatin (Simvastatin 40 Mg Tab) 40 mg PO HS DAVID Stop: 12/20/20 20:59 Last Admin: 11/23/20 20:23 Dose: 40 mg Documented by: (1) Sepsis Sepsis acute organ dysfunction status: unspecified Sepsis type: sepsis due to unspecified organism Qualified Code(s): A41.9 - Sepsis, unspecified organism
[2020-11-24] MEDS: INSULIN ASPART 100 UNITS/ML 3 ML PEN SC SCH ×4 (08:02→20:49)
[2020-11-24] MEDS: INSULIN GLARGINE SOLOSTAR 100 UNITS/ML 3 ML PEN SC SCH (08:04)
[2020-11-24] MEDS: SACCHAROMYCES BOULARDII 250 MG CAP PO SCH (08:04)
[2020-11-24] MEDS: LIDOCAINE 5% 1 PATCH TD SCH (08:05)
[2020-11-24] MEDS: CLOPIDOGREL BISULFATE 75 MG TAB PO SCH (08:06)
[2020-11-24] MEDS ORDERED: POTASSIUM PHOSPHATE 21 MMOL in SODIUM CHLORIDE 0.9% 500 ML IV ONE (08:15)
[2020-11-24] MEDS ORDERED: MAGNESIUM SULFATE / D5W 1 GM/100 ML BAG IV ONE ×2 (08:15→11:00)
[2020-11-24] MEDS: CIPROFLOXACIN / D5W 400 MG/200 ML BAG IV SCH ×2 (08:21→20:59)
[2020-11-24] MEDS ORDERED: POTASSIUM CHLORIDE CRTAB 20 MEQ TABCR PO ONE (10:00)
--- NOTE | 2020-11-24 12:50 | Nephrology Progress Note ---
Date of Service November 24, 2020 Assessment & Plan (1) SAURAV (acute kidney injury): Patient with acute kidney injury due to ischemic ATN in setting of pyelonephritis and bacteremia. Creatinine is downtrending to 1.52 today from 1.6 yesterday. She has hypokalemia but other electrolytes are stable. -Agree with potassium chloride supplements -High potassium diet -Daily BMP -Avoid nephrotoxins (2) Pyelonephritis: Patient is receiving ciprofloxacin. E. coli tends to be resistant to ciprofloxacin. Consider changing to third-generation cephalosporin or infectious disease consult. renally dose antibiotics for current GFR. (3) HTN (hypertension): Blood pressure has been fluctuating. No need to aggressively lower blood pressure in setting of acute infection. Will consider BP meds if systolic is consistently above 170 Admission and Anticipated Discharge Date Admission Date: November 20, 2020 Subjective Seen in follow-up for acute kidney injury. She still has mild pain in the left flank. Still has leukocytosis. Review of Systems Review of Systems: All systems reviewed & are unremarkable except as noted in HPI & below Physical Exam Physical Exam: General exam: Appears comfortable, no acute distress HEENT: Pupils are equal and reactive to light Neck: No JVD, neck is supple trachea is midline Respiratory system: Clear breath sounds bilaterally. Gastrointestinal: Abdomen is soft, non distended, non tender, bowel sounds are present CVS: Regular rate and rhythm. No murmurs, rubs or gallops Musculoskeletal: No joint or muscle tenderness. Tenderness in the left flank Extremities: Non tender, no edema, peripheral pulses are present Neuro: Oriented, no tremors, no focal neurological deficits Skin: No rashes Results & Data ([facility]) Vital Signs (Past 12 Hours) Vital Signs Temp Pulse Pulse Resp BP Pulse Ox 11/24/20 08:10 36.6 C 90 20 154/85 H 98 11/24/20 08:00 86 11/24/20 02:41 36.5 C 85 18 164/80 H 97 Laboratory Results 11/24/20 01:34 11/24/20 11/24/20 01:34 01:34 WBC 20.77 H RBC 3.98 L MCV 79.6 L MCH 26.4 MCHC 33.1 RDW Std Deviation 42.5 RDW Coeff of Jam 14.6 H Plt Count 344 MPV 10.2 Phosphorus 1.6 L
[2020-11-24] MEDS: hydrOXYzine HCl 25 MG TAB PO PRN (19:49)
[2020-11-24] MEDS: SIMVASTATIN 40 MG TAB PO SCH (20:48)
[2020-11-25] MEDS: HEPARIN SOD 5,000 UNIT/0.5 ML VIAL SQ SCH ×3 (05:23→21:33)
[2020-11-25 06:06] LABS: Hematocrit (blood only) 32.9 % (37-47); Hemoglobin 10.9 g/dL (12.0-16.0); Mean Corpuscular Hemoglobin 26.5 pg (25-34); Mean Corpuscular Hgb Conc 33.1 g/dL (32-36); Platelet Count 434 K/uL (130-400); RDW Coefficient of Variation 14.8 % (11.5-14.5); RDW Standard Deviation 42.6 fL (36.4-46.3); Red Blood Count 4.11 M/uL (4.2-5.4); White Blood Count 19.22 K/uL (4.8-10.8)
[2020-11-25 06:48] LABS: BUN Creatinine Ratio 14.9 (10-20); Calcium 8.2 mg/dl (8.5-10.1); Creatinine Clr Calc Pharmacy 38.6 ml/min; Est GFR (African American) 40.9; Est GFR (Non-African American) 35.3; Magnesium 1.7 mg/dl (1.8-2.4); Phosphorus 2.7 mg/dl (2.5-4.9); Potassium 4.1 mmol/L (3.5-5.1)
[2020-11-25] MEDS ORDERED: hydrALAZINE HCL 25 MG TAB PO PRN (07:49)
[2020-11-25] MEDS ORDERED: MAGNESIUM SULFATE / D5W 1 GM/100 ML BAG IV ONE (08:00)
--- NOTE | 2020-11-25 08:18 | Hospitalist Progress Note ---
Date of Service November 25, 2020 Assessment & Plan (1) Sepsis: (2) Pyelonephritis: Gram negative bacteremia Pt is a 65y/o F with PMH DM II, HTN, HLD, CVA, anxiety, depression presented to ER with C/O dysuria, hematuria x 4-5 days and nausea & vomiting x 3 days with left flank pain. Afebrile, tachycardic in ER 107, WBC: 18.9, UA consistent with infection CT abdomen/pelvis: 1. Asymmetric left perinephric and periureteral infiltration with possible urothelial thickening. The findings favor an infectious process such as left pyelonephritis/pyelitis. A recently passed calculus could appear similar although is considered less likely. 2. No bowel obstruction. 3. Left colon diverticulosis without evidence for acute diverticulitis. In ER given cefepime, 2L NSS Continued cefepime initially IVF Blood culture (11/20/2020) x2 - E.coli - switched Abx to Cipro Urine culture - positive for E. coli (marin-sensitive) Repeat blood cultx - NGTD Monitor labs (3) Stress hyperglycemia: Glucose 510. Normal pH. Anion gap:13, + ketones urine, beta hydroxybutyric acid unavailable secondary to hemolysis Patient not taking oral diabetes medicines for several days secondary to vomiting In ER received insulin and IV insulin drip started. Potassium total 20 MEQ IV, 2 L NSS Continued with IV insulin, glycemic pharmacist on board to assist in glycemic management Pt OFF IV insulin last A1c 7.8 in 06/2019, current A1c above 10%, museum educator consulted Hold home oral meds while inpt Would benefit from insulin on DC (4) Diabetes mellitus, type II: (5) SAURAV (acute kidney injury): BUN: 56, creatinine: 2.5, BUN/creatinine ratio: 22. Baseline creatinine 0.9 with GFR>60 Hold oral diabetes medication Hold lisinopril/HCTZ IVF Monitor renal functions, avoid other nephrotoxic agents Nephrology consulted Cr improved, now 1.5 (6) Fall: Generalized weakness Patient with reported generalized weakness and unsteadiness. Reports fall. Likely secondary to underlying infection, hyperglycemia Left shoulder x-ray no acute fracture. No acute findings on CT head PT OT eval (7) Hyponatremia: Pseudohyponatremia in the setting of elevated blood glucose Na: 120, glucose of 501, Corrected Na: 128 Received 2L NSS in ER Na AM (11/21/2020) 128, now improved 132 - secondary to hypovolemia, improving w/ IV NS Monitor BMP Na normalized, currently 139 (8) HTN (hypertension): In ER initial was 124/101 down to 133/88 Hold lisinopril/HCTZ secondary to SAURAV Monitor BP Hydralazine prn ordered (9) CVA (cerebral vascular accident): Continue Plavix, simvastatin (10) Anxiety and depression: Hold bupropion for now secondary to SAURAV. Decrease dose Vistaril secondary to SAURAV DVT Prophylaxis: heparin subq DNR/DNI as per discussion with pt Follows with Dr Pimentel for routine care Pt's daughter Violetta, to be updated at [phone]. Admission and Anticipated Discharge Date Admission Date: November 20, 2020 Subjective Pt seen in follow up of gram negative bacteremia, pyelonephritis, uncontrolled DM type 2, hyponatremia, SAURAV Pt feels better today No acute events overnight Left flank pain improved but still somewhat bothersome No fever, nausea or vomiting Pt feels now that she ok w/ insulin on DC Pt would like her daughter updated at [phone] Review of Systems Review of Systems: All systems reviewed & are unremarkable except as noted in HPI & below Constitutional: + fatigue; no fever and no chills Respiratory: no cough and no dyspnea Cardiovascular: no chest pain and no palpitations Gastrointestinal: no abdominal pain, no nausea and no vomiting Genitourinary: + flank pain (improved) Physical Exam Physical Exam: General: obese female, +ill-appearing, fatigued Head: normocephalic, atraumatic Eyes: PERRL, EOM's intact, conjunctiva non-injected, anicteric ENT: normal inspection external ears, nose Neck: supple, trachea midline, non-tender to palpation Lungs: CTAB, no respiratory distress, no wheezing/rhonchi/rales CV: RRR no murmur, no pretibial edema Abd: normal BS, soft, + Left CVA (improved) Ext: no calf tenderness; no LE edema, moves extremities Neuro: A&O x 3, no focal deficits noted, somewhat flat affect Skin: warm, dry Results & Data Results & Data ([facility]) Vital Signs (Past 12 Hours) Vital Signs Temp Pulse Resp BP Pulse Ox 11/25/20 07:38 37.0 C 96 H 16 168/99 H 99 11/24/20 23:00 144/78 H 11/24/20 22:28 37 C 85 18 179/91 H 98 Laboratory Results 11/25/20 11/25/20 11/25/20 Range/Units 08:07 05:42 05:42 WBC 19.22 H (4.8-10.8) K/uL RBC 4.11 L (4.2-5.4) M/uL Hgb 10.9 L (12.0-16.0) g/dL Hct 32.9 L (37-47) % MCV 80.0 (80-100) fL MCH 26.5 (25-34) pg MCHC 33.1 (32-36) g/dL RDW Std Deviation 42.6 (36.4-46.3) fL RDW Coeff of Jam 14.8 H (11.5-14.5) % Plt Count 434 H (130-400) K/uL MPV 10.0 (7.4-10.4) fL Sodium 139 (136-145) mmol/L Potassium 4.1 D (3.5-5.1) mmol/L Chloride 107 (98-107) mmol/L Carbon Dioxide 24 (21-32) mmol/L Anion Gap 8.0 (3-11) BUN 23 H (7-18) mg/dl Creatinine 1.55 H (0.6-1.2) mg/dl Est Cr Clr Drug Dosing 38.6 ml/min Est GFR ( Amer) 40.9 Est GFR (Non-Af Amer) 35.3 BUN/Creatinine Ratio 14.9 (10-20) Glucose 195 H (70-99) mg/dl POC Glucose 216 H (70-99) mg/dl Calcium 8.2 L (8.5-10.1) mg/dl Phosphorus 2.7 D (2.5-4.9) mg/dl Magnesium 1.7 L (1.8-2.4) mg/dl 11/24/20 11/24/20 Range/Units 20:23 17:13 WBC (4.8-10.8) K/uL RBC (4.2-5.4) M/uL Hgb (12.0-16.0) g/dL Hct (37-47) % MCV (80-100) fL MCH (25-34) pg MCHC (32-36) g/dL RDW Std Deviation (36.4-46.3) fL RDW Coeff of Jam (11.5-14.5) % Plt Count (130-400) K/uL MPV (7.4-10.4) fL Sodium (136-145) mmol/L Potassium (3.5-5.1) mmol/L Chloride (98-107) mmol/L Carbon Dioxide (21-32) mmol/L Anion Gap (3-11) BUN (7-18) mg/dl Creatinine (0.6-1.2) mg/dl Est Cr Clr Drug Dosing ml/min Est GFR ( Amer) Est GFR (Non-Af Amer) BUN/Creatinine Ratio (10-20) Glucose (70-99) mg/dl POC Glucose 215 H 155 H (70-99) mg/dl Calcium (8.5-10.1) mg/dl Phosphorus (2.5-4.9) mg/dl Magnesium (1.8-2.4) mg/dl Medications Administered Current Inpatient Medications Acetaminophen (Acetaminophen 325 Mg Tab) 650 mg PO Q4H PRN PRN Reason: Pain or Fever Stop: 12/20/20 20:34 Last Admin: 11/24/20 16:32 Dose: 650 mg Documented by: Clopidogrel Bisulfate (Clopidogrel Bisulfate 75 Mg Tab) 75 mg PO DAILY [facility] Stop: 12/21/20 08:59 Last Admin: 11/24/20 08:06 Dose: 75 mg Documented by: Dextrose (Dextrose 50% 50 Ml Syringe) 25 - 50 ml IV UD PRN; Protocol PRN Reason: Hypoglycemia Protocol Stop: 12/20/20 22:59 Glucagon (Glucagon For Inj 1 Mg Vial) 1 mg SQ UD PRN; Protocol PRN Reason: Hypoglycemia Protocol Stop: 12/20/20 22:59 Glucose (Glucose 40% Gel 15 Gm Tube) 15 - 30 gm PO UD PRN; Protocol PRN Reason: Hypoglycemia Protocol Stop: 12/20/20 22:59 Glucose (Glucose 10 Tabs/Tube) 4 - 8 tabs PO UD PRN; Protocol PRN Reason: Hypoglycemia Protocol Stop: 12/20/20 22:59 Heparin Sodium (Porcine) (Heparin Sod 5,000 Unit/0.5 Ml Vial) 5,000 units SQ Q8 DAVID Stop: 12/20/20 22:44 Last Admin: 11/25/20 05:23 Dose: 5,000 units Documented by: Hydralazine HCl (Hydralazine Hcl 25 Mg Tab) 25 mg PO Q6H PRN PRN Reason: BP> 150 Stop: 12/25/20 07:59 Hydroxyzine HCl (Hydroxyzine Hcl 25 Mg Tab) 25 mg PO HS PRN PRN Reason: Anxiety or Itching Stop: 12/22/20 16:55 Last Admin: 11/24/20 19:49 Dose: 25 mg Documented by: Ciprofloxacin (Cipro / D5w) 400 mg in 200 mls @ 100 mls/hr IV Q12H [facility]; Protocol Stop: 12/07/20 08:59 Last Infusion: 11/24/20 22:55 Dose: Infused Documented by: Magnesium Sulfate/Dextrose (Magnesium Sulfate / D5w) 1 gm in 100 mls @ 50 mls/hr IV 0800 ONE Stop: 11/25/20 09:59 Insulin Aspart (Insulin Aspart 100 Units/Ml 3 Ml Pen) 0 units SC ACHS [facility]; Protocol Stop: 12/21/20 07:29 Last Admin: 11/24/20 20:49 Dose: 3 units Documented by: Insulin Glargine (Insulin Glargine Solostar 100 Units/Ml 3 Ml Pen) 0 units SC DAILY [facility]; Protocol Stop: 12/25/20 08:59 Lidocaine (Lidocaine 5% 1 Patch) 1 patch TD QAM [facility] Stop: 12/22/20 09:29 Last Admin: 11/24/20 08:05 Dose: 1 patch Documented by: Miscellaneous (Carbohydrates For Hypoglycemia ) 15 - 30 gm PO UD PRN PRN Reason: Hypoglycemia Treatment Stop: 12/20/20 22:59 Miscellaneous (Remove Lidoderm Patch) 1 ea N/A DAILY@2100 [facility] Stop: 12/22/20 20:59 Last Admin: 11/24/20 20:49 Dose: 1 ea Documented by: Miscellaneous Information (Pharmacy Glycemic Mgmt Consult) 1 ea N/A UD PRN PRN Reason: Consult Stop: 12/20/20 20:57 Ondansetron HCl (Ondansetron Inj 2 Mg/Ml 2 Ml Vial) 4 mg IV Q6H PRN PRN Reason: Nausea Stop: 12/20/20 20:34 Last Admin: 11/22/20 17:24 Dose: 4 mg Documented by: Saccharomyces Boulardii (Saccharomyces Boulardii 250 Mg Cap) 250 mg PO DAILY [facility] Stop: 12/22/20 09:29 Last Admin: 11/24/20 08:04 Dose: 250 mg Documented by: Simvastatin (Simvastatin 40 Mg Tab) 40 mg PO HS [facility] Stop: 12/20/20 20:59 Last Admin: 11/24/20 20:48 Dose: 40 mg Documented by: (1) Sepsis Sepsis acute organ dysfunction status: unspecified Sepsis type: sepsis due to unspecified organism Qualified Code(s): A41.9 - Sepsis, unspecified organism
[2020-11-25] MEDS: CLOPIDOGREL BISULFATE 75 MG TAB PO SCH (08:34)
[2020-11-25] MEDS: SACCHAROMYCES BOULARDII 250 MG CAP PO SCH (08:34)
[2020-11-25] MEDS: LIDOCAINE 5% 1 PATCH TD SCH (08:35)
[2020-11-25] MEDS: INSULIN ASPART 100 UNITS/ML 3 ML PEN SC SCH ×4 (09:08→21:18)
[2020-11-25] MEDS: INSULIN GLARGINE SOLOSTAR 100 UNITS/ML 3 ML PEN SC SCH (09:09)
[2020-11-25] MEDS: CIPROFLOXACIN / D5W 400 MG/200 ML BAG IV SCH ×2 (11:01→21:22)
--- NOTE | 2020-11-25 13:50 | Pharmacy Report ---
Pharmacy Glycemic Short Note 2 - Date of Service November 25, 2020 - Glycemic Short BSG Results (Last 24 hours): 11/24/20 11/24/20 11/25/20 17:13 20:23 05:42 Glucose 195 H POC Glucose 155 H 215 H 11/25/20 11/25/20 08:07 12:05 Glucose POC Glucose 216 H 207 H OUTPATIENT ANTIDIABETIC REGIMEN: * Glimepiride 6 mg PO daily * Metformin 1000 mg PO BIDM * A1c = 10.6% (11/21/20) ASSESSMENT: 11/25/20: * Ms Patel received a total of 41 units of insulin yesterday * 20 units basal + 21 units bolus * BSGs ranging from 125-215 mg/dL * Fasting BSG this AM was elevated - 215 mg/dL * Suspect that patient's insulin requirements are increasing as diet advances. * Pt will receive more Lantus today 11/19 elevated AM BSG. Novolog parameters tightened slightly with lunch to provide additional coverage. 11/21 * 65 yo F admitted secondary to Pyelonephritis. History of Type 2 Diabetes Mellitus on Glimepiride and Metformin at home. Previous A1c was 7.8% in June 2019 according to H&P. A1c this morning up to 10.6%. Patient reports not taking home oral medications for several days secondary to nausea and vomiting. Pharmacy was consulted last evening for Glycemic Management Assistance. * BSG upon admission was 510 mg/dL. She had a normal pH with anion gap of 13 and ketonuria. Beta hydroxybutyric acid was unavailable secondary to hemolysis. She was given a 3.5 unit IV insulin bolus followed by starting an insulin drip at 3.3 units/hr with a goal range of 150-250 mg/dL. * BSGs were as follows on drip: [phone] mg/dL * Insulin drip initially increased to 4 units/hr but stayed mostly steady at 2.4 units/hr overnight * Estimating patient's daily insulin requirements to be ~ 50-60 units/day based on drip rates over the final 8 hours * Gave a full weight and stress of 2 dose of Lantus this AM and transitioned patient off the insulin drip. Novolog was started based on a weight and stress of 3. * Given patient's SAURAV, clear liquid diet ordered, and being insulin-naive, I erred on the side of caution with initial loading dose of Lantus as well as Novolog parameters. May require tightening throughout the day. PLAN FOR INPATIENT GLYCEMIC CONTROL: * Hold outpatient oral diabetes medications * Basal insulin - * Lantus 25 units SQ qAM * Bolus insulin - * NovoLog per scale ACHS or Q6hrs while NPO * Goal Range: Low 110 mg/dL - High 140 mg/dL * Correction Factor: 20 mg/dL/unit * Nutritional / Prandial insulin per carb ratio of 1 unit per 7 grams CHO consumed PLAN FOR DISCHARGE: * HbA1c = 10.6% which demonstrates poor outpatient control of Type 2 Diabetes Mellitus. Given patient's age and comorbidities, a reasonable goal A1c might b e < 7.5%. * Patient will likely require insulin upon discharge from hospital. CDE has met with patient during admission, and pt is agreeable to starting an insulin regimen. * Suspect that it would be reasonable to start with Lantus 30 units SQ daily, with plans to titrate as an outpatient. * Continue Metformin. D/C Amaryl with initiation of Lantus. * Patient is fearful of hypoglycemia, as she lives alone. Reasonable goal might be glycemic improvement, without targeting strict control.
--- NOTE | 2020-11-25 17:11 | Nephrology Progress Note ---
Date of Service November 25, 2020 Assessment & Plan (1) SAURAV (acute kidney injury): Patient with acute kidney injury due to ischemic ATN in setting of pyelonephritis and bacteremia. Creatinine is plateau'd mid ones x 72 hrs; K better, other electrolytes are stable. -Agree with potassium chloride supplements -High potassium diet -Daily BMP -Avoid nephrotoxins (2) Pyelonephritis: Patient is receiving ciprofloxacin. f/u sensis. renally dose antibiotics for current GFR. (3) HTN (hypertension): Blood pressure has been fluctuating. No need to aggressively lower blood pressure in setting of acute infection. Will consider BP meds if systolic is consistently above 170; agree w/ adding prn hydralazine today; care coordinated with Dr Quiroz Admission and Anticipated Discharge Date Admission Date: November 20, 2020 Subjective noo c/o; eager to tell me how much better she feels and anxious that her OP living arrangements will change based on hospitalization; denies voiding concerns, ongoing flank pain, n/v or poor po, sob, edema. Review of Systems Review of Systems: All systems reviewed & are unremarkable except as noted in Subjective Physical Exam Constitutional: well developed, well nourished and + obese; no acute distress Eyes: EOM intact bilaterally ENMT: Ears: no external ear abnormality Nose: no external nose abnormality Mouth: + dry oral mucous membranes Neck: no nuchal rigidity Respiratory: normal respiratory effort Auscultation: lungs clear to auscultation bilaterally and + diminished lung sounds Cardiovascular: RRR, no murmur, no edema Gastrointestinal (Abdomen): Inspection/Auscultation: normal bowel sounds Percussion/Palpation: abdomen soft; abdomen nontender Musculoskeletal: Extremities: strength 5/5 throughout Skin: no rashes, warm and dry Neurologic: john, fluent speech, no tremor Psychiatric: Orientation: alert and oriented x 3 Affect: + anxious affect Results & Data ([facility]) Vital Signs (Past 12 Hours) Vital Signs Temp Pulse Resp BP BP Pulse Ox 11/25/20 15:24 36.4 C L 97 H 16 145/88 H 99 11/25/20 07:38 37.0 C 96 H 16 168/99 H 99 Laboratory Results 11/25/20 05:42 11/25/20 05:42
[2020-11-25] MEDS: hydrOXYzine HCl 25 MG TAB PO PRN (21:23)
[2020-11-25] MEDS: SIMVASTATIN 40 MG TAB PO SCH (21:23)
[2020-11-26] MEDS: HEPARIN SOD 5,000 UNIT/0.5 ML VIAL SQ SCH ×3 (06:04→21:07)
[2020-11-26 07:04] LABS: Hematocrit (blood only) 32.5 % (37-47); Hemoglobin 10.9 g/dL (12.0-16.0); Mean Corpuscular Hemoglobin 26.9 pg (25-34); Mean Corpuscular Hgb Conc 33.5 g/dL (32-36); Mean Corpuscular Volume 80.2 fL (80-100); Platelet Count 595 K/uL (130-400); RDW Standard Deviation 43.7 fL (36.4-46.3); Red Blood Count 4.05 M/uL (4.2-5.4); White Blood Count 16.71 K/uL (4.8-10.8)
--- NOTE | 2020-11-26 07:36 | Hospitalist Progress Note ---
Date of Service November 26, 2020 Assessment & Plan (1) Sepsis: (2) Pyelonephritis: Gram negative bacteremia Pt is a 65y/o F with PMH DM II, HTN, HLD, CVA, anxiety, depression presented to ER with C/O dysuria, hematuria x 4-5 days and nausea & vomiting x 3 days with left flank pain. Afebrile, tachycardic in ER 107, WBC: 18.9, UA consistent with infection CT abdomen/pelvis: 1. Asymmetric left perinephric and periureteral infiltration with possible urothelial thickening. The findings favor an infectious process such as left pyelonephritis/pyelitis. A recently passed calculus could appear similar although is considered less likely. 2. No bowel obstruction. 3. Left colon diverticulosis without evidence for acute diverticulitis. In ER given cefepime, 2L NSS Continued cefepime initially IVF Blood culture (11/20/2020) x2 - E.coli - switched Abx to Cipro Urine culture - positive for E. coli (marin-sensitive) Repeat blood cultx - NGTD Monitor labs (3) Stress hyperglycemia: Glucose 510. Normal pH. Anion gap:13, + ketones urine, beta hydroxybutyric acid unavailable secondary to hemolysis Patient not taking oral diabetes medicines for several days secondary to vomiting In ER received insulin and IV insulin drip started. 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 Baseline creatinine 0.9 with GFR>60 Hold oral diabetes medication Hold lisinopril/HCTZ IVF Monitor renal functions, avoid other nephrotoxic agents Nephrology consulted Cr improved, now 1.5 Will gradually restart diuretics (6) Fall: Generalized weakness Patient with reported generalized weakness and unsteadiness. Reports fall. Likely secondary to underlying infection, hyperglycemia Left shoulder x-ray no acute fracture. No acute findings on CT head PT OT eval (7) Hyponatremia: Pseudohyponatremia in the setting of elevated blood glucose Na: 120, glucose of 501, Corrected Na: 128 Received 2L NSS in ER Na AM (11/21/2020) 128, now improved 132 - secondary to hypovolemia, improving w/ IV NS Monitor BMP Na normalized, currently 141 (8) HTN (hypertension): In ER initial was 124/101 down to 133/88 Hold lisinopril/HCTZ secondary to SAURAV Monitor BP Will gradually restart diuretics Hydralazine prn ordered (9) CVA (cerebral vascular accident): Continue Plavix, simvastatin (10) Anxiety and depression: Hold bupropion for now secondary to SAURAV. Decrease dose Vistaril secondary to SAURAV DVT Prophylaxis: heparin subq DNR/DNI as per discussion with pt Follows with Dr Pimentel for routine care Pt's daughter Violetta, to be updated at [phone]. Admission and Anticipated Discharge Date Admission Date: November 20, 2020 Subjective Pt seen in follow up of gram negative bacteremia, pyelonephritis, uncontrolled DM type 2, hyponatremia, SAURAV Pt feels better today No acute events overnight Left flank pain mostly resolved No fever, nausea or vomiting Pt feels now that she is ok w/ insulin on DC, tried injecting insulin several times w/ nurses assistance Pt would like her daughter updated at [phone] Review of Systems Review of Systems: All systems reviewed & are unremarkable except as noted in HPI & below Constitutional: no fever and no chills Respiratory: no cough and no dyspnea Cardiovascular: no chest pain and no palpitations Gastrointestinal: no abdominal pain, no nausea and no vomiting Physical Exam Physical Exam: General: obese female, +ill-appearing, fatigued Head: normocephalic, atraumatic Eyes: PERRL, EOM's intact, conjunctiva non-injected, anicteric ENT: normal inspection external ears, nose Neck: supple, trachea midline, non-tender to palpation Lungs: CTAB, no respiratory distress, no wheezing/rhonchi/rales CV: RRR no murmur, no pretibial edema Abd: normal BS, soft, + Left CVA (resolved) Ext: no calf tenderness; no LE edema, moves extremities Neuro: A&O x 3, no focal deficits noted, somewhat flat affect Skin: warm, dry Results & Data Results & Data ([facility]) Vital Signs (Past 12 Hours) Vital Signs Temp Pulse Resp BP BP Pulse Ox 02/09/21 02:13 134/82 11/25/20 22:40 36.9 C 101 H 18 159/85 H 98 Laboratory Results 11/26/20 11/26/20 11/26/20 Range/Units 20:54 17:14 12:16 WBC (4.8-10.8) K/uL RBC (4.2-5.4) M/uL Hgb (12.0-16.0) g/dL Hct (37-47) % MCV (80-100) fL MCH (25-34) pg MCHC (32-36) g/dL RDW Std Deviation (36.4-46.3) fL RDW Coeff of Jam (11.5-14.5) % Plt Count (130-400) K/uL MPV (7.4-10.4) fL Sodium (136-145) mmol/L Potassium (3.5-5.1) mmol/L Chloride (98-107) mmol/L Carbon Dioxide (21-32) mmol/L Anion Gap (3-11) BUN (7-18) mg/dl Creatinine (0.6-1.2) mg/dl Est Cr Clr Drug Dosing ml/min Est GFR ( Amer) Est GFR (Non-Af Amer) BUN/Creatinine Ratio (10-20) Glucose (70-99) mg/dl POC Glucose 246 H 139 H 220 H (70-99) mg/dl Calcium (8.5-10.1) mg/dl Phosphorus (2.5-4.9) mg/dl Magnesium (1.8-2.4) mg/dl 11/26/20 11/26/20 11/26/20 Range/Units 08:04 06:33 06:33 WBC 16.71 H (4.8-10.8) K/uL RBC 4.05 L (4.2-5.4) M/uL Hgb 10.9 L (12.0-16.0) g/dL Hct 32.5 L (37-47) % MCV 80.2 (80-100) fL MCH 26.9 (25-34) pg MCHC 33.5 (32-36) g/dL RDW Std Deviation 43.7 (36.4-46.3) fL RDW Coeff of Jam 15.0 H (11.5-14.5) % Plt Count 595 H (130-400) K/uL MPV 10.0 (7.4-10.4) fL Sodium 141 (136-145) mmol/L Potassium 3.5 (3.5-5.1) mmol/L Chloride 107 (98-107) mmol/L Carbon Dioxide 24 (21-32) mmol/L Anion Gap 9.0 (3-11) BUN 19 H (7-18) mg/dl Creatinine 1.47 H (0.6-1.2) mg/dl Est Cr Clr Drug Dosing 40.7 ml/min Est GFR ( Amer) 43.6 Est GFR (Non-Af Amer) 37.6 BUN/Creatinine Ratio 12.9 (10-20) Glucose 191 H (70-99) mg/dl POC Glucose 211 H (70-99) mg/dl Calcium 9.2 (8.5-10.1) mg/dl Phosphorus 3.2 (2.5-4.9) mg/dl Magnesium 1.7 L (1.8-2.4) mg/dl Medications Administered Current Inpatient Medications Acetaminophen (Acetaminophen 325 Mg Tab) 650 mg PO Q4H PRN PRN Reason: Pain or Fever Stop: 12/20/20 20:34 Last Admin: 11/24/20 16:32 Dose: 650 mg Documented by: Clopidogrel Bisulfate (Clopidogrel Bisulfate 75 Mg Tab) 75 mg PO DAILY [facility] Stop: 12/21/20 08:59 Last Admin: 11/25/20 08:34 Dose: 75 mg Documented by: Dextrose (Dextrose 50% 50 Ml Syringe) 25 - 50 ml IV UD PRN; Protocol PRN Reason: Hypoglycemia Protocol Stop: 12/20/20 22:59 Glucagon (Glucagon For Inj 1 Mg Vial) 1 mg SQ UD PRN; Protocol PRN Reason: Hypoglycemia Protocol Stop: 12/20/20 22:59 Glucose (Glucose 40% Gel 15 Gm Tube) 15 - 30 gm PO UD PRN; Protocol PRN Reason: Hypoglycemia Protocol Stop: 12/20/20 22:59 Glucose (Glucose 10 Tabs/Tube) 4 - 8 tabs PO UD PRN; Protocol PRN Reason: Hypoglycemia Protocol Stop: 12/20/20 22:59 Heparin Sodium (Porcine) (Heparin Sod 5,000 Unit/0.5 Ml Vial) 5,000 units SQ Q8 DAVID Stop: 12/20/20 22:44 Last Admin: 11/26/20 06:04 Dose: 5,000 units Documented by: Hydralazine HCl (Hydralazine Hcl 25 Mg Tab) 25 mg PO Q6H PRN PRN Reason: BP> 150 Stop: 12/25/20 07:59 Last Admin: 11/25/20 08:41 Dose: 25 mg Documented by: Hydroxyzine HCl (Hydroxyzine Hcl 25 Mg Tab) 25 mg PO HS PRN PRN Reason: Anxiety or Itching Stop: 12/22/20 16:55 Last Admin: 11/25/20 21:23 Dose: 25 mg Documented by: Ciprofloxacin (Cipro / D5w) 400 mg in 200 mls @ 100 mls/hr IV Q12H [facility]; Protocol Stop: 12/07/20 08:59 Last Infusion: 11/25/20 23:39 Dose: Infused Documented by: Insulin Aspart (Insulin Aspart 100 Units/Ml 3 Ml Pen) 0 units SC ACHS [facility]; Protocol Stop: 12/21/20 07:29 Last Admin: 11/25/20 21:18 Dose: 8 units Documented by: Insulin Glargine (Insulin Glargine Solostar 100 Units/Ml 3 Ml Pen) 0 units SC DAILY [facility]; Protocol Stop: 12/25/20 08:59 Last Admin: 11/25/20 09:09 Dose: 25 units Documented by: Lidocaine (Lidocaine 5% 1 Patch) 1 patch TD QAM [facility] Stop: 12/22/20 09:29 Last Admin: 11/25/20 08:35 Dose: 1 patch Documented by: Miscellaneous (Carbohydrates For Hypoglycemia ) 15 - 30 gm PO UD PRN PRN Reason: Hypoglycemia Treatment Stop: 12/20/20 22:59 Miscellaneous (Remove Lidoderm Patch) 1 ea N/A DAILY@2100 [facility] Stop: 12/22/20 20:59 Last Admin: 11/25/20 21:23 Dose: 1 ea Documented by: Miscellaneous Information (Pharmacy Glycemic Mgmt Consult) 1 ea N/A UD PRN PRN Reason: Consult Stop: 12/20/20 20:57 Ondansetron HCl (Ondansetron Inj 2 Mg/Ml 2 Ml Vial) 4 mg IV Q6H PRN PRN Reason: Nausea Stop: 12/20/20 20:34 Last Admin: 11/22/20 17:24 Dose: 4 mg Documented by: Saccharomyces Boulardii (Saccharomyces Boulardii 250 Mg Cap) 250 mg PO DAILY [facility] Stop: 12/22/20 09:29 Last Admin: 11/25/20 08:34 Dose: 250 mg Documented by: Simvastatin (Simvastatin 40 Mg Tab) 40 mg PO HS DAVID Stop: 12/20/20 20:59 Last Admin: 11/25/20 21:23 Dose: 40 mg Documented by: (1) Sepsis Sepsis acute organ dysfunction status: unspecified Sepsis type: sepsis due to unspecified organism Qualified Code(s): A41.9 - Sepsis, unspecified organism
[2020-11-26 07:37] LABS: BUN Creatinine Ratio 12.9 (10-20); Calcium 9.2 mg/dl (8.5-10.1); Creatinine Clr Calc Pharmacy 40.7 ml/min; Est GFR (African American) 43.6; Est GFR (Non-African American) 37.6; Magnesium 1.7 mg/dl (1.8-2.4); Phosphorus 3.2 mg/dl (2.5-4.9); Potassium 3.5 mmol/L (3.5-5.1)
[2020-11-26] MEDS: SACCHAROMYCES BOULARDII 250 MG CAP PO SCH (09:00)
[2020-11-26] MEDS: CLOPIDOGREL BISULFATE 75 MG TAB PO SCH (09:00)
[2020-11-26] MEDS: LIDOCAINE 5% 1 PATCH TD SCH (09:03)
[2020-11-26] MEDS: CIPROFLOXACIN / D5W 400 MG/200 ML BAG IV SCH (09:06)
[2020-11-26] MEDS: INSULIN ASPART 100 UNITS/ML 3 ML PEN SC SCH ×4 (09:52→21:08)
[2020-11-26] MEDS: INSULIN GLARGINE SOLOSTAR 100 UNITS/ML 3 ML PEN SC SCH (09:56)
--- NOTE | 2020-11-26 13:27 | Pharmacy Report ---
Pharmacy Glycemic Short Note 2 - Date of Service November 26, 2020 - Glycemic Short BSG Results (Last 24 hours): 11/25/20 11/25/20 11/26/20 17:12 20:37 06:33 Glucose 191 H POC Glucose 93 193 H 11/26/20 11/26/20 08:04 12:16 Glucose POC Glucose 211 H 220 H OUTPATIENT ANTIDIABETIC REGIMEN: * Glimepiride 6 mg PO daily * Metformin 1000 mg PO BIDM * A1c = 10.6% (11/21/20) ASSESSMENT: 11/26/20: * Pt received a total of 54 units of insulin yesterday * 25 units basal + 29 units bolus * BSGs ranging from 93-216 mg/dL * Fasting BSG this AM was elevated - 211 mg/dL * Suspect that patient's insulin requirements are increasing as diet advances. * Lantus scale increased again this morning. Novolog parameters adjusted slightly. 11/25 * Ms Patel received a total of 41 units of insulin yesterday * 20 units basal + 21 units bolus * BSGs ranging from 125-215 mg/dL * Fasting BSG this AM was elevated - 215 mg/dL * Suspect that patient's insulin requirements are increasing as diet advances. * Pt will receive more Lantus today 11/19 elevated AM BSG. Novolog parameters tightened slightly with lunch to provide additional coverage. 11/21 * 65 yo F admitted secondary to Pyelonephritis. History of Type 2 Diabetes Mellitus on Glimepiride and Metformin at home. Previous A1c was 7.8% in June 2019 according to H&P. A1c this morning up to 10.6%. Patient reports not taking home oral medications for several days secondary to nausea and vomiting. Pharmacy was consulted last evening for Glycemic Management Assistance. * BSG upon admission was 510 mg/dL. She had a normal pH with anion gap of 13 and ketonuria. Beta hydroxybutyric acid was unavailable secondary to hemolysis. She was given a 3.5 unit IV insulin bolus followed by starting an insulin drip at 3.3 units/hr with a goal range of 150-250 mg/dL. * BSGs were as follows on drip: [phone] mg/dL * Insulin drip initially increased to 4 units/hr but stayed mostly steady at 2.4 units/hr overnight * Estimating patient's daily insulin requirements to be ~ 50-60 units/day based on drip rates over the final 8 hours * Gave a full weight and stress of 2 dose of Lantus this AM and transitioned patient off the insulin drip. Novolog was started based on a weight and stress of 3. * Given patient's SAURAV, clear liquid diet ordered, and being insulin-naive, I erred on the side of caution with initial loading dose of Lantus as well as Novolog parameters. May require tightening throughout the day. PLAN FOR INPATIENT GLYCEMIC CONTROL: * Hold outpatient oral diabetes medications * Resume Metformin when renal function has improved to baseline. * Basal insulin - * Lantus 30 units SQ qAM * Bolus insulin - * NovoLog per scale ACHS or Q6hrs while NPO * Goal Range: Low 110 mg/dL - High 140 mg/dL * Correction Factor: 25 mg/dL/unit * Nutritional / Prandial insulin per carb ratio of 1 unit per 7 grams CHO consumed PLAN FOR DISCHARGE: * HbA1c = 10.6% which demonstrates poor outpatient control of Type 2 Diabetes Mellitus. Given patient's age and comorbidities, a reasonable goal A1c might be < 7.5%. * Patient will likely require insulin upon discharge from hospital. CDE has met with patient during admission, and pt is agreeable to starting an insulin regimen. * Suspect that it would be reasonable to start with Lantus 30-40 units SQ daily, with plans to titrate as an outpatient. * Continue Metformin (if/when renal function returns to baseline). D/C Amaryl with initiation of Lantus. * Patient is fearful of hypoglycemia, as she lives alone. Reasonable goal might be glycemic improvement, without targeting strict control.
--- NOTE | 2020-11-26 15:26 | Nephrology Progress Note ---
Date of Service November 26, 2020 Assessment & Plan (1) SAURAV (acute kidney injury): Patient with acute kidney injury due to ischemic ATN in setting of pyelonephritis and E coli bacteremia; baseline creatinine unclear. Creatinine is plateau'd mid ones x 72 hrs; K better, other electrolytes are stable. her baseline creatinine in 2019 was 0.9. then a gap in labs until Nov 2020/this admission, when she presented w/ creatinine 2.6. -Daily BMP -Avoid nephrotoxins NEeds f/u in nephro clinic at d/c; video visit OK w/ or w/ Dr Parisi or w/ GIGI Lopez; some concerns about nonadherence given A1c 10% and increase in creatinine w/o interval labs (2) Pyelonephritis: Patient is receiving ciprofloxacin. f/u sensis. renally dose antibiotics for current GFR. (3) HTN (hypertension): Blood pressure has been fluctuating. No need to aggressively lower blood pressure in setting of acute infection. -cont hydralazine -will add lisinopirl 10 mg daily for now and cont to hold hctz -pt very anxious to resume prior OP regimen but will reintroduce gradually Care coordinated w/ Dr Quiroz. Admission and Anticipated Discharge Date Admission Date: November 20, 2020 Physical Exam Constitutional: well developed, well nourished and + obese; no acute distress Eyes: EOM intact bilaterally ENMT: Ears: no external ear abnormality Nose: no external nose abnormality Mouth: + dry oral mucous membranes Neck: no nuchal rigidity Respiratory: normal respiratory effort Auscultation: lungs clear to auscultation bilaterally and + diminished lung sounds Cardiovascular: RRR, no murmur, no edema Gastrointestinal (Abdomen): Inspection/Auscultation: normal bowel sounds Percussion/Palpation: abdomen soft; abdomen nontender Musculoskeletal: Extremities: strength 5/5 throughout Skin: no rashes, warm and dry Psychiatric: Orientation: alert and oriented x 3 Affect: + anxious affect Results & Data ([facility]) Vital Signs (Past 12 Hours) Vital Signs Temp Pulse Resp BP Pulse Ox 11/26/20 07:46 36.4 C L 84 16 149/88 H 97 Laboratory Results 11/26/20 06:33 11/26/20 06:33
[2020-11-26] MEDS ORDERED: Nursing to Pharmacy Communication SCH (15:45)
[2020-11-26] MEDS: ACETAMINOPHEN 325 MG TAB PO PRN ×2 (15:51→21:04)
[2020-11-26] MEDS: lisinopril 10 MG TAB PO SCH (16:09)
[2020-11-26] MEDS: CIPROFLOXACIN 500 MG TAB PO SCH (21:06)
[2020-11-26] MEDS: SIMVASTATIN 40 MG TAB PO SCH (21:07)
[2020-11-26] MEDS: hydrOXYzine HCl 25 MG TAB PO PRN (21:28)
[2020-11-27] MEDS: ACETAMINOPHEN 325 MG TAB PO PRN (03:36)
[2020-11-27] MEDS ORDERED: MELATONIN 3 MG TAB PO PRN (04:38)
[2020-11-27 06:31] LABS: Hematocrit (blood only) 30.8 % (37-47); Hemoglobin 10.1 g/dL (12.0-16.0); Mean Corpuscular Hemoglobin 26.6 pg (25-34); Mean Corpuscular Hgb Conc 32.8 g/dL (32-36); Mean Corpuscular Volume 81.3 fL (80-100); Platelet Count 655 K/uL (130-400); RDW Coefficient of Variation 15.3 % (11.5-14.5); RDW Standard Deviation 44.9 fL (36.4-46.3); Red Blood Count 3.79 M/uL (4.2-5.4); White Blood Count 17.47 K/uL (4.8-10.8)
[2020-11-27] MEDS: HEPARIN SOD 5,000 UNIT/0.5 ML VIAL SQ SCH ×2 (06:31→13:40)
[2020-11-27 07:10] LABS: BUN Creatinine Ratio 13.5 (10-20); Calcium 8.7 mg/dl (8.5-10.1); Creatinine Clr Calc Pharmacy 44.3 ml/min; Est GFR (African American) 48.3; Est GFR (Non-African American) 41.7; Potassium 4.2 mmol/L (3.5-5.1)
[2020-11-27] MEDS: SACCHAROMYCES BOULARDII 250 MG CAP PO SCH (08:22)
[2020-11-27] MEDS: CIPROFLOXACIN 500 MG TAB PO SCH (08:23)
[2020-11-27] MEDS: lisinopril 10 MG TAB PO SCH (08:23)
[2020-11-27] MEDS: LIDOCAINE 5% 1 PATCH TD SCH (08:23)
[2020-11-27] MEDS: CLOPIDOGREL BISULFATE 75 MG TAB PO SCH (08:23)
[2020-11-27] MEDS: INSULIN ASPART 100 UNITS/ML 3 ML PEN SC SCH ×3 (09:10→18:00)
[2020-11-27] MEDS: INSULIN GLARGINE SOLOSTAR 100 UNITS/ML 3 ML PEN SC SCH (09:13)
--- NOTE | 2020-11-27 09:35 | Nephrology Progress Note ---
Date of Service November 27, 2020 Assessment & Plan (1) SUARAV (acute kidney injury): Patient with acute kidney injury due to ischemic ATN in setting of pyelonephritis and E coli bacteremia; baseline creatinine unclear. Creatinine is plateau'd mid ones x 72 hrs; K better, other electrolytes are stable. her baseline creatinine in 2019 was 0.9. then a gap in labs until Nov 2020/this admission, when she presented w/ creatinine 2.6. -Daily BMP -Avoid nephrotoxins >>>needs f/u in nephro clinic at d/c; video visit OK w/ or w/ Dr Parisi or w/ GIGI Lopez; some concerns about nonadherence given A1c 10% and increase in creatinine w/o interval labs (2) Pyelonephritis: Patient is receiving ciprofloxacin. f/u sensis. renally dose antibiotics for current GFR. (3) HTN (hypertension): Blood pressure has been fluctuating. No need to aggressively lower blood pressure in setting of acute infection. -cont hydralazine prn -resumed OP hctz / lisinopril doses Care coordinated w/ Dr Diop; will sign off; pls call if ? Admission and Anticipated Discharge Date Admission Date: November 20, 2020 Subjective no c/o sob, n/v, voidign concerns today. anxious for d/c. seen on rounds at 1045 approx this am Review of Systems Review of Systems: All systems reviewed & are unremarkable except as noted in Subjective Physical Exam Constitutional: well developed, well nourished and + obese; no acute distress Eyes: EOM intact bilaterally ENMT: Ears: no external ear abnormality Nose: no external nose abnormality Mouth: + dry oral mucous membranes Neck: no nuchal rigidity Respiratory: normal respiratory effort Auscultation: lungs clear to auscultation bilaterally and + diminished lung sounds Cardiovascular: RRR, no murmur, no edema Gastrointestinal (Abdomen): Inspection/Auscultation: normal bowel sounds Percussion/Palpation: abdomen soft; abdomen nontender Musculoskeletal: Extremities: strength 5/5 throughout Skin: no rashes, warm and dry Psychiatric: Orientation: alert and oriented x 3 Affect: + anxious affect Results & Data ([facility]) Vital Signs (Past 12 Hours) Vital Signs Temp Pulse Resp BP Pulse Ox 11/27/20 07:29 36.7 C 83 16 148/90 H 97 Laboratory Results 11/27/20 06:09 11/27/20 06:09
--- NOTE | 2020-11-27 10:25 | Pharmacy Report ---
Pharmacy Glycemic Short Note 2 - Date of Service November 27, 2020 - Glycemic Short BSG Results (Last 24 hours): 11/26/20 11/26/20 11/26/20 12:16 17:14 20:54 Glucose POC Glucose 220 H 139 H 246 H 11/27/20 11/27/20 06:09 08:09 Glucose 186 H POC Glucose 197 H OUTPATIENT ANTIDIABETIC REGIMEN: * Glimepiride 6 mg PO daily * Metformin 1000 mg PO BIDM * A1c = 10.6% (11/21/20) ASSESSMENT: 11/27/20: * Pt received a total of 57 units of insulin yesterday * 30 units basal + 27 units bolus * BSGs ranging from 139-246 mg/dL * Fasting BSG this AM was elevated - 197 mg/dL * Lantus scale increased again this morning. Novolog parameters adjusted slightly. 11/26 * Pt received a total of 54 units of insulin yesterday * 25 units basal + 29 units bolus * BSGs ranging from 93-216 mg/dL * Fasting BSG this AM was elevated - 211 mg/dL * Suspect that patient's insulin requirements are increasing as diet advances. * Lantus scale increased again this morning. Novolog parameters adjusted slightly. 11/25 * Ms Patel received a total of 41 units of insulin yesterday * 20 units basal + 21 units bolus * BSGs ranging from 125-215 mg/dL * Fasting BSG this AM was elevated - 215 mg/dL * Suspect that patient's insulin requirements are increasing as diet advances. * Pt will receive more Lantus today 11/19 elevated AM BSG. Novolog parameters tightened slightly with lunch to provide additional coverage. 11/21 * 65 yo F admitted secondary to Pyelonephritis. History of Type 2 Diabetes Mellitus on Glimepiride and Metformin at home. Previous A1c was 7.8% in June 2019 according to H&P. A1c this morning up to 10.6%. Patient reports not taking home oral medications for several days secondary to nausea and vomiting. Pharmacy was consulted last evening for Glycemic Management Assistance. * BSG upon admission was 510 mg/dL. She had a normal pH with anion gap of 13 and ketonuria. Beta hydroxybutyric acid was unavailable secondary to hemolysis. She was given a 3.5 unit IV insulin bolus followed by starting an insulin drip at 3.3 units/hr with a goal range of 150-250 mg/dL. * BSGs were as follows on drip: [phone] mg/dL * Insulin drip initially increased to 4 units/hr but stayed mostly steady at 2.4 units/hr overnight * Estimating patient's daily insulin requirements to be ~ 50-60 units/day based on drip rates over the final 8 hours * Gave a full weight and stress of 2 dose of Lantus this AM and transitioned patient off the insulin drip. Novolog was started based on a weight and stress of 3. * Given patient's SAURAV, clear liquid diet ordered, and being insulin-naive, I erred on the side of caution with initial loading dose of Lantus as well as Novolog parameters. May require tightening throughout the day. PLAN FOR INPATIENT GLYCEMIC CONTROL: * Hold outpatient oral diabetes medications * Resume Metformin when renal function has improved to baseline. * Basal insulin - * Lantus 30 units SQ qAM * Bolus insulin - * NovoLog per scale ACHS or Q6hrs while NPO * Goal Range: Low 110 mg/dL - High 140 mg/dL * Correction Factor: 25 mg/dL/unit * Nutritional / Prandial insulin per carb ratio of 1 unit per 7 grams CHO consumed PLAN FOR DISCHARGE: * HbA1c = 10.6% which demonstrates poor outpatient control of Type 2 Diabetes Mellitus. Given patient's age and comorbidities, a reasonable goal A1c might be < 7.5%. * Patient will likely require insulin upon discharge from hospital. CDE has met with patient during admission, and pt is agreeable to starting an insulin regimen. * Suspect that it would be reasonable to start with Lantus 30-40 units SQ daily, with plans to titrate as an outpatient. * Continue Metformin (if/when renal function returns to baseline). D/C Amaryl with initiation of Lantus. * Patient is fearful of hypoglycemia, as she lives alone. Reasonable goal might be glycemic improvement, without targeting strict control.
[2020-11-27] MEDS ORDERED: hydroCHLOROthiazide 25 MG TAB PO SCH (10:30)
--- NOTE | 2020-11-27 14:12 | Hospitalist Progress Note ---
Date of Service November 27, 2020 Assessment & Plan (1) Sepsis: (2) Pyelonephritis: Gram Negative bacteremia Present to the ER with C/O dysuria, hematuria x 4-5 days and nausea & vomiting x 3 days with left flank pain. On admission she was found afebrile, tachycardic in ER 107, WBC: 18.9, UA consistent with infection CT abd/pelvis on admission showed asymmetric left perinephric and periureteral infiltration with possible urothelial thickening. The findings favor an infecti ous process such as left pyelonephritis/pyelitis Received IV cefepime and IVF on admission Urine cx positive for E.Coli Blood cx on 11/20/20- Grew Ecoli Repeat blood cx negative Will monitor CBC IV Cefepime was changed to Cipro Will continue PO cipro to complete 14 days course of antibiotic (3) Diabetes mellitus, type II: (4) Stress hyperglycemia: Glucose on admission 510. Normal pH. Anion gap:13, + ketones urine, beta hydroxybutyric acid unavailable secondary to hemolysis Patient not taking oral diabetes medicines for several days secondary to vomiting Most recent Hba1c 10.6 In ER received insulin and IV insulin drip started. Potassium total 20 MEQ IV, 2 L NSS Pharmacy was consulted for glycemic management for IV insulin drip Will resume metformin on discharge and discontinue glimepride due to increase risk of hypoglycemia while on insulin case discussed with Pharmacy that recommended to discharge on Lantus 40 unit daily with close follow up for titrating. Follow up diabetic management outpatient at [facility] clinic Continue monitor BS (5) SAURAV (acute kidney injury): BUN: 56, creatinine: 2.5, BUN/creatinine ratio: 22. Baseline creatinine 0.9 with GFR>60 Hold lisinopril/HCTZ and Metformin on admission Received IVF and creatinine continue to improve Continue to avoid other nephrotoxic agents Nephrology consulted Creatinine 1.3 today HCTZ and Lisinopril resumed Ok from nephrology standpoint to discharge home Will repeat BMP in 1 week (6) Fall: Generalized weakness Patient with reported generalized weakness and unsteadiness. Reports fall. Likely secondary to underlying infection, hyperglycemia Left shoulder x-ray no acute fracture. No acute findings on CT head Refused inpatient rehab or home health services Continue PT./OT while inpatient (7) Hyponatremia: Pseudohyponatremia in the setting of elevated blood glucose Na: 120, glucose of 501, Corrected Na: 128 Received 2L NSS in ER Na AM (11/21/2020) 128, now improved 132 Na normalized, currently 141 (8) HTN (hypertension): BP has been fluctuated BP improved Lisinopril/HCTZ was held due to SAURAV BP meds have been resumed Monitor BP (9) CVA (cerebral vascular accident): Continue Plavix, simvastatin (10) Anxiety and depression: Hold bupropion for now secondary to SAURAV. Decrease dose Vistaril secondary to SAURAV DVT Prophylaxis: heparin subq CODE Status DNR/DNI Follows with Dr Pimentel for routine care Pt's daughter Violetta, to be updated at [phone].(Pt did not want to give me permission to call her daughter today ) Admission and Anticipated Discharge Date Admission Date: November 20, 2020 Subjective Pt was seen and examined for follow up gram negative bacteremia, pyelonephritis, uncontrolled DM type 2, hyponatremia, SAURAV Lying in bed with no distress. Pt said that she feels great She said that she is able to administer the insulin.She would like to go home today She does not want me to contact her daughter because she said that her daughter is busy and working at home Spoke to nurse and nursing staff said that pt was able to give herself the insulin Denies any chest pain, palpitation, dizziness and SOB Physical Exam Physical Exam: General- No acute distress Head- atraumatic Eyes- PERRL, EOMI, ENT- oropharynx clear Neck- supple, no JVD Lungs- clear to auscultation Heart- regular rhythm; no murmur Abdomen- normal bowel sounds, soft, nontender Extremities- no calf tenderness Neuro- alert, oriented x 3; PERRL, EOMI; no facial palsy; no dysarthria Skin- warm & dry Results & Data Results & Data ([facility]) Vital Signs (Past 12 Hours) Vital Signs Temp Pulse Resp BP Pulse Ox 11/27/20 07:29 36.7 C 83 16 148/90 H 97 (1) Sepsis Sepsis acute organ dysfunction status: unspecified Sepsis type: sepsis due to unspecified organism Qualified Code(s): A41.9 - Sepsis, unspecified organism
--- NOTE | 2020-12-02 08:18 | Discharge Summary ---
Date of Service November 27, 2020 Admission HPI Per Admitting Provider Pt is 65y/o F with PMH DM II, HTN, HLD, CVA, anxiety, depression presented to ER with complaint of nausea vomiting x 3 days. Patient states 4 to 5 days ago started with dysuria and hematuria. 3 days ago started with nausea and vomiting. Reports unable to retain fluids/food or her medications past couple of days. Complains of left flank pain and left lower quadrant pain. Also complains of chills. Denies any known fever. Patient states tried taking vinegar water to treat urinary symptoms without relief. She states past couple days has been feeling off balance and generalized weakness and reports that she fell. Complains of discomfort to left shoulder. Denies any other injury. Denies diaphoresis, N/V/D/C, JONES, syncope, vision changes, neck pain, CP, SOB, orthopnea, palpitations, cough, sore throat, choking, otalgia, rhinorrhea, paresthesias, extremity edema, rashes. Admission Exam Per Admitting Provider General: no distress, obese Head: normocephalic, atraumatic Eyes: hard of hearing, PERRL, EOM's intact, conjunctiva non-injected, anicteric ENT: normal inspection external ears, nose, mucous membranes dry Neck: supple, trachea midline, non-tender to palpation Lungs: clear, no respiratory distress, no wheezing/rhonchi/rales CV: tachycardia at 110, regular rhythm, no murmur, no pretibial edema Abd: normal BS, soft, + tenderness to palpation left flank and Left CVA Ext: no cyanosis or erythema, no calf tenderness; left anterior shoulder with tenderness to palpation with active ROM; distal pulses palpable Neuro: A&O x 3, no focal deficits noted, somewhat flat affect Skin: warm, dry Principal Diagnosis Sepsis Pyelonephritis Gram Negative bacteremia Diabetes mellitus, type II: Stress hyperglycemia: SAURAV (acute kidney injury): Fall: Generalized weakness Hyponatremia:HTN (hypertension): Discharge Exam General- No acute distress Head- atraumatic Eyes- PERRL, EOMI, ENT- oropharynx clear Neck- supple, no JVD Lungs- clear to auscultation Heart- regular rhythm; no murmur Abdomen- normal bowel sounds, soft, nontender Extremities- no calf tenderness Neuro- alert, oriented x 3; PERRL, EOMI; no facial palsy; no dysarthria Skin- warm & dry Discharge Data Allergies Allergy/AdvReac Type Severity Reaction Status Date / Time Penicillins Allergy Unknown Unknown Verified 11/20/20 17:30 phenytoin Allergy Unknown Hives Verified 11/20/20 17:30 Consultations 11/20/20 17:25 ED Decision to Admit Stat Ordered Studies 11/20/20 16:05 CT head/brain wo con Stat 11/20/20 16:27 CT abd pelvis wo con Stat CT OF THE ABDOMEN AND PELVIS WITHOUT CONTRAST CLINICAL HISTORY: Left-sided abdominal pain. COMPARISON STUDY: No previous studies for comparison. TECHNIQUE: Axial images of the abdomen and pelvis were obtained without IV contrast. Images were reviewed in the axial, sagittal, and coronal planes. Automated exposure control was utilized for the study. A dose lowering technique was utilized adhering to the principles of ALARA. FINDINGS: Lung bases are unremarkable. No pneumatosis, free air or portal venous gas is present. There is a sebaceous cyst of the right lower back. No renal, ureteral or bladder calculi are present. There is no hydronephrosis or hydroureter. There is asymmetric mild left perinephric infiltration. The left kidney may be enlarged. There is possible wall thickening of the left ureter. No renal fluid collection is identified on this unenhanced examination. Evaluation of the abdomen and pelvis is suboptimal on this unenhanced examination. A 2.1 cm low-attenuation left adrenal nodule favors an adenoma. The liver, spleen, right adrenal gland and pancreas are unremarkable. There is no biliary or pancreatic ductal dilatation. There is no evidence for a bowel obstruction. Left colon diverticulosis is noted without evidence for acute diverticulitis. Left periureteral infiltration is present. There is mild right perinephric infiltration. No acute fracture or suspicious lesion is identified within visualized skeletal structures. IMPRESSION: 1. Asymmetric left perinephric and periureteral infiltration with possible urothelial thickening. The findings favor an infectious process such as left pyelonephritis/pyelitis. A recently passed calculus could appear similar although is considered less likely. 2. No bowel obstruction. 3. Left colon diverticulosis without evidence for acute diverticulitis. ACT 112: Negative or not required by law. Electronically signed by: Aguila Butler M.D. 11/20/2020 5:00 PM Dictated: 11/20/20 165Transcribed: 11/20/201651 LEFT SHOULDER 3 VIEWS CLINICAL HISTORY: Left shoulder pain. FINDINGS: 3 views of the left shoulder are obtained. No prior studies are available for comparison at the time of dictation. The skeletal structures are osteopenic. There is no radiographic evidence of fracture or dislocation. The g lenohumeral and acromioclavicular joints are maintained. There is evidence of calcific tendinopathy. The overlying soft tissues are otherwise normal in appearance. The left lung parenchyma is clear as visualized. IMPRESSION: 1. No acute bony abnormality is identified. 2. Calcific tendinopathy. Electronically signed by: Carl Costello M.D. 11/20/2020 4:28 PM Dictated: 11/20/201627Transcribed: 11/20/201627 CT SCAN OF THE BRAIN WITHOUT IV CONTRAST CLINICAL HISTORY: Fall. COMPARISON STUDY: CT of the brain dated 05/06/2016. TECHNIQUE: Unenhanced axial CT scan of the brain is performed from the vertex to the skull base. A dose lowering technique was utilized adhering to the principles of ALARA. The examination is degraded by streak artifact from aneurysm coils. FINDINGS: Brain parenchyma: Large foci of encephalomalacia throughout the right hemisphere consistent with remote insults. There is ex vacuo dilatation of the right lateral ventricle. There is no hemorrhage, mass effect, or evidence of acute territorial ischemia by CT criteria. Hamilton-white matter differentiation is preserved. No extra-axial fluid collection is seen. Ventricles, sulci, cisterns: Normal in configuration. Intracranial vasculature: There is atherosclerotic calcification of the cavernous carotid arteries. Aneurysm coils are noted in the right aspect of the suprasellar region. Calvarium: The skeletal structures are osteopenic. There is postoperative change along the right convexity. No depressed calvarial fracture is identified. Sinuses and mastoids: The visualized paranasal sinuses are clear. The mastoid air cells are well pneumatized. Orbits: The bony orbits are grossly intact. IMPRESSION: 1. There is no hemorrhage, mass effect, or evidence of acute territorial ischemia by CT criteria. 2. Chronic and postoperative changes as above. ACT 112: Negative or not required by law. Electronically signed by: Carl Costello M.D. 11/20/2020 4:53 PM Dictated: 11/20/201649Transcribed: 11/20/201649 SINGLE VIEW CHEST CLINICAL HISTORY: Atypical chest pain. FINDINGS: An AP, portable, upright chest radiograph is compared to study dated 05/06/2016. The cardiomediastinal silhouette is unremarkable. There is bibasilar scarring/atelectasis. No airspace consolidation or large pleural effusion is identified. No pneumothorax is seen. The skeletal structures are osteopenic. The bony thorax is grossly intact. IMPRESSION: No acute cardiopulmonary abnormality. ACT 112: Negative or not required by law. Electronically signed by: Carl Costello M.D. 11/20/2020 4:27 PM Dictated: 11/20/20 162Transcribed: 11/20/201626 Diabetes Follow up Diabetes Follow-up Needed for HgbA1c >9% Hospital Course (1) Sepsis: (2) Pyelonephritis: Gram Negative bacteremia Present to the ER with C/O dysuria, hematuria x 4-5 days and nausea & vomiting x 3 days with left flank pain. On admission she was found afebrile, tachycardic in ER 107, WBC: 18.9, UA consistent with infection CT abd/pelvis on admission showed asymmetric left perinephric and periureteral infiltration with possible urothelial thickening. The findings favor an in fectious process such as left pyelonephritis/pyelitis Received IV cefepime and IVF on admission Urine cx positive for E.Coli Blood cx on 11/20/20- Grew Ecoli Repeat blood cx negative Will monitor CBC IV Cefepime was changed to Cipro Will continue PO cipro to complete 14 days course of antibiotic (3) Diabetes mellitus, type II: (4) Stress hyperglycemia: Glucose on admission 510. Normal pH. Anion gap:13, + ketones urine, beta hydroxybutyric acid unavailable secondary to hemolysis Patient not taking oral diabetes medicines for several days secondary to vomiting Most recent Hba1c 10.6 In ER received insulin and IV insulin drip started. Potassium total 20 MEQ IV, 2 L NSS Pharmacy was consulted for glycemic management for IV insulin drip Will resume metformin on discharge and discontinue glimepride due to increase risk of hypoglycemia while on insulin case discussed with Pharmacy that recommended to discharge on Lantus 40 unit daily with close follow up for titrating. Follow up diabetic management outpatient at [facility] clinic Continue monitor BS (5) SAURAV (acute kidney injury): BUN: 56, creatinine: 2.5, BUN/creatinine ratio: 22. Baseline creatinine 0.9 with GFR>60 Hold lisinopril/HCTZ and Metformin on admission Received IVF and creatinine continue to improve Continue to avoid other nephrotoxic agents Nephrology consulted Creatinine 1.3 today HCTZ and Lisinopril resumed Ok from nephrology standpoint to discharge home Will repeat BMP in 1 week (6) Fall: Generalized weakness Patient with reported generalized weakness and unsteadiness. Reports fall. Likely secondary to underlying infection, hyperglycemia Left shoulder x-ray no acute fracture. No acute findings on CT head Refused inpatient rehab or home health services Continue PT./OT while inpatient (7) Hyponatremia: Pseudohyponatremia in the setting of elevated blood glucose Na: 120, glucose of 501, Corrected Na: 128 Received 2L NSS in ER Na AM (11/21/2020) 128, now improved 132 Na normalized, currently 141 (8) HTN (hypertension): BP has been fluctuated BP improved Lisinopril/HCTZ was held due to SAURAV BP meds have been resumed Monitor BP (9) CVA (cerebral vascular accident): Continue Plavix, simvastatin (10) Anxiety and depression: Hold bupropion for now secondary to SAURAV. Decrease dose Vistaril secondary to SAURAV DVT Prophylaxis: heparin subq CODE Status DNR/DNI Follows with Dr Pimentel for routine care Pt's daughter Violetta, to be updated at [phone].(Pt did not want to give me permission to call her daughter today ) Total Time Total Time Spent Total Time Spent (In Minutes): 35 minutes Total Time Includes: Examination of the Patient, Discharge Planning, Medication Reconciliation, Communication With Other Providers and Other Discharge Plan Discharge Items Patient Disposition: Home - Self-Care Reason For Visit: PYELONEPHRITIS Discharge Diagnosis: Sepsis Pyelonephritis Gram Negative bacteremia Diabetes mellitus, type II: Stress hyperglycemia: SAURAV (acute kidney injury): Fall: Generalized weakness Hyponatremia:HTN (hypertension): Activity: Resume your previous activity Non-emergency contact: Primary Care Provider and Payroll Examiner Call non-emergency contact if: you have any medication questions and your temperature is above 101 Follow-up/Referrals: Dane Pimentel DO [Outside Practitioners] - (Date & Time 12/02/2020 11:20 AM Provider Dane Pimentel DO Department Family [facility] ) Diet: Carb Consistent or DM2 and Heart Healthy Addtl Attending Provider Instructions: Follow up with your primary care provider Dr. Pimentel on 12/02/2020 at 11:20 AM Follow up up with nephrology (kidney specialist) in 2 to 4 weeks (Please call to arrange for the appointment ) Follow up with the [facility] clinic to manage your blood sugar and your insulin Check BMP in 1 week to monitor your kidney function Check CBC in 1 week to monitor your leukocytocis Continue monitor your blood sugar at least twice a day and bring your blood sugar log at your next appointment with your physician Follow up a healthy diabetes diet with a low carb and limited concentrated sweet intake Fall precaution Continue physical and occupational therapy Complete the course of the antibiotic Glimepiride was discontinued to avoid the risk of low blolod sugar while on Insulin it is very important to check your blood sugar every day. Addtl Stockroom Supervisor Provider Instructions: -pls arrange follow up in kidney clinic in [facility] video visit ok any provider within 2-4 wks of discharge -bmp within one week of discharge Pending Studies at Discharge: No Stand-Alone Forms: My CTQuan, Smoking Cessation Medications and DC Order Prescriptions: New ciprofloxacin HCl 500 mg Tablet 500 mg PO BID 7 Days Qty: 14 RF: 0 Novolin N Flexpen 100 unit/mL (3 mL) insulin pen 25 unit subcut UD Qty: 15 RF: 0 Continued simvastatin 40 mg tablet 40 mg PO HS RF: 0 metformin 1,000 mg tablet 1,000 mg PO BIDM RF: 0 lisinopril-hydrochlorothiazide 10-12.5 mg tablet 1 tab PO DAILY RF: 0 hydroxyzine pamoate 25 mg capsule 25 mg PO HS PRN (Reason: Anxiety or Itching) RF: 0 bupropion HCl 150 mg tablet sustained-release 12 hr 150 mg PO BID RF: 0 clopidogrel 75 mg tablet 75 mg PO DAILY RF: 0 Discontinued glimepiride 4 mg tablet 6 mg PO DAILYBB RF: 0 Discharge Orders: Discharge Order (Routine); Ordered 11/27/20 Ordered By: Cira Newton/Other Patient Handouts: Diabetes and Drinking Alcohol, Long-Term Complications of Diabetes, Insulin How to Use and Where to Inject, Exercise to Manage Your Blood Sugar, Diabetes: Keeping Feet Healthy, Diabetes: Inspecting Your Feet, Diabetes Exercise Get Started, Diabetes: Activity Tips, Diabetes: Exams and Tests, Discharge Instructions Using ..., Managing Diabetes: The A1C Test, Diabetes Carbs Fats Protein, Getting Support When You Have Diabetes, Insulin Injection Steps, ED Using an Injection Pen Admission Data Admit Date/Time: 11/20/20 18:09 Attending Provider: Cira Diop Admit Provider: Alma Ventura Primary Care Provider: PCP,NO Other Providers: Alma Ventura ; Kevan Quiroz Other Interventions: Discharge Summary Assessment (RN) Last Done: 11/27/20 17:36
== END 2020-11-27 18:32 | disposition home or self-care (01) | DRG 871 ==
LOC: ED 15:38 → SUATTDRO 18:09 → 2S 18:09 → 3N 11-24 10:13